=== PATIENT | female | born 1990 | race Caucasian/White ===

== ENCOUNTER 2018-06-18 13:06 | Emergency (ER) | payer MEDICAID, SELFPAY ==
[2018-06-18 13:07] VITALS: BP 109/67; PULSE 90; RESP 16; TEMP 36.5; O2SAT 98; BMI 30.7
[2018-06-18] MEDS: Ondansetron ODT 4 MG Tablet PO (14:06)
[2018-06-18] MEDS: Naproxen 500 MG Tablet PO (14:06)
--- NOTE | 2018-06-18 14:35 | ED.VISSUMM ---
- ER Visit Summary Date of Service: 06/18/18 Chief Complaint: Right hip pain History of Present Illness: The patient is a [address] Hess. She reports that she has right hip pain that began during her last . Been present for approximately 1-1/2 years. States pain worsened yesterday. Says sharp pains 10 at 10 worsening a 10 currently. Is worsened by walking. She reports that today her right leg gave out and she fell. She denies any other injuries. Physical Examination: Vitals: Stable. Afebrile. Neck: No vertebral tenderness. Full ROM without difficulty. Cleared by NEXUS criteria. Back: No vertebral tenderness. General: A&O x 3. NAD. Cardiovascular exam: Regular rate and rhythm, no murmur, rub or gallop. Respiratory exam: Chest nontender. No crepitus. Clear to auscultation bilaterally. No wheezes or stridor. Abdominal exam: Soft, nontender, nondistended, normal bowel sounds. No pain in RUQ or LUQ specifically. No peritoneal signs. Extremity: Moderate tenderness palpation of the greater trochanter and over the pelvis posteriorly. No pain with internal/external rotation of her hip. She is neurovascular intact distal is normal sensation light touch less than 2 second capillary refill. 2+ dorsalis pedis pulse. No pain with range of motion. Test Results: Right hip/pelvis x-ray is negative. Emergency Department Course and Treatment: Patient was treated with naproxen. Treatment Plan: I do not think that it is in the patient's best interest to treat her chronic right hip pain with opiate-based medications. She will be discharged on naproxen and crutches. Instructed to follow-up her primary care physician for further evaluation potentially referral to physical therapy which she did not complete previously. Disposition: To home in improved and stable condition. Impression: 1. Right hip pain, chronic. This note was generated with [employer] dictation software. It may contain incorrect words, spelling, and punctuation that were not noted in review of the chart prior to signing ED Disposition - Plan for ED Patient: Disposition: Home or Assisted Living Chief Complaint: Lower Extremity Injury Instructions: ED Sprain Hip Prescriptions: Naproxen [Naprosyn] 500 mg PO BID #14 tablet Referrals: Carmen Hess [NON-STAFF] - As soon as possible
--- NOTE | 2018-06-18 14:54 | ED.RN ---
While discharging PT states she needs crutches. Asked Dr. Darling about order and he put order in. Apparently, I took too long getting her crutches and PT left angrily without crutches.
[2018-06-18 14:55] VITALS: PULSE 80; RESP 16
== END 2018-06-18 14:55 | disposition home or self-care (01) ==
PROVIDERS: Emergency Provider Emergency Medicine
DX: M25.551 Pain in right hip (principal); G89.29 Other chronic pain; R19.7 Diarrhea, unspecified; E28.2 Polycystic ovarian syndrome
CPT/HCPCS: 73502; 99283

== ENCOUNTER 2019-01-21 12:30 | Emergency (ER) | payer MEDICAID, SELFPAY ==
[2019-01-21 11:01] VITALS: BMI 31.7
[2019-01-21 12:31] VITALS: BP 144/70; PULSE 107; RESP 16; TEMP 36.6; O2SAT 99; BMI 31.3
--- NOTE | 2019-01-21 12:52 | ED.DCSUM_ITS ---
- ER Visit Summary Date of Service: 01/21/19 Chief Complaint: Low back pain History of Present Illness: The patient is a 28 F presents to the emergency department low back pain. Patient states she does do some lifting at work. She states that 3 days ago, she had a dull ache in her low back. Since then, gotten worse. States last night, she did difficulty moving around because of the pain. She describes it as a band across her lower back. It does not radiate. She denies any problems with bowel or bladder. She denies any change in gait. She did take Flexeril and tramadol with little improvement. The patient went to urgent care. Apparently, she had glucose in her urine was sent over here for evaluation. She is supposed to be on metformin, but states that her blood sugar gets low so she does not take it. Physical Examination: Afebrile, vitals unremarkable. Well-appearing female no acute distress. Head is normocephalic, atraumatic. Pupil's equal round reactive, extraocular muscles intact. Neck supple. Heart regular rate and rhythm. Lungs clear, chest nontender. Abdomen soft, nontender, nondistended. No pulsatile mass. Patient has paraspinal tenderness in the lumbar area, but no bony tenderness. Straight leg raise is negative bilaterally. 2+ symmetric lower extremity pulses. 2+ reflexes. No clonus. No weakness of dorsiflexion, plantar flexion, or extensor hallucis longus bilaterally. Test Results: [] Emergency Department Course and Treatment: The patient has no red flag symptoms. I did review her urine dip from urgent care which did have glucose. Because of this, blood work was obtained was unremarkable. Her x-ray was unremarkable. Her urine was repeated here. There is no glucose. There is some leukocytes. I am not sure if this is contaminant versus a mild urinary tract infection. She does not have CVA tenderness. Her back pain seems entirely muscular. I am going to treat her with a short course of analgesics, antispasmodics, and Bactrim. She is able to ambulate without issue. She is comfortable with evaluation. She will be discharged home. Treatment Plan: [] Disposition: Discharge Impression: 1. Lumbar strain This note was generated with [employer] dictation software. It may contain incorrect words, spelling, and punctuation that were not noted in review of the chart prior to signing ED Disposition - Plan for ED Patient: Disposition: Home or Assisted Living Instructions: ED Low Back Pain Injury Prescriptions: Hydrocodone Bitart/Apap 5-325 [[place] 5MG-325MG] 1 tab PO Q6H PRN PRN 3 Days #10 tab PRN Reason: Pain Smz/Tmp Ds [Bactrim Ds] 1 tab PO BID #14 tab Cyclobenzaprine [Flexeril] 10 mg PO TID PRN #20 tab PRN Reason: Muscle Spasm Referrals: Care Physician,No Primary [Primary Care Provider] -
[2019-01-21 13:08] LABS: Absolute Lymphocyte Count 2.68 X10^3/ul (0.83-4.51); Absolute Neutrophil Count 3.3 X10^3/uL (2.0-7.7); Basophil# 0.03 X10^3/uL; Basophil% 0.5 % (0-1); Eosinophil# 0.13 X10^3/uL; Hematocrit 45.4 % (37-47); Hemoglobin 15.5 g/dl (12.0-15.0); Lymphocyte # 2.68 X10^3/ul (4.0); Lymphocyte % 40.5 % (19-41); Mean Corp Hgb Conc 34.1 g/gl (32-36); Mean Corpuscular Hgb 30.3 pg (27.0-32.0); Mean Corpuscular Volume 88.7 fL (81-99); Mean Platelet Vol. 9.4 fl (6.2-12.0); Monocyte# 0.45 X10^3/uL; Monocyte% 6.8 % (0-10); Neutrophil # 3.32 X10^3/uL (2.7-7.7); Platelet Count 193 K/mm3 (150-450); RBC Distribution Width SD 42.2 fl (35.1-43.9); Red Blood Count 5.12 M/mm3 (4.2-5.4); White Blood Count 6.6 K/mm3 (4.4-11.0)
[2019-01-21 13:09] LABS: POSITIVE COUNT NO; POSITIVE DIFFERENTIAL NO; POSITIVE MORPHOLOGY NO
[2019-01-21] MEDS: 0.9% Normal Saline 1,000 ML 1000 ML IV (13:13)
[2019-01-21] MEDS: Ondansetron 4 MG/2 ML Vial IV (13:13)
[2019-01-21] MEDS: Morphine 4 MG/ML Syringe IV (13:16)
[2019-01-21 13:19] LABS: Anion Gap 3 (5-15); BUN 10 mg/dL (7-18); BUN/Creat Ratio 12.3 RATIO (10-20); Calcium,Total 9.4 mg/dL (8.5-10.1); Chloride 108 mmol/L (98-107); Creatinine, Serum 0.81 mg/dL (0.55-1.02); EST Glomerular Filtration Rate 87 mL/min (>60); Est Glom Filt Rate - Afr Amer 106 mL/min (>60); Estimated Creatinine Clearance 98.76 ml/min; Glucose 80 mg/dL (74-106); Sodium Level 139 mmol/L (136-145)
--- NOTE | 2019-01-21 13:50 | RAD_ITS ---
STUDY: X-RAY - LUMBAR SPINE REASON FOR EXAM: Female, 28 years old. 3 day history of low back pain. TECHNIQUE: 3 view(s) of the lumbar spine were obtained. COMPARISON: None FINDINGS: Normal lumbar lordosis. There is a minimal levoscoliosis of the lumbar spine. There is a normal alignment of the vertebrae. Normal vertebral bodies and endplates. Normal disc space heights. The soft tissue structures are unremarkable. RAD/Lumbar Spine 2 or 3 Views IMPRESSION: Normal x-ray examination of the lumbar spine. Electronically Signed: Jayson Bowman, at 14:36 EDT , Service support ,
[2019-01-21 14:59] LABS: Bacteria 0 SEEN /hpf (None Seen); Mucous, Urine 0 SEEN /hpf (<or=2+); Red Blood Cells-Urine 0 SEEN /hpf (0-5)
[2019-01-21 15:01] LABS: Color, Urine Yellow (Yellow); Glucose, Dipstick Normal (Normal); Ketone-Dipstick Negative (Negative); Leukocyte Esterase-Dipstick 25 /ul (Negative); Nitrite-Dipstick Negative (Negative); Occult Blood-Urine Negative /ul (Negative); Protein-Dipstick Negative (Negative); Urine Bilirubin Dipstick Negative (Negative); Urine Clarity Clear (Clear); Urine Urobilinogen Normal (Normal)
[2019-01-21 15:07] LABS: Squamous Epithelial Cells - UA 0-5 SEEN /hpf (5-10); White Blood Cells 0-5 SEEN /hpf (0-5)
[2019-01-21] MEDS: LORazepam 2 MG/ML Syringe 1 MG IV (15:13)
[2019-01-21] MEDS: Ketorolac 30 MG/ML Syringe IV (15:13)
[2019-01-21 15:19] VITALS: BP 119/69; PULSE 80; RESP 18; O2SAT 98
[2019-01-21 16:02] VITALS: RESP 18
--- NOTE | 2019-01-21 16:03 | ED.RN ---
PT HAD ATIVAN AT 1513, PT CALLED A FAMILY MEMBER FOR A RIDE HOME.
== END 2019-01-21 16:06 | disposition home or self-care (01) ==
LOC: ED 12:55
PROVIDERS: Emergency Provider Emergency Medicine
DX: S29.012A Strain of muscle and tendon of back wall of thorax, initial encounter (principal); X58.XXXA Exposure to other specified factors, initial encounter; Y93.9 Activity, unspecified; Y92.9 Unspecified place or not applicable; Y99.9 Unspecified external cause status; E11.9 Type 2 diabetes mellitus without complications; F41.9 Anxiety disorder, unspecified
CPT/HCPCS: 72100; 80048; 81001; 85025; 96361; 96374; 96375; 99284; J7030; A4216; J2405

== ENCOUNTER 2019-01-27 08:55 | Emergency (ER) | payer MEDICAID, SELFPAY ==
[2019-01-27 08:57] VITALS: BP 122/68; PULSE 96; RESP 20; TEMP 35.9; O2SAT 100; BMI 33.7
--- NOTE | 2019-01-27 09:13 | CT_ITS ---
STUDY: CT ABDOMEN AND PELVIS WITH CONTRAST REASON FOR EXAM: Female, 28 years old. Right flank pain and lower abdominal pain. RADIATION DOSAGE (If Supplied By Facility): CTDIvol = ( 12.94 ) mGy, DLP = ( 1190.83 ) mGycm TECHNIQUE: Transaxial images were obtained from the dome of the diaphragm to the symphysis pubis without oral contrast. 100mL IV Isovue 300 was administered. Sagittal and coronal images were reconstructed. Individualized dose optimization techniques were used for this CT. COMPARISON: None. FINDINGS: Mild degree of increased linear markings at the lung bases suggestive of bibasilar linear atelectasis. The visualized portions of the heart are within normal limits. There is decreased attenuation of the liver consistent with steatosis. Normal gallbladder and extrahepatic biliary system. Normal spleen. Normal pancreas. Normal bilateral adrenal glands. Normal right kidney. Normal left kidney. Normal visualized stomach. Normal small intestine. Normal colon. The appendix is visualized and appears normal. Normal abdominal aorta. Normal inferior vena cava. Normal retroperitoneum. Normal urinary bladder. Small bilateral benign-appearing inguinal lymph nodes. There is a small umbilical hernia containing fat. Normal osseous structures. Straightening of the normal lumbar lordosis. CT/Abdomen/Pelvis W IV Cont ONLY IMPRESSION: Fatty infiltration of the liver. Electronically Signed: Jayson Bowman, at 10:40 EDT , Service support ,
--- NOTE | 2019-01-27 09:14 | ED.VISSUMM ---
- ER Visit Summary Date of Service: 01/27/19 Chief Complaint: Back and abdominal pain History of Present Illness: The patient is a 28 F who notes 10 days of continued low back pain. She was seen in the emergency department last week for this. She states that after the muscle relaxants it seems to be more localized on the left lower SI region. She also notes some continued discomfort on the right. Now she notes lower abdominal pain. She states that she feels some radiation to the flanks. She notes she has a history of PCOS. She has no primary care physician and states that she tried to call one but they cannot see her until March. 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 She states that she is tired of low back pain and needs a gone because she has missed too much work. No fevers. No rashes. She states that she had some dysuria but she did not have any when she urinated here in the department. No constipation or diarrhea. Physical Examination: Afebrile vital signs are stable Gen: Well-nourished well-developed Head: Normocephalic atraumatic Eyes: Perrl EOMI ENT: TMs clear no rhinorrhea moist mucous membranes Neck: Supple no lymphadenopathy no JVD nontender CVS: Regular rate rhythm no murmurs normal S1-S2 Respiratory: No distress clear to auscultation bilaterally chest nontender Abdomen: Soft tenderness in the lower quadrants without guarding or rebound nondistended normal bowel sounds no masses Back: Painful range of motion in the low back and tenderness to palpation particularly on the left SI region Extremity: Nontender no edema Skin: Normal color no rash Neuro: alert orientated ?3 CN II-XII intact normal strength sensation reflexes gait cerebellar Psych: Normal affect normal mood Emergency Department Course and Treatment: CBC and BMP showed glucose. Urinalysis contaminated 5-10 epithelial cells 2+ bacteria negative nitrates. test is negative. CT down pelvis demonstrated no obvious pathology to explain the patient's pain. A pelvic ultrasound was obtained which was also negative. Patient received Toradol for pain. At this point I do not have an obvious cause for the patient's pain. It is reproducible with her movement so there is very likely a musculoskeletal component to it however is not gotten better in 10 days. 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 Impression: 1. Acute back pain 2. Acute pelvic pain This note was generated with [employer] dictation software. It may contain incorrect words, spelling, and punctuation that were not noted in review of the chart prior to signing ED Disposition - Plan for ED Patient: Disposition: Home or Assisted Living Instructions: ED Pelvic Pain [facility] Prescriptions: Ketorolac [Toradol] 10 mg PO TID PRN PRN #15 tab PRN Reason: Pain Referrals: Praveen Russell MD [STAFF PHYSICIAN] - (Call to arrange early follow-up with primary care) Additional Instructions: I would also recommend you call your INVESTMENT SALES ASSISTANT for follow-up.
[2019-01-27 09:36] LABS: Mucous, Urine 0 SEEN /hpf (<or=2+)
[2019-01-27 09:39] LABS: Absolute Lymphocyte Count 1.32 X10^3/ul (0.83-4.51); Absolute Neutrophil Count 4.5 X10^3/uL (2.0-7.7); Basophil# 0.03 X10^3/uL; Basophil% 0.5 % (0-1); Eosinophil# 0.17 X10^3/uL; Eosinophils% 2.6 % (0-5); Hematocrit 43.3 % (37-47); Hemoglobin 15.1 g/dl (12.0-15.0); Lymphocyte # 1.32 X10^3/ul (4.0); Lymphocyte % 19.9 % (19-41); Mean Corp Hgb Conc 34.9 g/gl (32-36); Mean Corpuscular Hgb 30.5 pg (27.0-32.0); Mean Corpuscular Volume 87.5 fL (81-99); Mean Platelet Vol. 9.4 fl (6.2-12.0); Monocyte# 0.67 X10^3/uL; Monocyte% 10.1 % (0-10); Neutrophil # 4.45 X10^3/uL (2.7-7.7); Neutrophil % 66.9 % (47-70); Platelet Count 181 K/mm3 (150-450); RBC Distribution Width CV 12.9 % (11.6-14.6); RBC Distribution Width SD 41.2 fl (35.1-43.9); Red Blood Count 4.95 M/mm3 (4.2-5.4); White Blood Count 6.6 K/mm3 (4.4-11.0)
[2019-01-27 09:40] LABS: Color, Urine Yellow (Yellow); Glucose, Dipstick Normal (Normal); Ketone-Dipstick Negative (Negative); Leukocyte Esterase-Dipstick 25 /ul (Negative); Nitrite-Dipstick Negative (Negative); Occult Blood-Urine 25 /ul (Negative); Protein-Dipstick 15 mg/dl (Negative); Urine Bilirubin Dipstick Negative (Negative); Urine Clarity Sl. Cloudy (Clear); Urine Urobilinogen 1 mg/dl (Normal)
[2019-01-27 09:44] LABS: Internal QC Validated? YES +Cl - CLEAR BKGD; Pregnancy, Urine Negative Negative
[2019-01-27 09:47] LABS: POSITIVE COUNT NO; POSITIVE DIFFERENTIAL NO; POSITIVE MORPHOLOGY NO
[2019-01-27 09:55] LABS: Bacteria 2+ /hpf (None Seen); Red Blood Cells-Urine 0-5 SEEN /hpf (0-5); Squamous Epithelial Cells - UA 5-10 SEEN /hpf (5-10); White Blood Cells 0-5 SEEN /hpf (0-5)
[2019-01-27 09:56] LABS: ALB/GLOB Ratio 1.3 RATIO (0.9-2.4); AST(SGOT) 24 U/L (15-37); Alanine Aminotransfer ALT/SGPT 37 U/L (13-56); Albumin, Serum 4.2 g/dL (3.2-5.0); Alkaline Phosphatase 86 U/L (45-117); Anion Gap 5 (5-15); BUN 10 mg/dL (7-18); BUN/Creat Ratio 9.9 RATIO (10-20); Calcium,Total 8.9 mg/dL (8.5-10.1); Chloride 107 mmol/L (98-107); Creatinine, Serum 1.01 mg/dL (0.55-1.02); EST Glomerular Filtration Rate 68 mL/min (>60); Est Glom Filt Rate - Afr Amer 82 mL/min (>60); Globulin 3.3 g/dL (2.2-4.2); Glucose 113 mg/dL (74-106); Potassium 4.3 mmol/L (3.5-5.1); Protein, Total 7.5 g/dL (6.4-8.2); Sodium Level 139 mmol/L (136-145)
--- NOTE | 2019-01-27 10:58 | US_ITS ---
STUDY: ULTRASOUND OF THE FEMALE PELVIS - COMPLETE REASON FOR EXAM: Female, 28 years old. Bilateral pelvic pain for 10 days. Dyspareunia. History of polycystic ovary disease. LMP: 2 years ago. TECHNIQUE: Transabdominal and Transvaginal TECHNICAL QUALITY: Adequate. COMPARISON: None. FINDINGS: The uterus is anteverted and is in a midline position. The uterus measures 7.9 cm x 5.1 cm x 4.4 cm. There is a Nabothian cyst of the cervix. The endometrium measures 6 mm in thickness, and is hyperechoic. There is no demonstrated endometrial mass. There is no demonstrated myometrial mass. I.U.D. - The patient does not have an I.U.D. The right ovary is visualized. The right ovary measures 3.9 cm x 2.8 cm x 2.5 cm. There is no right ovarian cyst or ovarian mass. There is no visualized right adnexal mass or complex lesion. There is normal arterial and normal venous vascularity. The left ovary is visualized. The left ovary measures 3.9 cm x 3.8 cm x 2.4 cm. There is no left ovarian cyst or ovarian mass. There is no visualized left adnexal mass or complex lesion. There is normal arterial and normal venous vascularity. There is no fluid in the cul-de-sac. Polycystic ovary disease: Yes. US/Transvaginal Non- IMPRESSION: Normal female pelvis. Electronically Signed: Jayson Bowman, at 13:24 EDT , Service support ,
[2019-01-27] MEDS: Ketorolac 30 MG/ML Syringe IV (11:00)
[2019-01-27 13:48] VITALS: BP 110/89; PULSE 82; RESP 16; O2SAT 98
== END 2019-01-27 13:52 | disposition home or self-care (01) ==
PROVIDERS: Emergency Provider Emergency Medicine
DX: M54.5 Low back pain (principal); R10.2 Pelvic and perineal pain; R30.0 Dysuria; E28.2 Polycystic ovarian syndrome; Z72.0 Tobacco use; Z79.899 Other long term (current) drug therapy
CPT/HCPCS: 74177; 76830; 80053; 81001; 81025; 85025; 96374; 99283; Q9967; A4216

== ENCOUNTER → 2019-04-29 13:44 | Outpatient (CLI) | payer MEDICAID, SELFPAY ==
[2019-04-29 11:30] VITALS: BMI 33.7
[2019-04-29 14:36] LABS: Mucous, Urine 0 SEEN /hpf (<or=2+)
[2019-04-29 14:52] LABS: Color, Urine Yellow (Yellow); Glucose, Dipstick Normal (Normal); Ketone-Dipstick Negative (Negative); Leukocyte Esterase-Dipstick 100 /ul (Negative); Nitrite-Dipstick Positive (Negative); Occult Blood-Urine 10 /ul (Negative); Protein-Dipstick Negative (Negative); Specific Gravity, Urine 1.015 (1.002-1.030); Urine Bilirubin Dipstick Negative (Negative); Urine Clarity Sl. Cloudy (Clear); Urine Urobilinogen Normal (Normal)
[2019-04-29 15:11] LABS: Bacteria 4+ /hpf (None Seen)
[2019-04-29 15:12] LABS: Squamous Epithelial Cells - UA 10-25 SEEN /hpf (5-10)
[2019-04-29 15:14] LABS: Red Blood Cells-Urine 0-5 SEEN /hpf (0-5)
[2019-04-29 15:15] LABS: White Blood Cells 10-25 SEEN /hpf (0-5)
== END ==
PROVIDERS: Referring Provider Physician Assistant Surgical; Visit Provider Physician Assistant Surgical
DX: R39.15 Urgency of urination (principal)
CPT/HCPCS: 81001; 87086; 87088; 87186

== ENCOUNTER → 2019-05-09 14:27 | Outpatient (CLI) | payer MEDICAID, SELFPAY ==
[2019-05-09 12:24] VITALS: BMI 33.7
[2019-05-09 14:37] LABS: Mucous, Urine 0 SEEN /hpf (<or=2+); Red Blood Cells-Urine 0 SEEN /hpf (0-5); White Blood Cells 0 SEEN /hpf (0-5)
[2019-05-09 15:15] LABS: Glucose, Dipstick Normal (Normal); Ketone-Dipstick Negative (Negative); Leukocyte Esterase-Dipstick Negative /ul (Negative); Nitrite-Dipstick Positive (Negative); Occult Blood-Urine Negative /ul (Negative); Protein-Dipstick Negative (Negative); Specific Gravity, Urine 1.005 (1.002-1.030); Urine Clarity Sl. Cloudy (Clear); Urine Urobilinogen 1 mg/dl (Normal)
[2019-05-09 15:22] LABS: Color, Urine SEE COMMENT BELOW (Yellow); Urine Bilirubin Dipstick 1 mg/dL (Negative)
[2019-05-09 15:25] LABS: Bacteria 1+ /hpf (None Seen); Squamous Epithelial Cells - UA 0-5 SEEN /hpf (5-10)
== END ==
PROVIDERS: Referring Provider Physician Assistant Surgical; Visit Provider Physician Assistant Surgical
DX: R30.0 Dysuria (principal)
CPT/HCPCS: 81001; 87086

== ENCOUNTER → 2019-05-16 13:07 | Outpatient (CLI) | payer MEDICAID, SELFPAY ==
[2019-05-14 15:13] VITALS: BMI 32.7
[2019-05-16 14:18] LABS: Amphetamine Urine VISTA NEGATIVE (<1000 ng/mL); Barbiturate Urine VISTA NEGATIVE (< 200 ng/mL); Benzodiazepine Urine VISTA NEGATIVE (< 200 ng/mL); Cocaine Urine VISTA NEGATIVE (< 300 ng/mL); Ecstacy Urine VISTA NEGATIVE (< 500 ng/mL); Methadone Urine VISTA NEGATIVE (< 300 ng/mL); PCP Urine VISTA NEGATIVE (< 25 ng/mL); THC Urine VISTA NEGATIVE (< 50 ng/mL); Vista UDS pH Range 6
== END ==
PROVIDERS: Family Provider Internal Medicine; PCP Internal Medicine; Referring Provider Internal Medicine; Visit Provider Internal Medicine
DX: F41.9 Anxiety disorder, unspecified (principal)
CPT/HCPCS: 80307

== ENCOUNTER → 2019-05-22 13:55 | Outpatient (CLI) | payer MEDICAID, SELFPAY ==
[2019-05-14 15:13] VITALS: BMI 32.7
--- NOTE | 2019-05-22 14:06 | US_ITS ---
STUDY: RENAL ULTRASOUND - COMPLETE REASON FOR EXAM: Female, 29 years old. Urinary tract infection TECHNIQUE: Ultrasound evaluation of the kidneys was performed with real-time and static munoz-scale imaging. COMPARISON: None. FINDINGS: RIGHT KIDNEY: Normal location of the right kidney, which is normal in size. The right kidney measures 10.2 cm. There is a normal cortex of the right kidney. The renal cortex measures 1.3 cm. There is no right renal mass or cyst. There are no right renal calculi. There is no right hydronephrosis. DISTAL RIGHT URETER: There is non-visualization of the distal right ureter. There is no demonstrated right ureterovesical junction calculus. There is a visualized right ureteral jet. LEFT KIDNEY: Normal location of the left kidney, which is normal in size. The left kidney measures 11.2 cm. There is a normal cortex of the left kidney. The renal cortex measures 1.3 cm. There is no left renal mass or cyst. There are no left renal calculi. There is no left hydronephrosis. DISTAL LEFT URETER: There is non-visualization of the distal left ureter. There is no demonstrated left ureterovesical junction calculus. There is a visualized left ureteral jet. BLADDER: The distended urinary bladder has a volume of 254 ml. The empty urinary bladder has a volume of 36 ml. There is a normal wall thickness of the distended urinary bladder. There is no demonstrated mass within the urinary bladder. There are no demonstrated bladder calculi. US/Kidney and Bladder IMPRESSION: Normal ultrasound of the kidneys and urinary bladder. No hydronephrosis. Electronically Signed: Gadiel Lynn MD at 16:59 EDT , Service support ,
== END ==
PROVIDERS: Family Provider Internal Medicine; PCP Internal Medicine; Referring Provider Urology; Visit Provider Urology
DX: N39.0 Urinary tract infection, site not specified (principal)
CPT/HCPCS: 76770

== ENCOUNTER 2019-06-01 15:12 | Emergency (ER) | payer MEDICAID, SELFPAY ==
[2019-05-14 15:13] VITALS: BMI 32.7
[2019-06-01 15:13] VITALS: BP 124/93; PULSE 105; RESP 16; TEMP 36.9; O2SAT 97; BMI 29.0
[2019-06-01 16:37] LABS: Amphetamine Urine VISTA NEGATIVE (<1000 ng/mL); Barbiturate Urine VISTA NEGATIVE (< 200 ng/mL); Benzodiazepine Urine VISTA NEGATIVE (< 200 ng/mL); Cocaine Urine VISTA NEGATIVE (< 300 ng/mL); Ecstacy Urine VISTA NEGATIVE (< 500 ng/mL); Methadone Urine VISTA NEGATIVE (< 300 ng/mL); PCP Urine VISTA NEGATIVE (< 25 ng/mL); THC Urine VISTA NEGATIVE (< 50 ng/mL); Vista UDS pH Range 6
--- NOTE | 2019-06-01 16:42 | ED.DCSUM_ITS ---
- ER Visit Summary Date of Service: 06/01/19 Chief Complaint: Requesting drug screen History of Present Illness: The patient is a 29 F who is requesting a drug screen. She was accused of taking benzodiazepines. She has no symptoms. Physical Examination: Exam unremarkable. Test Results: Tox screen was negative. Emergency Department Course and Treatment: Patient was given a copy of her tox screen. Follow-up as needed. Treatment Plan: As above Disposition: Discharge Impression: 1. Requesting drug screen This note was generated with [employer] dictation software. It may contain incorrect words, spelling, and punctuation that were not noted in review of the chart prior to signing ED Disposition - Plan for ED Patient: Referrals: Nithya Guevara MD [Primary Care Provider] -
== END 2019-06-01 17:01 | disposition home or self-care (01) ==
LOC: ED 16:21
PROVIDERS: Emergency Provider Emergency Medicine; Family Provider Internal Medicine; PCP Internal Medicine
DX: Z04.89 Encounter for examination and observation for other specified reasons (principal)
CPT/HCPCS: 80307; 99282

== ENCOUNTER → 2019-06-11 16:29 | Outpatient (CLI) | payer MEDICAID, SELFPAY ==
[2019-06-01 15:13] VITALS: BMI 29.0
--- NOTE | 2019-06-11 16:30 | RAD_ITS ---
STUDY: X-RAY - LEFT HAND REASON FOR EXAM: Female, 29 years old. Trauma TECHNIQUE: 3 view(s) of the hand. COMPARISON: None. FINDINGS: Normal radiocarpal articulation. Normal distal radioulnar joint. Normal visualized carpal bones. Normal carpal articulations Normal carpometacarpal articulation of the thumb. Normal second through fifth carpometacarpal joints. Normal metacarpi. Normal metacarpophalangeal joint of the thumb. Normal interphalangeal joint of the thumb. Normal proximal and distal phalanges of the thumb. Normal metacarpophalangeal joints of the second through fifth fingers. Normal proximal and distal interphalangeal joints of the second through fifth fingers. Normal phalanges of the second through fifth fingers. The soft tissue structures are unremarkable. RAD/Hand Min 3 Views IMPRESSION: Normal x-ray examination of the hand. Electronically Signed: Harry Silva MD at 16:51 EDT , Service support ,
== END ==
PROVIDERS: Family Provider Internal Medicine; PCP Internal Medicine; Referring Provider Physician Assistant; Visit Provider Physician Assistant
DX: S67.02XA Crushing injury of left thumb, initial encounter (principal); X58.XXXA Exposure to other specified factors, initial encounter; Y93.9 Activity, unspecified; Y92.9 Unspecified place or not applicable; Y99.9 Unspecified external cause status
CPT/HCPCS: 73130

== ENCOUNTER → 2019-07-17 08:27 | Outpatient (CLI) | payer MEDICAID, SELFPAY ==
[2019-07-16 16:44] VITALS: BMI 34.8
[2019-07-17 08:36] LABS: Red Blood Cells-Urine 0 SEEN /hpf (0-5); White Blood Cells 0 SEEN /hpf (0-5)
[2019-07-17 10:18] LABS: Color, Urine Yellow (Yellow); Glucose, Dipstick 1000 mg/dl (Normal); Ketone-Dipstick Negative (Negative); Leukocyte Esterase-Dipstick Negative /ul (Negative); Nitrite-Dipstick Negative (Negative); Occult Blood-Urine Negative /ul (Negative); Protein-Dipstick Negative (Negative); Urine Bilirubin Dipstick Negative (Negative); Urine Clarity Sl. Cloudy (Clear); Urine Urobilinogen Normal (Normal); Urine pH 6.5 (5.0 - 8.0)
[2019-07-17 10:25] LABS: Bacteria 1+ /hpf (None Seen); Mucous, Urine 1+ /hpf (<or=2+); Squamous Epithelial Cells - UA 0-5 SEEN /hpf (5-10)
== END ==
PROVIDERS: Family Provider Internal Medicine; PCP Internal Medicine; Referring Provider Nurse Practitioner Family; Visit Provider Nurse Practitioner Family
DX: A02.9 Salmonella infection, unspecified (principal)
CPT/HCPCS: 81001; 87086; 87088; 87506

== ENCOUNTER → 2019-07-23 11:37 | Outpatient (CLI) | payer MEDICAID, SELFPAY ==
[2019-07-16 16:44] VITALS: BMI 34.8
== END ==
PROVIDERS: Family Provider Internal Medicine; PCP Internal Medicine; Referring Provider Nurse Practitioner Family; Visit Provider Nurse Practitioner Family
DX: A02.9 Salmonella infection, unspecified (principal)
CPT/HCPCS: 87506

== ENCOUNTER → 2020-01-12 13:02 | Outpatient (CLI) | payer MEDICAID, SELFPAY ==
[2019-07-16 16:44] VITALS: BMI 34.8
[2020-01-12 15:43] LABS: Hematocrit 38.5 % (37-47); Hemoglobin 12.7 g/dL (12.0-15.0); Mean Platelet Vol. 9.8 fl (6.2-12.0); Platelet Count 201 K/mm3 (150-450); RBC Distribution Width CV 14.1 % (11.6-14.6); RBC Distribution Width SD 46.5 fl (35.1-43.9); Red Blood Count 4.23 M/mm3 (4.2-5.4); White Blood Count 9.2 K/mm3 (4.4-11.0)
[2020-01-12 16:15] LABS: ALB/GLOB Ratio 0.7 RATIO (0.9-2.4); AST(SGOT) 12 U/L (15-37); Alanine Aminotransfer ALT/SGPT 13 U/L (13-56); Albumin, Serum 2.7 g/dL (3.2-5.0); Alkaline Phosphatase 76 U/L (45-117); Anion Gap 8 (5-15); BUN 9 mg/dL (7-18); BUN/Creat Ratio 15.4 RATIO (10-20); Calcium,Total 8.6 mg/dL (8.5-10.1); Chloride 110 mmol/L (98-107); Creatinine, Serum 0.58 mg/dL (0.55-1.02); EST Glomerular Filtration Rate 127 mL/min (>60); Est Glom Filt Rate - Afr Amer 154 mL/min (>60); Globulin 3.8 g/dL (2.2-4.2); Glucose 150 mg/dL (74-106); Potassium 3.8 mmol/L (3.5-5.1); Protein, Total 6.5 g/dL (6.4-8.2); Sodium Level 139 mmol/L (136-145)
== END ==
PROVIDERS: PCP Internal Medicine
DX: Z34.93 Encounter for supervision of normal pregnancy, unspecified, third trimester (principal); L29.9 Pruritus, unspecified
CPT/HCPCS: 80053; 85027

== ENCOUNTER 2020-07-09 17:14 | Emergency (ER) | payer MEDICAID, SELFPAY ==
[2020-03-19 10:59] VITALS: BMI 34.8
[2020-07-09 17:15] VITALS: BP 122/71; PULSE 83; RESP 16; TEMP 36.3; O2SAT 100; BMI 30.7
[2020-07-09 17:25] VITALS: BP 122/71; PULSE 83; RESP 16; TEMP 36.3; O2SAT 100
[2020-07-09] MEDS: Ondansetron 4 MG/2 ML Vial IV (17:47)
[2020-07-09] MEDS: Ketorolac 15 MG/ML Vial IV (17:48)
[2020-07-09] MEDS: Morphine 4 MG/ML Syringe IV (17:49)
--- NOTE | 2020-07-09 19:07 | ED.DCSUM_ITS ---
History of Present Illness Chief Complaint: Back Informant: Patient Onset: Hours Context: Sudden Onset Injury: - - Bending to get into a car Timing: Continuous Quality: Aching, Throbbing Location: Lumbar Current Severity: Severe Maximum Severity: Severe Worsened by: improves with: Movement, Bending Relieved by: Nothing Associated Symptoms: - - There are no associated symptoms. All of the associated symptoms should be blck/ Narrative: Patient is a 30-year-old woman who presents with acute right-sided low back pain. She was shopping. She was getting into her car when pain started. She denies radicular pain. She has bowel bladder function. No saddle paresthesia or anesthesia. She denies foot drop. She denies buckling of her knees to suggest quadricep weakness. She has no history of back problems. There is no history of trauma or fall. She denies dysuria, frequency, urgency or hematuria. She states movement or touching it causes her pain. Prior similar symptoms: No Recent Illness/Hospitalization: No - Past Medical History (1) Back pain Status: Acute (2) Cystitis Status: Acute (3) Migraine Status: Acute (4) Arrhythmia Status: Chronic Past Medical History - Allergies and Home Meds Allergies/Adverse Reactions: Allergies cyclobenzaprine [From Flexeril] Allergy (Verified 07/09/20 17:15) Swelling Penicillins Allergy (Verified 07/09/20 17:15) Swelling Primary Care Physician: Nithya Guevara MD [Primary Care Provider] - Prior records reviewed: Yes Surgical History: noncontributory Lives: With Family Smoking Status: Current every day smoker Alcohol: Rare Drugs: None Review of Systems General: Denies: Chills, Fever, Malaise, Subjective, Sweats, Weight loss, - Cardiovascular: Denies: Chest pain, Palpitations Respiratory: Denies: Dyspnea, Cough, Dyspnea on exertion Gastrointestinal: Denies: Abdominal pain, Nausea, Vomiting, Diarrhea, Melena, Hematochezia Genitourinary: Denies: Dysuria, Hematuria, Frequency Musculoskeletal: Reports: Back pain. Denies: Myalgias, Arthralgias, Neck pain, Swelling, Extremity Pain, -, - Skin: Denies: Rash, Wounds Neurological: Denies: Headache, Weakness, Parasthesia, Numbness, -, - Psych: Reports: Anxiety Endocrine: Denies: Polyuria, Polydipsia Hematologic: Denies: Easy bruising, Easy bleeding Physical Exam Vital Signs/Narrative: Vital Signs Temp Pulse Resp BP Pulse Ox 07/09/20 17:25 97.4 F L 83 16 122/71 H 100 07/09/20 17:15 97.4 F L 83 16 122/71 H 100 Inital Vital Signs reviewed: Yes General: Well nourished, Well developed Head: Normocephalic, Atraumatic Eyes: Perrl, EOMI Neck: Supple, Nontender, No lymphadenopathy, No JVD Cardiovascular: Regular rate, Regular rhythm, No murmurs, Normal S1, Normal S2 Respiratory: No distress, CTA bilaterally, Chest nontender Abdomen: Soft, Nontender, Nondistended, Normal bowel sounds, No masses. Negative for: Hepatomegaly, Splenomegaly, Mass, Pulsatile mass Rectal: Deferred Back: Normal Inspection, Paraspinal Tenderness - Right side only, Negative SLR - Right, Negative SLR - Left. Negative for: Nontender, Surgical Scar, Spinal tenderness, CVA tenderness, Positive SLR - Right, Positive SLR - Left Extremeties: Nontender, No edema Skin: Normal color, No rash Neuro: Alert, Oriented, Normal Strength, Normal Sensation, Normal DTR, Normal Gait Reflexes: Right Patellar, Right Achilles, Left Patellar, Left Achilles, - - DTR 2+. Negative for: Right Clonus, Right Babinski, Left Clonus, Left Babinski Psychological: - - Animated, tearful Diagnostic/Tx/Re-eval - Medical Decision Making IV was established and she was treated with 4 mg of morphine IV push and 15 mg of Toradol IV push. She reports no improvement. However, on exam she is no longer tender to palpation as she was when she presented. Plan is NSAIDs ice and follow-up with PCP ED Disposition - Plan for ED Patient: Disposition: Home or Assisted Living Diagnosis: Left low back strain acute, Acute low back pain without sciatica Instructions: ED LUMBAR SPRAIN/STRAIN Prescriptions: Naproxen [Naprosyn] 500 mg PO BID #14 tab Transmission Status: Pending to [id number] Referrals: Nithya Guevara MD [Primary Care Provider] - As Needed
[2020-07-09 19:33] VITALS: BP 118/68; PULSE 82; RESP 18; TEMP 36.8; O2SAT 98
[2020-07-09 19:35] VITALS: O2SAT 98
[2020-07-09 20:11] LABS: Color, Urine Straw (Yellow); Glucose, Dipstick Normal (Normal); Ketone-Dipstick Negative (Negative); Leukocyte Esterase-Dipstick 25 /ul (Negative); Nitrite-Dipstick Positive (Negative); Occult Blood-Urine 50 /ul (Negative); Protein-Dipstick Negative (Negative); Specific Gravity, Urine 1.015 (1.002-1.030); Urine Bilirubin Dipstick Negative (Negative); Urine Clarity Clear (Clear); Urine Urobilinogen Normal (Normal)
== END 2020-07-09 19:45 | disposition home or self-care (01) ==
PROVIDERS: Emergency Provider Emergency Medicine; PCP Internal Medicine
DX: S39.012A Strain of muscle, fascia and tendon of lower back, initial encounter (principal); X50.1XXA Overexertion from prolonged static or awkward postures, initial encounter; Y93.9 Activity, unspecified; Y92.810 Car as the place of occurrence of the external cause; Y99.9 Unspecified external cause status; F17.200 Nicotine dependence, unspecified, uncomplicated
CPT/HCPCS: 81002; 96374; 96375; 99283; A4216; J2405

== ENCOUNTER 2020-07-10 00:21 | Emergency (ER) | payer MEDICAID, SELFPAY ==
[2020-07-09 17:15] VITALS: BMI 30.7
[2020-07-10 00:22] VITALS: BP 126/81; PULSE 71; RESP 15; TEMP 36.4; O2SAT 97; BMI 34.4
--- NOTE | 2020-07-10 00:34 | CT_ITS ---
HISTORY: C/O BACK PAIN SUDDEN ONSET LOWER ADDITIONAL HISTORY: None provided. EXAMINATION/TECHNIQUE: CT Abdomen And Pelvis W/O Contrast Injection Enteric contrast was not given. Number of images including paperwork: [id number]. A radiation dose optimization technique was used for this scan. COMPARISON: 01/27/2019 FINDINGS: Evaluation of the abdominopelvic organs is limited in the absence of contrast. LOWER THORAX: No consolidation or pleural effusion. Hypoventilatory changes. LIVER: No concerning focal lesion. GALLBLADDER: No radiopaque calculi. BILE DUCTS: No significant biliary dilatation. SPLEEN: Unremarkable. PANCREAS: Unremarkable. ADRENAL GLANDS: Unremarkable. KIDNEYS/URETERS: Unremarkable. BOWEL: No bowel obstruction. No significant bowel wall thickening. No localized inflammation. APPENDIX: Normal. FREE FLUID: No significant free fluid. FREE AIR: None. LYMPH NODES: No pathologic appearing adenopathy. PERITONEUM, RETROPERITONEUM AND MESENTERY: Otherwise unremarkable. VASCULATURE: Unremarkable as imaged. ABDOMINAL WALL: Unremarkable. PELVIS: Unremarkable bladder. Tampon in vagina. No pelvic mass. OSSEOUS AND SOFT TISSUE STRUCTURES: No acute skeletal findings. CT/Abdomen/Pelvis without Cont IMPRESSION: No acute abdominopelvic abnormality. Individualized dose optimization techniques were used for this CT. at 0155 Reported and signed by: Joelle Myers MD Electronically Signed: Joelle Myers MD at 1:54 EDT Tel , Service support ,
--- NOTE | 2020-07-10 00:35 | ED.DCSUM_ITS ---
History of Present Illness Chief Complaint: Back Informant: Patient, Family Onset: Today Current Severity: Moderate Maximum Severity: Severe Narrative: Patient returns to the ER with right-sided back pain. She was seen in the ER earlier today for the same. She states that she threw a backpack over her shoulder earlier but did not feel pain. After try to get out of her car she had pain in the right lower side of her back. She was seen in the ER where she was given morphine and Toradol. She was discharged home with naproxen. Patient now states that she has had UTI symptoms for the past 2 weeks and is wondering if this might be her kidney that is causing her problems. She states the pain is so severe she had trouble rolling from side to side in bed and walking without assistance from her . There was no fall or direct injury to her back. She states that she has been shivering but has not been measuring a fever. - Past Medical History (1) Anxiety Status: Chronic Past Medical History - Allergies and Home Meds Allergies/Adverse Reactions: Allergies cyclobenzaprine [From Flexeril] Allergy (Verified 07/09/20 17:15) Swelling Penicillins Allergy (Verified 07/09/20 17:15) Swelling Primary Care Physician: Nithya Guevara MD [Primary Care Provider] - Prior records reviewed: Yes Surgical History: noncontributory Lives: Spouse/ Significant Other Smoking Status: Current some day smoker Review of Systems General: Reports: Chills. Denies: Fever Eyes: Denies: Visual changes - bilaterally ENT: Denies: Bilateral ear pain Cardiovascular: Denies: Chest pain Respiratory: Denies: Dyspnea, Cough Gastrointestinal: Reports: Abdominal pain - Flank pain. Denies: Nausea, Vomiting Genitourinary: Reports: Dysuria Musculoskeletal: Reports: Back pain - Right flank Skin: Denies: Rash Neurological: Denies: Headache Hematologic: Denies: Easy bruising, Easy bleeding Allergy: Denies: Uticaria Physical Exam Vital Signs/Narrative: Vital Signs Temp Pulse Resp BP Pulse Ox 07/10/20 00:22 97.6 F L 71 15 126/81 H 97 Inital Vital Signs reviewed: Yes General: Well nourished, Well developed Head: Normocephalic ENT: Moist mucous membranes Neck: Supple Cardiovascular: Regular rate, Regular rhythm Respiratory: No distress, CTA bilaterally Abdomen: Soft, Tender - Prepubic tenderness to palpation. Back: - - No reproducible tenderness over the midline spine or paraspinal muscles. Skin: Normal color Neurological: Alert, Oriented x3, - - Jaundice to pulses and good strength on testing. Psychological: Normal affect Diagnostic/Tx/Re-eval Impressions Abdomen/Pelvis CT 07/10/20 00:34 IMPRESSION: No acute abdominopelvic abnormality. Individualized dose optimization techniques were used for this CT. at 0155 Reported and signed by: Joelle Myers MD Electronically Signed: Joelle Myers MD at 1:54 EDT Tel , Service support , 07/10/20 00:34 Abdomen/Pelvis without Cont [CT] Stat Laboratory Results 07/09/20 07/10/20 07/10/20 18:40 01:00 01:00 WBC 7.3 RBC 4.51 Hgb 13.8 Hct 41.2 MCV 91.4 MCH 30.6 MCHC 33.5 RDW Std Deviation 43.3 RDW Coeff of [place] 13.0 Plt Count 181 MPV 9.9 Immature Gran % (Auto) 0.100 Neut % (Auto) 50.7 Lymph % (Auto) 38.2 [place] % (Auto) 7.7 Eos % (Auto) 2.9 Baso % (Auto) 0.4 Absolute Neuts (auto) 3.7 Absolute Lymphs (auto) 2.79 Nucleated RBC % 0 Sodium 141 Potassium 3.9 Chloride 109 H Carbon Dioxide 29.0 Anion Gap 3 L BUN 14 Creatinine 0.99 Estim Creat Clear Calc 76.37 Est GFR (MDRD) Af Amer 84 Est GFR (MDRD) Non-Af 69 BUN/Creatinine Ratio 14.2 Glucose 105 Calcium 8.8 Serum , Qual Urine Color Cancelled Urine Clarity Cancelled Urine pH Cancelled Ur Specific [place] Cancelled U Specif Grav (Refrac) Cancelled Urine Protein Cancelled Urine Glucose (UA) Cancelled Urine Ketones Cancelled Urine Occult Blood Cancelled Urine Nitrite Cancelled Urine Bilirubin Cancelled Urine Urobilinogen Cancelled Ur Leukocyte Esterase Cancelled Urine RBC 0 SEEN Urine WBC 10-25 SEEN Ur Squamous Epith Cells 5-10 SEEN Urine Bacteria 2+ Urine Mucus 0 SEEN 07/10/20 01:00 WBC RBC Hgb Hct MCV MCH MCHC RDW Std Deviation RDW Coeff of [place] Plt Count MPV Immature Gran % (Auto) Neut % (Auto) Lymph % (Auto) [place] % (Auto) Eos % (Auto) Baso % (Auto) Absolute Neuts (auto) Absolute Lymphs (auto) Nucleated RBC % Sodium Potassium Chloride Carbon Dioxide Anion Gap BUN Creatinine Estim Creat Clear Calc Est GFR (MDRD) Af Amer Est GFR (MDRD) Non-Af BUN/Creatinine Ratio Glucose Calcium Serum , Qual NEGATIVE Urine Color Urine Clarity Urine pH Ur Specific [place] U Specif Grav (Refrac) Urine Protein Urine Glucose (UA) Urine Ketones Urine Occult Blood Urine Nitrite Urine Bilirubin Urine Urobilinogen Ur Leukocyte Esterase Urine RBC Urine WBC Ur Squamous Epith Cells Urine Bacteria Urine Mucus - Medical Decision Making Patient was given Toradol, morphine, Zofran, IV fluids here. On repeat evaluation she is resting in bed. Test results are discussed with her. She does have evidence of UTI, but no evidence of significant perirenal stranding on CT scan to suggest pyelonephritis at this time. No evidence of a kidney stone. Patient be given a prescription for [place] along with Bactrim. Urine will be sent for culture. ED Disposition - Plan for ED Patient: Disposition: Home or Assisted Living Diagnosis: Cystitis, Right flank pain Instructions: ED CYSTITIS Female Adult Prescriptions: Smz/Tmp Ds [Bactrim Ds] 1 tab PO BID #14 tab Transmission Status: Pending to [id number] Hydrocodone Bitart/Apap 5-325 [[place] 5MG-325MG] 1 tablet PO Q6H PRN PRN 3 Days #10 tablet PRN Reason: Pain Transmission Status: Received by [id number] Referrals: Nithya Guevara MD [Primary Care Provider] - 3-5 Days if not improving
[2020-07-10] MEDS: Morphine 4 MG/ML Syringe IV (00:58)
[2020-07-10] MEDS: Ondansetron 4 MG/2 ML Vial IV (00:58)
[2020-07-10] MEDS: Ketorolac 30 MG/ML Syringe IV (00:58)
[2020-07-10 01:15] LABS: Absolute Lymphocyte Count 2.79 X10^3/uL (0.83-4.51); Absolute Neutrophil Count 3.7 X10^3/uL (2.0-7.7); Basophil# 0.03 X10^3/uL; Basophil% 0.4 % (0-1); Eosinophil# 0.21 X10^3/uL; Eosinophils% 2.9 % (0-5); Hematocrit 41.2 % (37-47); Hemoglobin 13.8 g/dL (12.0-15.0); Lymphocyte # 2.79 X10^3/ul (4.0); Lymphocyte % 38.2 % (19-41); Mean Corp Hgb Conc 33.5 g/dL (32-36); Mean Corpuscular Hgb 30.6 pg (27.0-32.0); Mean Corpuscular Volume 91.4 fL (81-99); Mean Platelet Vol. 9.9 fl (6.2-12.0); Monocyte# 0.56 X10^3/uL; Monocyte% 7.7 % (0-10); NRBC Flagged by Analyzer 0 % (0-5); Neutrophil % 50.7 % (47-70); Platelet Count 181 K/mm3 (150-450); RBC Distribution Width SD 43.3 fl (35.1-43.9); Red Blood Count 4.51 M/mm3 (4.2-5.4); White Blood Count 7.3 K/mm3 (4.4-11.0)
[2020-07-10 01:21] LABS: Internal QC Validated? YES +Cl - CLEAR BKGD; Pregnancy, Serum, hCG Quali. NEGATIVE Negative
[2020-07-10 01:24] LABS: Anion Gap 3 (5-15); BUN 14 mg/dL (7-18); BUN/Creat Ratio 14.2 RATIO (10-20); Calcium,Total 8.8 mg/dL (8.5-10.1); Chloride 109 mmol/L (98-107); Creatinine, Serum 0.99 mg/dL (0.55-1.02); EST Glomerular Filtration Rate 69 mL/min (>60); Est Glom Filt Rate - Afr Amer 84 mL/min (>60); Estimated Creatinine Clearance 76.37 ml/min; Glucose 105 mg/dL (74-106); Potassium 3.9 mmol/L (3.5-5.1); Sodium Level 141 mmol/L (136-145)
[2020-07-10 01:26] LABS: Mucous, Urine 0 SEEN /hpf (<or=2+); Red Blood Cells-Urine 0 SEEN /hpf (0-5)
[2020-07-10] MEDS: 0.9% Normal Saline 1,000 ML 150 ML IV (01:41)
[2020-07-10 01:42] LABS: Bacteria 2+ /hpf (None Seen); Squamous Epithelial Cells - UA 5-10 SEEN /hpf (5-10); White Blood Cells 10-25 SEEN /hpf (0-5)
[2020-07-10] MEDS: Smz/Tmp Ds Tablet 1 TABLET PO (02:50)
[2020-07-10] MEDS: HYDROcodone Bitartrate/Apap 5/325 Tablet PO (02:50)
== END 2020-07-10 02:59 | disposition home or self-care (01) ==
PROVIDERS: Emergency Provider Emergency Medicine; PCP Internal Medicine
DX: N30.90 Cystitis, unspecified without hematuria (principal); R10.9 Unspecified abdominal pain; F17.200 Nicotine dependence, unspecified, uncomplicated
CPT/HCPCS: 74176; 80048; 84703; 85025; 87086; J7030; A4216; J2405

== ENCOUNTER 2020-07-10 09:20 | Emergency (ER) | payer MEDICAID, SELFPAY ==
[2020-07-10 00:22] VITALS: BMI 34.4
[2020-07-10 09:21] VITALS: BP 125/71; PULSE 74; RESP 18; TEMP 36.5; O2SAT 97; BMI 34.7
--- NOTE | 2020-07-10 09:52 | ED.VIS.GEN ---
History of Present Illness Chief Complaint: Abd Pain Informant: Patient Narrative: 30-year-old female presenting for her third time in 24 hours for back pain and abdominal pain. She states that her lower back hurts when she moves and she has a radiation of pain around her entire abdomen like a band. In the center she has a little bit of tingling. This started at 330 yesterday. She was seen and evaluated and told she had a UTI. CT of the abdomen pelvis was negative. She states that she has not improved overnight. She had one episode of vomiting. She states she took 2 [place] prior to arrival which did not touch her pain. She denies loss of bladder or bowel control. She does still complain of dysuria and frequency. She denies fever or chills. She states I think there is something wrong with my organs. He denies surgical history. She states her only medical problem is tachycardia which she is not currently experiencing. - Past Medical History (1) Back pain Status: Acute (2) Migraine Status: Acute Past Medical History - Allergies and Home Meds Allergies/Adverse Reactions: Allergies cyclobenzaprine [From Flexeril] Allergy (Verified 07/10/20 09:24) Swelling Penicillins Allergy (Verified 07/10/20 09:24) Swelling Primary Care Physician: Nithya Guevara MD [Primary Care Provider] - Past Medical History: None Surgical History: noncontributory Lives: Alone Smoking Status: Current every day smoker Alcohol: None Drugs: None Review of Systems General: Denies: Chills, Fever Eyes: Denies: Visual changes - bilaterally, Diplopia ENT: Denies: Rhinorrhea, Sore throat Cardiovascular: Denies: Chest pain, Palpitations Respiratory: Reports: Dyspnea Gastrointestinal: Reports: Abdominal pain, Nausea, Vomiting. Denies: Constipation, Melena Genitourinary: Reports: Dysuria, Frequency Musculoskeletal: Reports: Back pain Skin: Denies: Rash, Abscess Neurological: Denies: Headache, Weakness Psych: Denies: Depression, Anxiety Physical Exam Vital Signs/Narrative: Vital Signs Temp Pulse Resp BP Pulse Ox 07/10/20 09:21 97.7 F L 74 18 125/71 H 97 Inital Vital Signs reviewed: Yes General: Obese, No Acute Distress Head: Normocephalic, Atraumatic Eyes: Perrl, EOMI. Negative for: Scleral icterus ENT: Moist mucous membranes, No rhinorrhea Cardiovascular: Regular rate, Regular rhythm Respiratory: No distress, CTA bilaterally Abdomen: Soft, Nontender Back: Nontender. Negative for: CVA tenderness, Spinal tenderness Extremities: Nontender, No edema, - - Brisk symmetric bilateral lower extremity reflexes Skin: Normal color, No rash Neurological: Alert, Oriented x3 Psychological: Tearful, Agitated Diagnostic/Tx/Re-eval Clinical Impression(s) from Imaging Studies Abdomen/Pelvis CT 07/10/20 10:02 IMPRESSION: Normal enhanced CT of the abdomen and pelvis. Electronically Signed: Ollie Quintero MD at 13:00 EDT Tel , Service support , Laboratory Data 07/10/20 07/10/20 09:38 09:38 WBC 7.3 RBC 4.82 Hgb 14.5 Hct 43.7 MCV 90.7 MCH 30.1 MCHC 33.2 RDW Std Deviation 43.2 RDW Coeff of [place] 13.1 Plt Count 192 MPV 9.9 Immature Gran % (Auto) 0.300 Neut % (Auto) 54.8 Lymph % (Auto) 34.5 [place] % (Auto) 7.4 Eos % (Auto) 2.6 Baso % (Auto) 0.4 Absolute Neuts (auto) 4.0 Absolute Lymphs (auto) 2.52 Nucleated RBC % 0 Sodium 141 Potassium 3.9 Chloride 110 H Carbon Dioxide 25.0 Anion Gap 6 BUN 14 Creatinine 0.92 Estim Creat Clear Calc 82.18 Est GFR (MDRD) Af Amer 91 Est GFR (MDRD) Non-Af 75 BUN/Creatinine Ratio 15.3 Glucose 101 Calcium 8.7 Total Bilirubin 0.30 AST 23 ALT 26 Alkaline Phosphatase 73 Total Protein 6.8 Albumin 3.6 Globulin 3.2 Albumin/Globulin Ratio 1.1 Lipase 57 L - Medical Decision Making Patient seen and evaluated on arrival for continued pain in the back and sides of her abdomen. Based on her examination I believe this is musculoskeletal although I am not able to reproduce pain in either area. The way to elicit pain is with twisting of the trunk or sitting up. I discussed with her that I thought this was likely musculoskeletal and unrelated to her UTI she was diagnosed yesterday considering she has no CVA tenderness on exam either. Her lab work is all normal. CT of the abdomen pelvis performed with p.o. and IV contrast shows no acute process. It was again discussed with the patient that she likely has musculoskeletal back pain and that she would need to follow-up with her primary care physician and ensure resolution to either physical therapy or referral to specialist. She does not have any red flag signs or symptoms to suggest cauda equina syndrome or infectious etiology. She was given a walker to assist her with walking due to her back pain. She is sent home with Zanaflex due to allergy to Flexeril. He was counseled to continue her antibiotics. She is given return precautions. Patient still for discharge at this time. Impression: 1. lumbar strain 2. Abdominal pain uncertain etiology 3. History of UTI ED Disposition - Plan for ED Patient: Disposition: Home or Assisted Living Instructions: ED Abdominal Pain Unkn Cause Fem, ED LUMBAR SPRAIN/STRAIN Prescriptions: predniSONE tablet 60 mg PO DAILY 4 Days #24 tab Transmission Status: Received by [facility] Tizanidine HCl [Zanaflex] 4 mg PO BID PRN PRN 5 Days #10 tab PRN Reason: pain Transmission Status: Received by [id number] Referrals: Nithya Guevara MD [Primary Care Provider] -
--- NOTE | 2020-07-10 10:02 | CT_ITS ---
STUDY: CT ABDOMEN AND PELVIS WITH CONTRAST REASON FOR EXAM: Female, 30 years old. LOW BACK PAIN. KNOWN CYSTITIS RADIATION DOSAGE (If Supplied By Facility): CTDIvol = ( 16.44 ) mGy, DLP = ( 1302.41 ) mGycm TECHNIQUE: Transaxial images were obtained from the dome of the diaphragm to the symphysis pubis without oral contrast. Oral and amp; IV Gastrografin and amp; 100mL Isovue-370 was administered. Sagittal and coronal images were reconstructed. Individualized dose optimization techniques were used for this CT. COMPARISON: 07/10/2001 30 FINDINGS: Some dependent bibasilar atelectasis. The visualized portions of the heart are within normal limits. Normal liver. Normal gallbladder and extrahepatic biliary system. Normal spleen. Normal pancreas. Normal bilateral adrenal glands. Normal right kidney. Normal left kidney. Normal visualized stomach. Normal small intestine. Normal colon. The appendix is visualized and appears normal. Normal abdominal aorta. Normal inferior vena cava. Normal retroperitoneum. Normal urinary bladder. There is a small umbilical hernia containing fat. Normal osseous structures. CT/Abdomen/Pelvis WITH Contrast IMPRESSION: Normal enhanced CT of the abdomen and pelvis. Electronically Signed: Ollie Quintero MD at 13:00 EDT Tel , Service support ,
[2020-07-10] MEDS: 0.9% Normal Saline 1,000 ML 999 ML IV (10:12)
[2020-07-10] MEDS: Ondansetron 4 MG/2 ML Vial IV (10:12)
[2020-07-10] MEDS: Morphine 4 MG/ML Syringe IV (10:13)
[2020-07-10 10:21] LABS: Absolute Lymphocyte Count 2.52 X10^3/uL (0.83-4.51); Basophil# 0.03 X10^3/uL; Basophil% 0.4 % (0-1); Eosinophil# 0.19 X10^3/uL; Eosinophils% 2.6 % (0-5); Hematocrit 43.7 % (37-47); Hemoglobin 14.5 g/dL (12.0-15.0); Lymphocyte # 2.52 X10^3/ul (4.0); Lymphocyte % 34.5 % (19-41); Mean Corp Hgb Conc 33.2 g/dL (32-36); Mean Corpuscular Hgb 30.1 pg (27.0-32.0); Mean Corpuscular Volume 90.7 fL (81-99); Mean Platelet Vol. 9.9 fl (6.2-12.0); Monocyte# 0.54 X10^3/uL; Monocyte% 7.4 % (0-10); NRBC Flagged by Analyzer 0 % (0-5); Neutrophil % 54.8 % (47-70); Platelet Count 192 K/mm3 (150-450); RBC Distribution Width CV 13.1 % (11.6-14.6); RBC Distribution Width SD 43.2 fl (35.1-43.9); Red Blood Count 4.82 M/mm3 (4.2-5.4); White Blood Count 7.3 K/mm3 (4.4-11.0)
[2020-07-10 10:53] LABS: ALB/GLOB Ratio 1.1 RATIO (0.9-2.4); AST(SGOT) 23 U/L (15-37); Alanine Aminotransfer ALT/SGPT 26 U/L (13-56); Albumin, Serum 3.6 g/dL (3.2-5.0); Alkaline Phosphatase 73 U/L (45-117); Anion Gap 6 (5-15); BUN 14 mg/dL (7-18); BUN/Creat Ratio 15.3 RATIO (10-20); Calcium,Total 8.7 mg/dL (8.5-10.1); Chloride 110 mmol/L (98-107); Creatinine, Serum 0.92 mg/dL (0.55-1.02); EST Glomerular Filtration Rate 75 mL/min (>60); Est Glom Filt Rate - Afr Amer 91 mL/min (>60); Estimated Creatinine Clearance 82.18 ml/min; Globulin 3.2 g/dL (2.2-4.2); Glucose 101 mg/dL (74-106); Lipase 57 U/L (73-393); Potassium 3.9 mmol/L (3.5-5.1); Protein, Total 6.8 g/dL (6.4-8.2); Sodium Level 141 mmol/L (136-145)
[2020-07-10 11:20] VITALS: PULSE 65; RESP 16; O2SAT 98
[2020-07-10] MEDS: Ketorolac 15 MG/ML Vial IV (12:55)
[2020-07-10] MEDS: predniSONE 20 MG Tablet 60 MG PO (13:48)
== END 2020-07-10 13:53 | disposition home or self-care (01) ==
PROVIDERS: Emergency Provider Student in an Organized Health Care Education/Training Program; PCP Internal Medicine
DX: S39.012A Strain of muscle, fascia and tendon of lower back, initial encounter (principal); X58.XXXA Exposure to other specified factors, initial encounter; N30.90 Cystitis, unspecified without hematuria; R10.9 Unspecified abdominal pain; R11.10 Vomiting, unspecified; E66.9 Obesity, unspecified; F17.200 Nicotine dependence, unspecified, uncomplicated; Z87.440 Personal history of urinary (tract) infections
CPT/HCPCS: 74176; 74177; 80048; 80053; 83690; 84703; 85025; 87077; 87086; 87088; 87186; 96361; 96374; 96375; 99283; 99285; J7030; Q9967; A4216; J2405

== ENCOUNTER 2020-07-26 16:06 | Outpatient (RCR) | payer MEDICAID, SELFPAY ==
[2020-07-16 14:45] VITALS: BMI 34.7
--- NOTE | 2020-07-26 18:38 | HP.PTEVAL_ITS ---
Patient's Visit Information CAYDEN WAITE is a 30 year old F referred to Physical Therapy by IFRAH Groves with a diagnosis of Lumbago with siciatica R side. Date of Evaluation: 07/26/20 Physical Therapist: JORGE Stokes - Visit Plan Frequency: 2x /Week Duration: 4 Weeks Plan: 2X/ week for 4 weeks for centralization of symptoms using extension principle and then progressing to postural exercises, core stability, LE strengthening especially hip extension with HEP and modalities as needed. - Subjective Pt her incident 3 weeks ago she had some pain here and there but she thought it was normal for her. When she had her son, something happened where her one leg just dragged and he was 9 pounds and could have been sitting on a nerve. She prescriped IBPROF. She was told to go to PT but she was too busy. 5 years later and a baby later.... then 3 weeks ago out of nowhere she was [facility] and she got some bad pain in her back. She went to Work and could not walk....she went to the Hospital and it kept getting worse. When she was laying on her back she could not roll to her side. She was given narcotics and antibiotic for UTI. She could not do anything for 5 days and that was rough with a 4 month old baby. She could walk but could not transfer. Sitting on the toilet did something crazy to her cause she had pain shot up the side of her and through her stomach... could not move and the squad was called and they took her to the ER. She could not sleep cause laying flat hurt. They took x-rays but she does not know the result. She was told she needs an MRI but needs PT first. She can sit to stand... Now her pain is more isolated on her R side more than the L. SHe has to squat cause she can not bend her trunk. She is having trouble sleeping when her meds wear off and she is in pain and stuck she slept in one position for a long time. She can not sit long, lay down long, or walk long. She has no N&T and no leg pain. The pain does wrap arund into her groin and into lower thoracic. 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 SItting to feed the baby, changing the baby, or lifting the baby increases her pain. - Pain back pain Pain Intensity (Out of 10): 4 Pain Intensity Range: 7 - Objective Gait: Walks with decrease stance time on the R and no trunk rotation. Trunk AROM: flexion 25%, ext 10%, SB L 50%, SB R 75%. Pt is able to walk on heels and toes. -SLR B. LE MMT: R hip abd 4-/5 and L 4+/5, B hip flex 4-/5, B knee ext 4/5 and B knee flex 4-/5. Prone to SANA X 10..... makes it hurt along the spine. 2 X 10 additional and pt felt pain higher around L1 along the spine and almost a pinching off to the L paraspinal. + SLUMP test B for pain on the R side. X10 Press ups pt had increase spine pain.... E0stim and MH in prone with pillow under the abdomin X 15 min to decrease pain and increase circulation. Posture: pt is able to sit with upright posture upon cueing and her pain is not as intense with upright posture - Goals Goal 1:: I HEP Goal Time Frame: 4-6 Weeks Goal 2:: Sit with upright posture during treatment sessions with no pain Goal Time Frame: 4-6 Weeks Goal 3:: Increase trunk AROM by 25% each plane (at time of eval: Trunk AROM: flexion 25%, ext 10%, SB L 50%, SB R 75%). Goal Time Frame: 4-6 Weeks Goal 4:: Be able to lift at work without having increase pain Goal Time Frame: 4-6 Weeks Goal 5:: Be able to transition in bed and from sitting to standing without having any pain Goal Time Frame: 4-6 Weeks - Rehabilitation Potential Rehabilitation Potential: Good - Anticipated Interventions Patient/Client Instruction: Educate patient on: Condition For the Purpose of:: To decrease pain, To increase ROM, To improve nutrient delivery to tissue, To improve muscle performance and motor function, To improve ability to perform ADL's, To increase tolerance to activity/condition/position, To improve performance and independence with ADL's, To improve ability of physical actions for home/community/work/leisure, To improve gait and locomotor functions, To improve health of tissue, To decrease soft tissue restriction, To increase flexibility/ROM Therapeutic Exercise to Include: Strength training, Body mechanics, Postural training, Flexibilty training, Active ROM, Dynamic Lumbar Stabilization, Jaxon Exercises For the Purpose of:: To decrease pain, To increase ROM, To improve nutrient delivery to tissue, To improve muscle performance and motor function, To improve ability to perform ADL's, To increase tolerance to activity/condition/position, To improve performance and independence with ADL's, To decrease level of supervision to perform tasks, To improve ability of physical actions for home/community/work/leisure, To improve health of tissue, To decrease soft tissue restriction, To increase flexibility/ROM IF ES: Yes Thermo therapy (hot pack): Yes Ultrasound (thermal/non thermal): Yes For the Purpose of:: To decrease pain, To improve nutrient delivery to tissue, To improve muscle performance and motor function Thank you for the opportunity to evaluate your patient. For Medicare and Medicare HMO plans, please review the plan of care and approve it. It will need to be FAXED BACK to us at [phone] for Medicare purposes. For Medicare only, by signing this I certify the plan of care. Please let me know if there are questions or concerns regarding this plan of care. Physician Signature: Date:
--- NOTE | 2020-10-11 09:51 | HP.PT.NRP ---
CAYDEN WAITE was seen in my office for initial evaluation on 07/26/20. The following Plan of Care was established for this patient: Initial Frequency: 2x /Week Initial Duration: 4 Weeks Patient/Client Instruction: Educate patient on: Condition For the Purpose of:: To decrease pain, To increase ROM, To improve nutrient delivery to tissue, To improve muscle performance and motor function, To improve ability to perform ADL's, To increase tolerance to activity/condition/position, To improve performance and independence with ADL's, To improve ability of physical actions for home/community/work/leisure, To improve gait and locomotor functions, To improve health of tissue, To decrease soft tissue restriction, To increase flexibility/ROM Therapeutic Exercise to Include: Strength training, Body mechanics, Postural training, Flexibilty training, Active ROM, Dynamic Lumbar Stabilization, Jaxon Exercises For the Purpose of:: To decrease pain, To increase ROM, To improve nutrient delivery to tissue, To improve muscle performance and motor function, To improve ability to perform ADL's, To increase tolerance to activity/condition/position, To improve performance and independence with ADL's, To decrease level of supervision to perform tasks, To improve ability of physical actions for home/community/work/leisure, To improve health of tissue, To decrease soft tissue restriction, To increase flexibility/ROM IF ES: Yes Thermo therapy (hot pack): Yes Ultrasound (thermal/non thermal): Yes For the Purpose of:: To decrease pain, To improve nutrient delivery to tissue, To improve muscle performance and motor function This patient was last seen in our office 07/26/20. Pertinent comments regarding their Physical therapy will appear below: [facility]. Pt has not been seen since her initial eval on 07-26-2020. At this point I will be discontinuing this patient from physical therapy. I would be happy to see this patient again in the future if found appropriate by the physician. Thank you! Kelsey Metz, MPT
== END 2020-07-26 19:00 | disposition home or self-care (01) ==
LOC: PT 16:06
PROVIDERS: PCP Internal Medicine; Referring Provider Nurse Practitioner Family; Visit Provider Nurse Practitioner Family
DX: M54.41 Lumbago with sciatica, right side (principal)
CPT/HCPCS: 97014; 97162; G0283

== ENCOUNTER 2020-11-18 21:22 | Emergency (ER) | payer MEDICAID, SELFPAY ==
[2020-07-16 14:45] VITALS: BMI 34.7
[2020-11-18 21:23] VITALS: BP 118/73; PULSE 137; RESP 16; TEMP 35.8; O2SAT 99; BMI 33.7
--- NOTE | 2020-11-18 21:46 | US_ITS ---
STUDY: SECOND AND THIRD TRIMESTER OBSTETRICAL ULTRASOUND - LIMITED REASON FOR EXAM: Female, 30 years old POSITIVE TEST 5 DAYS AGO . CRAMPING NO BLEEDING LMP: Unknown. PRIOR ULTRASOUND: None. TECHNIQUE: Transabdominal TECHNICAL QUALITY: Adequate. FINDINGS: There is a single intrauterine fetus. The fetus is in a breech presentation. There is demonstrated cardiac activity with a heart rate of 155 bpm. There is a normal amniotic fluid volume. The largest amniotic fluid pocket measures 3.9 cm. The placenta is anterior in location and is not low lying. There are Grade 0 placental changes. The cervix measures 4.3 cm in length. BIOMETRY: BPD: 4 cm: 18 weeks, 0 days HC: 14.8 cm: 17 weeks, 6 days AC: 12.7 cm: 18 weeks, 2 days FL: 2.4 cm: 17 weeks, 1 days Age by LMP: 18 weeks, 2 days. [place] by LMP: 04/19/2021. age by current US: 17 weeks, 5 days. [place] by current US: 04/23/2021. Estimated weight: 211 grams, +/- 32 grams, 20 percentile. US/OB Limited With Biometrics IMPRESSION: Single live early intrauterine as detailed above, breech presentation Electronically Signed: Davey Oviedo DO at 23:48 EST Tel , Service support ,
[2020-11-18] MEDS: Acetaminophen 500 MG Tablet 1000 MG PO (22:02)
[2020-11-18] MEDS: 0.9% Normal Saline 1,000 ML 1000 ML IV (22:04)
[2020-11-18 22:08] LABS: Mucous, Urine 0 SEEN /hpf (<or=2+); Red Blood Cells-Urine 0 SEEN /hpf (0-5); White Blood Cells 0 SEEN /hpf (0-5)
[2020-11-18 22:09] LABS: Color, Urine Yellow (Yellow); Glucose, Dipstick Normal (Normal); Ketone-Dipstick 5 mg/dl (Negative); Leukocyte Esterase-Dipstick Negative /ul (Negative); Nitrite-Dipstick Negative (Negative); Occult Blood-Urine Negative /ul (Negative); Protein-Dipstick 15 mg/dl (Negative); Specific Gravity, Urine 1.025 (1.002-1.030); Urine Bilirubin Dipstick Negative (Negative); Urine Clarity Sl. Cloudy (Clear); Urine Urobilinogen 1 mg/dl (Normal)
--- NOTE | 2020-11-18 22:15 | ED.VISSUMM ---
- ER Visit Summary Date of Service: 11/18/20 Chief Complaint: Abdominal pain History of Present Illness: The patient is a [address] 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 She is a G7, P4 who had a positive test 2 days ago. States that she is having lower abdominal pain that began 2 days ago as well. It is a constant cramping pain that worsened today. 7 out of 10 in severity currently and at worst. Is worsened by standing up and relieved by remaining still. She denies any associated nausea, vomiting, or diarrhea. Her last bowel was today. No mono medic easier. No dysuria or frequency. Patient reports that she has a history of PCOS and that her last period was a long time ago. She denies any vaginal bleeding or discharge. She does state this is similar to when she had a miscarriage in the past and she is required 2 D&Cs. Physical Examination: Vitals: Stable. Afebrile. General: Well-nourished and well-developed. Head: Normocephalic atraumatic. Neck: Supple, no lymphadenopathy. No JVD. Nontender. Cardiovascular: Tachycardic regular rhythm. No murmurs. Respiratory: No respiratory distress. Clear to auscultation bilaterally. Abdominal: Soft, nontender, nondistended, normal bowel sounds. No guarding, rebound, or peritoneal signs. Back: Nontender. Extremities: Nontender, no edema. Skin: Normal color, no rash. Neurologic: Alert and oriented ?3. Cranial nerves II through XII are intact. Normal strength and sensation. Psych: Normal affect. Test Results: UA shows 1+ bacteria and ketones. Quantitative hCG is 11,161. CBC is normal. Clinical Impression(s) from Imaging Studies Obstetrics Ultrasound 11/18/20 21:46 IMPRESSION: Single live early intrauterine as detailed above, breech presentation Electronically Signed: Davey Oviedo DO at 23:48 EST Tel , Service support , Emergency Department Course and Treatment: Patient had an IV placed. She is given a liter of normal saline. She was given Tylenol for pain. She is resting comfortably. Patient was given a dose of Keflex and her urine was sent for culture. 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 She will be placed on Keflex at home. Return to the emergency department for any worsening symptoms. Disposition: To home in improved and stable condition. Impression: 1. Second trimester . 2. Bacteriuria. This note was generated with [employer] software. It may contain incorrect words, spelling, and punctuation that were not noted in review of the chart prior to signing ED Disposition - Plan for ED Patient: Instructions: ED Pelvic Pain Preg UKO 2 or 3 Tri Prescriptions: Cephalexin [Keflex] 500 mg PO Q12 #14 cap Prescription Printed Referrals: Nithya Guevara MD [Primary Care Provider] - Additional Instructions: Follow up with your OB at [facility] in 1-2 days if not improving.
[2020-11-18 22:17] LABS: Absolute Lymphocyte Count 2.96 X10^3/uL (0.83-4.51); Absolute Neutrophil Count 6.1 X10^3/uL (2.0-7.7); Basophil# 0.04 X10^3/uL; Basophil% 0.4 % (0-1); Eosinophil# 0.28 X10^3/uL; Eosinophils% 2.8 % (0-5); Hematocrit 38.2 % (37-47); Hemoglobin 12.9 g/dL (12.0-15.0); Lymphocyte # 2.96 X10^3/ul (4.0); Lymphocyte % 29.8 % (19-41); Mean Corp Hgb Conc 33.8 g/dL (32-36); Mean Corpuscular Hgb 30.5 pg (27.0-32.0); Mean Corpuscular Volume 90.3 fL (81-99); Mean Platelet Vol. 9.6 fl (6.2-12.0); Monocyte# 0.54 X10^3/uL; Monocyte% 5.4 % (0-10); NRBC Flagged by Analyzer 0 % (0-5); Neutrophil # 6.05 X10^3/uL (2.7-7.7); Neutrophil % 61.1 % (47-70); Platelet Count 217 K/mm3 (150-450); RBC Distribution Width SD 42.8 fl (35.1-43.9); Red Blood Count 4.23 M/mm3 (4.2-5.4); White Blood Count 9.9 K/mm3 (4.4-11.0)
[2020-11-18 22:19] LABS: Bacteria 1+ /hpf (None Seen); Squamous Epithelial Cells - UA 0-5 SEEN /hpf (5-10)
[2020-11-18 23:13] LABS: hCG Titer Quant., Serum 11161 mIU/mL (1-3)
[2020-11-19] MEDS: Cephalexin 250 MG Capsule 500 MG PO (00:06)
[2020-11-19 00:10] VITALS: BP 134/74
== END 2020-11-19 00:11 | disposition home or self-care (01) ==
LOC: ED 22:34
PROVIDERS: Emergency Provider Emergency Medicine; PCP Internal Medicine
DX: O26.892 Other specified pregnancy related conditions, second trimester (principal); R82.71 Bacteriuria; R10.30 Lower abdominal pain, unspecified; E28.2 Polycystic ovarian syndrome; O99.332 Smoking (tobacco) complicating pregnancy, second trimester; Z3A.00 Weeks of gestation of pregnancy not specified
CPT/HCPCS: 76816; 81001; 84702; 85025; 87077; 87086; 87088; 87186; 96360; 96361; 99284; J7030; A4216

== ENCOUNTER → 2021-04-29 | Outpatient (CLI) | payer MEDICAID, SELFPAY ==
[2021-04-29 17:32] LABS: Bacteria 0 SEEN /hpf (None Seen); Mucous, Urine 0 SEEN /hpf (<or=2+)
[2021-04-29 17:39] LABS: Color, Urine Yellow (Yellow); Glucose, Dipstick Normal (Normal); Ketone-Dipstick Negative (Negative); Leukocyte Esterase-Dipstick 25 /ul (Negative); Nitrite-Dipstick Negative (Negative); Occult Blood-Urine 50 /ul (Negative); Protein-Dipstick Negative (Negative); Specific Gravity, Urine 1.015 (1.002-1.030); Urine Bilirubin Dipstick Negative (Negative); Urine Clarity Clear (Clear); Urine Urobilinogen Normal (Normal)
[2021-04-29 17:45] LABS: Red Blood Cells-Urine 0-5 SEEN /hpf (0-5); Squamous Epithelial Cells - UA 0-5 SEEN /hpf (5-10); White Blood Cells 0-5 SEEN /hpf (0-5)
== END | disposition home or self-care (01) ==
LOC: LABSPEC 17:31
PROVIDERS: PCP Internal Medicine; Visit Provider Physician Assistant
DX: N39.0 Urinary tract infection, site not specified (principal)
CPT/HCPCS: 81001; 87086; 87088

== ENCOUNTER → 2021-05-06 | Outpatient (CLI) | payer MEDICAID, SELFPAY ==
[2021-05-06 10:35] LABS: Mucous, Urine 0 SEEN /hpf (<or=2+)
[2021-05-06 10:46] LABS: Color, Urine Straw (Yellow); Glucose, Dipstick Normal (Normal); Ketone-Dipstick 5 mg/dl (Negative); Leukocyte Esterase-Dipstick 500 /ul (Negative); Nitrite-Dipstick Positive (Negative); Occult Blood-Urine 10 /ul (Negative); Protein-Dipstick Negative (Negative); Specific Gravity, Urine 1.015 (1.002-1.030); Urine Bilirubin Dipstick Negative (Negative); Urine Clarity Sl. Cloudy (Clear); Urine Urobilinogen Normal (Normal)
[2021-05-06 10:59] LABS: Red Blood Cells-Urine 0-5 SEEN /hpf (0-5); White Blood Cells >100 SEEN /hpf (0-5)
[2021-05-06 11:00] LABS: Bacteria 4+ /hpf (None Seen); Renal Epithelial Cells 0-5 SEEN /hpf (0-5); Squamous Epithelial Cells - UA 0-5 SEEN /hpf (5-10)
== END | disposition home or self-care (01) ==
LOC: LABSPEC 10:32
PROVIDERS: PCP Internal Medicine; Referring Provider Physician Assistant; Visit Provider Physician Assistant
DX: N39.0 Urinary tract infection, site not specified (principal)
CPT/HCPCS: 81001; 87086; 87088; 87186

== ENCOUNTER → 2021-06-13 | Outpatient (CLI) | payer MEDICAID, SELFPAY ==
[2021-06-13 10:02] LABS: Mucous, Urine 0 SEEN /hpf (<or=2+)
[2021-06-13 10:11] LABS: Color, Urine Yellow (Yellow); Glucose, Dipstick Normal (Normal); Ketone-Dipstick Negative (Negative); Leukocyte Esterase-Dipstick 500 /ul (Negative); Nitrite-Dipstick Positive (Negative); Occult Blood-Urine 25 /ul (Negative); Protein-Dipstick 30 mg/dl (Negative); Urine Bilirubin Dipstick Negative (Negative); Urine Clarity Cloudy (Clear); Urine Urobilinogen Normal (Normal)
[2021-06-13 10:19] LABS: Bacteria 3+ /hpf (None Seen); Red Blood Cells-Urine 0-5 SEEN /hpf (0-5); Squamous Epithelial Cells - UA 0-5 SEEN /hpf (5-10); White Blood Cells 25-50 SEEN /hpf (0-5)
== END | disposition home or self-care (01) ==
LOC: LABSPEC 09:56
PROVIDERS: PCP Internal Medicine; Referring Provider Physician Assistant Surgical; Visit Provider Physician Assistant Surgical
DX: R30.0 Dysuria (principal)
CPT/HCPCS: 81001; 87077; 87086; 87088; 87186

== ENCOUNTER → 2021-06-24 08:34 | Outpatient (CLI) | payer MEDICAID, SELFPAY ==
[2021-06-24 08:36] LABS: Bacteria 0 SEEN /hpf (None Seen); Mucous, Urine 0 SEEN /hpf (<or=2+); Red Blood Cells-Urine 0 SEEN /hpf (0-5); White Blood Cells 0 SEEN /hpf (0-5)
[2021-06-24 12:29] LABS: Color, Urine Yellow (Yellow); Glucose, Dipstick Normal (Normal); Ketone-Dipstick 5 mg/dl (Negative); Leukocyte Esterase-Dipstick Negative /ul (Negative); Nitrite-Dipstick Negative (Negative); Occult Blood-Urine Negative /ul (Negative); Protein-Dipstick Negative (Negative); Urine Bilirubin Dipstick Negative (Negative); Urine Clarity Sl. Cloudy (Clear); Urine Urobilinogen Normal (Normal)
[2021-06-24 13:14] LABS: Squamous Epithelial Cells - UA 0-5 SEEN /hpf (5-10)
== END ==
PROVIDERS: PCP Internal Medicine; Referring Provider Internal Medicine; Visit Provider Internal Medicine
DX: N39.0 Urinary tract infection, site not specified (principal)
CPT/HCPCS: 81001; 87086

== ENCOUNTER 2021-10-05 15:30 | Outpatient (RCR) | payer MEDICAID, SELFPAY ==
--- NOTE | 2021-09-16 09:30 | HP.PTEVAL ---
Patient's Visit Information CAYDEN WAITE is a 31 year old F referred to Physical Therapy by Heriberto Walker NP-C with a diagnosis of RADICULOPATHY,LUMBAR. Date of Evaluation: 09/15/21 Physical Therapist: Jason Baig, PT, Cert MDT, OCS - Visit Plan Frequency: 2x /Week Duration: 4 Weeks Plan: PT INTERVETIONS JULIO EX'S, POSTURE/BODAY MECHANICS WITH MODIFICATION, PROGRESS TO DLS WHEN MOTION IS IMPROVED AND MODALTIES ,MANUAL THERAPY - Subjective This 31 y/o female presents to physical therapy with lumbar pain with sciatica with weakness. Patient initially back pain last year . Tried PT pain got some better ,patient was unable to get OOB 3 days. Then this year lumbar Nov 2 insidious onset with mechanism of injury. Patient 2as bed ridden for 8 days unable to get OOB . Aggravating sitting ,very panful driving ,bending ,lifting. Alleviating factors rest prone. Seen DR muscle relaxers from last year but get adverse reaction heart issues. Coughing/sneezing+. Bowel/bladder -. Symmetrical lumbar pain. Pain really affects ADL's and function with housework tasks. Patient symptoms affects QOL. SOCIAL: Fiancee 4 childern. VOCATION: unemployed - Pain Bilateral Back Pain Intensity (Out of 10): 8 Pain Intensity Range: 10 - Objective POSTURE: mild forward posture. NEURO: reflexes L3-4,L4-5,L5-S1 1/3 ,+ ANR. PALAPTION: unremarkable. SYMMTRIES: align. MMT: 3+/4 QUAD/HAMS/HIP with + ANR ,ankle 4-5/. LUMBAR ROM: flexion severe loss, extension severe loss deviates to left ,side glides mod oss - Special Tests L/S Slump test left side: Negative L/S Slump test right side: Negative L/S Left Straight Leg Raise: Negative L/S Right Straight Leg Raise: Negative Lumbar Standing: Flexion - Mechanical Response: No effect Lumbar Standing: Flexion - Symptoms During Testing: Increases Lumbar Standing: Flexion - Symptoms After Testing: Worse Lumbar Standing: Extension - Mechanical Response: No effect Lumbar Standing: Extension - Symptoms During Testing: Increases Lumbar Standing: Extension - Symptoms After Testing: Worse Lumbar Standing: Right Side Glides - Mechanical Response: No effect Lumbar Standing: Right Side [place] - Symptoms During Testing: Increases Lumbar Standing: Right Side [place] - Symptoms After Testing: Worse Lumbar Standing: Left Side [place] - Mechanical Response: No effect Lumbar Standing: Left Side [place] - Symptoms During Testing: Increases Lumbar Standing: Left Side [place] - Symptoms After Testing: Worse Lumbar Lying: Flexion - Mechanical Response: No effect Lumbar Lying: Flexion - Symptoms During Testing: Increases Lumbar Lying: Flexion - Symptoms After Testing: Worse Lumbar Lying: Extension - Mechanical Response: Increases motion Lumbar Lying: Extension - Symptoms During Testing: Decreases Lumbar Lying: Extension - Symptoms After Testing: Better - Balance/Special Test Scores Oswestry Low Back Score: 38 - Goals Goal 1:: I with HEP for back pain Goal Time Frame: 4-6 Weeks Goal 2:: Patient improve posture /body mechanics 80% of the time Goal Time Frame: 4-6 Weeks Goal 3:: Patient demonstrate 50% improvement with decrease lumbar pain with radicular symptoms for function . Goal Time Frame: 4-6 Weeks Goal 4:: Patient to improve lumbar ROM for function of recovery Goal Time Frame: 4-6 Weeks Goal 5:: Patient improve ANR and increase strength BLE to 4/5 improve gait. Goal Time Frame: 4-6 Weeks Goal 6:: Patient to improve back owestry score by 5 points or > to improve QOL and function Goal Time Frame: 4-6 Weeks - Rehabilitation Potential Physical Therapy Diagnosis: This patient has derangement above knee with severe pain ,poor lumbar ROM ,weakness in legs,+ ANR ,worse with flexion ,better with extension and correction of posture thus benefit from skilled PT Rehabilitation Potential: Good - Anticipated Interventions Patient/Client Instruction: Educate patient on: Condition, Plan of Care For the Purpose of:: To decrease pain, To increase ROM, To improve muscle performance and motor function, To improve ability to perform ADL's, To increase tolerance to activity/condition/position, To improve performance and independence with ADL's, To improve ability of physical actions for home/community/work/leisure, To improve health of tissue, To decrease soft tissue restriction, To increase flexibility/ROM, To reduce risk of recurrence, To prevent re-injury Therapeutic Exercise to Include: Strength training, Body mechanics, Postural training, Flexibilty training, Active ROM, Dynamic Lumbar Stabilization, Julio Exercises For the Purpose of:: To decrease pain, To increase ROM, To improve muscle performance and motor function, To improve ability to perform ADL's, To increase tolerance to activity/condition/position, To improve performance and independence with ADL's, To improve ability of physical actions for home/community/work/leisure, To improve health of tissue, To decrease soft tissue restriction, To increase flexibility/ROM, To reduce risk of recurrence, To improve self management, To prevent re-injury, To improve tolerance to ADL's Manual Therapy Techniques to Include: Mobilization Comment: LUMBAR For the Purpose of:: To decrease pain, To increase ROM TENS: Yes IF ES: Yes Cryotherapy (ice pack, ice massage): Yes Ultrasound (thermal/non thermal): Yes For the Purpose of:: To decrease pain, To increase ROM, To improve nutrient delivery to tissue, To increase oxygenation perfusion, To improve health of tissue, To decrease soft tissue restriction Thank you for the opportunity to evaluate your patient. For Medicare and Medicare HMO plans, please review the plan of care and approve it. It will need to be FAXED BACK to us at [phone] for Medicare purposes. For Medicare only, by signing this I certify the plan of care. Please let me know if there are questions or concerns regarding this plan of care. Physician Signature: Date:
--- NOTE | 2021-12-21 09:40 | HP.PT.NRP ---
CAYDEN WAITE was seen in my office for initial evaluation on 09/15/21. The following Plan of Care was established for this patient: Initial Frequency: 2x /Week Initial Duration: 4 Weeks Patient/Client Instruction: Educate patient on: Condition, Plan of Care For the Purpose of:: To decrease pain, To increase ROM, To improve muscle performance and motor function, To improve ability to perform ADL's, To increase tolerance to activity/condition/position, To improve performance and independence with ADL's, To improve ability of physical actions for home/community/work/leisure, To improve health of tissue, To decrease soft tissue restriction, To increase flexibility/ROM, To reduce risk of recurrence, To prevent re-injury Therapeutic Exercise to Include: Strength training, Body mechanics, Postural training, Flexibilty training, Active ROM, Dynamic Lumbar Stabilization, Jaxon Exercises For the Purpose of:: To decrease pain, To increase ROM, To improve muscle performance and motor function, To improve ability to perform ADL's, To increase tolerance to activity/condition/position, To improve performance and independence with ADL's, To improve ability of physical actions for home/community/work/leisure, To improve health of tissue, To decrease soft tissue restriction, To increase flexibility/ROM, To reduce risk of recurrence, To improve self management, To prevent re-injury, To improve tolerance to ADL's Manual Therapy Techniques to Include: Mobilization Comment: LUMBAR For the Purpose of:: To decrease pain, To increase ROM TENS: Yes IF ES: Yes Cryotherapy (ice pack, ice massage): Yes Ultrasound (thermal/non thermal): Yes For the Purpose of:: To decrease pain, To increase ROM, To improve nutrient delivery to tissue, To increase oxygenation perfusion, To improve health of tissue, To decrease soft tissue restriction This patient was last seen in our office . Pertinent comments regarding their Physical therapy will appear below: Patient was seen for lumbar pain for PT HEP ,thus d/c At this point I will be discontinuing this patient from physical therapy. I would be happy to see this patient again in the future if found appropriate by the physician. Thank you! Jason Baig, PT, Cert MDT, OCS Balance/Gait/Functional tests - Balance/Special Test Scores Oswestry Low Back Score: 1
== END 2021-10-05 19:00 | disposition home or self-care (01) ==
LOC: PT 15:30
PROVIDERS: PCP Internal Medicine; Referring Provider Nurse Practitioner Family; Visit Provider Nurse Practitioner Family
DX: M54.16 Radiculopathy, lumbar region (principal)
CPT/HCPCS: 97014; 97110; 97162; G0283

== ENCOUNTER 2021-11-14 10:19 | Outpatient (CLI) | payer MEDICAID, SELFPAY ==
[2021-11-14 10:27] LABS: Mucous, Urine 0 SEEN /hpf (<or=2+)
[2021-11-14 10:34] LABS: Glucose, Dipstick Normal (Normal); Ketone-Dipstick Negative (Negative); Leukocyte Esterase-Dipstick 500 /ul (Negative); Nitrite-Dipstick Positive (Negative); Occult Blood-Urine 250 /ul (Negative); Protein-Dipstick 100 mg/dl (Negative); Specific Gravity, Urine 1.025 (1.002-1.030); Urine Clarity Turbid (Clear); Urine Urobilinogen 4 mg/dl (Normal)
[2021-11-14 10:41] LABS: Urine Bilirubin Dipstick 3 mg/dL (Negative)
[2021-11-14 10:42] LABS: Color, Urine Orange (Yellow)
[2021-11-14 10:51] LABS: Red Blood Cells-Urine 10-25 SEEN /hpf (0-5); Squamous Epithelial Cells - UA 5-10 SEEN /hpf (5-10); White Blood Cells >100 SEEN /hpf (0-5)
[2021-11-14 10:52] LABS: Transitional Epithelial - Ur 0-5 SEEN /hpf (0-5)
[2021-11-14 10:53] LABS: Bacteria 1+ /hpf (None Seen)
== END 2021-11-14 23:59 | disposition short-term general hospital (02) ==
LOC: LABSPEC 10:20
PROVIDERS: PCP Internal Medicine; Visit Provider Physician Assistant Surgical
DX: R30.0 Dysuria (principal)
CPT/HCPCS: 81001; 87077; 87086; 87088; 87186

== ENCOUNTER → 2022-06-15 | Outpatient (CLI) | payer MEDICAID, SELFPAY | END | disposition home or self-care (01) | LOC: LABSPEC 08:50 | PROVIDERS: PCP Internal Medicine; Referring Provider Physician Assistant; Visit Provider Physician Assistant | DX: R05.9 Cough, unspecified (principal); R52 Pain, unspecified; Z20.822 Contact with and (suspected) exposure to COVID-19 | CPT/HCPCS: 87635; U0003; U0005 ==

== ENCOUNTER 2023-01-20 20:36 | Emergency (ER) | payer MEDICAID, SELFPAY ==
[2023-01-20 20:37] VITALS: BP 136/79; PULSE 112; RESP 18; TEMP 36.7; O2SAT 100; BMI 16.2
[2023-01-20 21:20] VITALS: O2SAT 1
--- NOTE | 2023-01-20 22:30 | ED.VIS.DENTA ---
HPI History of Present Illness Chief Complaint: Dental Narrative Narrative: 32-year-old female with right-sided jaw pain. She states that she had a bad tooth. She was initially supposed to see her dentist but it was felt that she needed an lip cutter and scorer. Her insurance tried to work with her to find a local lip cutter and scorer but they could not find one. The patient continued to have pain in the tooth and was placed on clindamycin. She is currently 27 weeks . She has not any complications. Patient reports that her insurance eventually was able to talk her dentist into working on her tooth. She states he initially removed the tooth and she was taking pictures of the tooth due to pain and thought she saw a partial tooth left in the area that was removed. She sent the picture to the dentist and the dentist said it looks like exposed jawbone. This could be infected. She went back to the office today and states that part of his office was closed. He did not have all of his stools. He could not use the drill she said. She is essentially describing him rongeuring the bone down where the tooth was. He then put a suture in place and covered this area on the gumline. She does not have any facial swelling. She does not have any tongue swelling no sublingual edema. No trouble swallowing or breathing. She does report that her jaw hurts. She wants to have this reevaluated and she is concerned for infection. He states her dentist did not put her on anything. She also reports that the dentist did this without any lidocaine. She is complaining of the jaw pain is fairly severe. She states that during the procedure she noted it started radiating into her neck. She is the posterior neck. [facility] Medical History Difficulty balancing Dysuria Gave to child recently Heart disease Hemorrhoids Limb weakness Lumbar radiculopathy neck/back pain PCOS (polycystic ovarian syndrome) Severe headache UTI (urinary tract infection) Vaginal discharge Home Medications NK 08/03/22 [History Last Taken Unknown] Allergy/AdvReac Type Severity Reaction Status Date / Time ciprofloxacin Allergy Unknown unknown Verified 01/20/23 20:40 cyclobenzaprine Allergy Swelling Verified 01/20/23 20:40 [From Flexeril] Penicillins Allergy Swelling Verified 01/20/23 20:40 Family History Father Cancer Mother Afib Fibromyalgia Surgical History History of D&C History of radiofrequency ablation (RFA) procedure for cardiac arrhythmia Social History Smoking Status: Current some day smoker tobacco type: cigarettes Tobacco: How many years used: 2 second hand exposure: No alcohol intake: never substance use type: does not use what type of physical activity do you participate in: none ROS ROS ED Constitutional Constitutional ED: Denies chills, fever(s) or sweats Eyes Eyes: Denies blurry vision or change in vision ENT ENT ED: Reports other Details: Right-sided dental pain ; Denies ear pain or sore throat Cardiovascular Cardiovascular: Denies chest pain, palpitations or racing heartbeat Respiratory/Chest Respiratory/Chest: Denies cough, dyspnea or sputum Gastrointestinal Gastrointestinal: Denies abdominal pain, constipation, diarrhea, nausea or vomiting Genitourinary Genitourinary ED: Denies dysuria, hematuria or urinary frequency Musculoskeletal Musculoskeletal: Denies arthralgias, myalgias or neck pain Integumentary Denies abscess, Abrasions or rash Neurologic Neurologic: Denies headache(s), paresthesias or weakness Psychiatric Psychiatric: Denies anxiety, depression, suicidal ideation or suicidal thoughts Endocrine Endocrinology: Denies polydipsia or polyuria EXAM Physical Exam Const Vital Signs: 01/20/23 20:37 01/20/23 21:20 Temperature 98.0 F Temperature Source Temporal Pulse Rate 112 H Respiratory Rate 18 Blood Pressure 136/79 H Blood Pressure Mean 98 Pulse Ox 100 1 Oxygen Delivery Method Room Air Room Air Positive well nourished General Appearance ED: NAD HEENT HEENT Narrative: The area of tooth #29 that contains a suture over the gumline. There is no drainage. There is no redness or edema. It is tender. No noted facial swelling on exam. No trouble swallowing or breathing. No submental edema Mouth ED: Yes oral and palatal mucosa normal, Yes lips normal, Yes tongue normal and Yes salivary gland normal Mouth: oral and palatal mucosa normal, lips normal, tongue normal and salivary gland normal Eyes PERRL and EOMs intact bilaterally Resp normal respiratory effort Cardio regular rate and regular rhythm Neuro oriented x3 and CN's II-XII intact bilaterally Psych Mood & Affect: anxious Skin no rashes or lesions noted MDM MDM MDM Narrative Medical decision making narrative: Patient presenting with jaw pain after dental extraction and subsequent procedure which sounds like he rongeured some of the bone and covered cover the area with a piece of the gumline with a suture. It does not look grossly infected. I understand that it is probably painful. Sometime during the procedure her neck started to hurt but this is not associated with the jaw. This was explained to her. She states that most dentist will not take her insurance. I recommended that she does follow-up with her dentist but I also gave her referral to Dr. Chen. She is penicillin allergic and she is already been on clindamycin prior to the procedure. This area is not grossly infected. I did recommend her that we hold antibiotics for now because it does not look grossly infected. She has not understanding of this. I do not believe any imaging is can help. I do not believe blood work would help. I explained this to the patient. Patient does appear to be a little anxious today about her concern with the possible infection. I tried to reassure her that her wound looks good. I did assessment counselor her on return precautions. She is discharged home in stable condition. Impression: 1. Postop wound check Discharge Plan Triage Chief Complaint: Dental ED Provider: Raghav Cedeño Dx/Rx/DC Orders Instructions: ED Dental Pain Prescriptions: No Action NK Primary Care Provider: Nithya Guevara Referrals: Nithya Guevara MD [Primary Care Provider] - Romero Chen DDS [Med Staff - Active Staff] - As soon as possible Disposition Disposition: Home, Self Care Discharge Date/Time: 01/20/23 21:22
== END 2023-01-20 21:22 | disposition home or self-care (01) ==
LOC: ED 21:11
PROVIDERS: Emergency Provider Student in an Organized Health Care Education/Training Program; PCP Internal Medicine; Visit Provider Student in an Organized Health Care Education/Training Program
DX: O99.612 Diseases of the digestive system complicating pregnancy, second trimester (principal); R68.84 Jaw pain; Z98.818 Other dental procedure status; O99.332 Smoking (tobacco) complicating pregnancy, second trimester; F17.210 Nicotine dependence, cigarettes, uncomplicated; Z88.0 Allergy status to penicillin; Z3A.27 27 weeks gestation of pregnancy
CPT/HCPCS: 99282

== ENCOUNTER 2023-04-10 05:52 | Inpatient (IN) | payer MEDICAID, SELFPAY ==
[2023-04-10] VITALS (36 sets, daily range): BP systolic 109–159; BP diastolic 56–91; PULSE 68–102; RESP 16; TEMP 36.2–37; O2SAT 94–100; BMI 37.3
[2023-04-10] MEDS: LACTATED RINGERS 500 ML 999 ML IV (06:00)
[2023-04-10 06:31] LABS: Absolute Lymphocyte Count 2.14 X10^3/uL (0.83-4.51); Absolute Neutrophil Count 5.1 X10^3/uL (2.0-7.7); Basophil# 0.05 X10^3/uL; Basophil% 0.6 % (0-1); Eosinophil# 0.14 X10^3/uL; Eosinophils% 1.7 % (0-5); Hematocrit 38.8 % (37-47); Hemoglobin 12.5 g/dL (12.0-15.0); Lymphocyte # 2.14 X10^3/ul (0.83-4.51); Lymphocyte % 26.6 % (19-41); Mean Corp Hgb Conc 32.2 g/dL (32-36); Mean Corpuscular Hgb 29.6 pg (27.0-32.0); Mean Corpuscular Volume 91.9 fL (81-99); Mean Platelet Vol. 10.9 fl (6.2-12.0); Monocyte# 0.54 X10^3/uL; Monocyte% 6.7 % (0-10); NRBC Flagged by Analyzer 0 % (0-5); Neutrophil # 5.11 X10^3/uL (2.7-7.7); Neutrophil % 63.7 % (47-70); Platelet Count 160 K/mm3 (150-450); RBC Distribution Width CV 14.6 % (11.6-14.6); RBC Distribution Width SD 48.6 fl (35.1-43.9); Red Blood Count 4.22 M/mm3 (4.2-5.4)
[2023-04-10 06:37] LABS: Bedside Glucose 170 mg/dL (74-106)
--- NOTE | 2023-04-10 06:46 | HP.PCM.OB_ITS ---
HPI - General General Date of Admission: 04/10/23 Date of Service: 04/10/23 Chief Complaint: labor HPI Narrative CAYDEN WAITE, is a 33 F who presents with ctx's at 39w0d. She reports a gush of clear fluid overnight at home followed by painful ctx's q 6 min. No vb. +FM. PFSH PFSH Medical History Difficulty balancing Dysuria Gave to child recently Heart disease Hemorrhoids Limb weakness Lumbar radiculopathy neck/back pain PCOS (polycystic ovarian syndrome) Severe headache UTI (urinary tract infection) Vaginal discharge Home Medications NK 08/03/22 [History Last Taken Unknown] Allergy/AdvReac Type Severity Reaction Status Date / Time ciprofloxacin Allergy Unknown unknown Verified 01/20/23 20:40 cyclobenzaprine Allergy Swelling Verified 01/20/23 20:40 [From Flexeril] Penicillins Allergy Swelling Verified 01/20/23 20:40 Family History Father Cancer Mother Afib Fibromyalgia Surgical History History of D&C History of radiofrequency ablation (RFA) procedure for cardiac arrhythmia Social History Smoking Status: Current some day smoker tobacco type: cigarettes Tobacco: How many years used: 2 second hand exposure: No alcohol intake: never substance use type: does not use what type of physical activity do you participate in: none NST FHR Rate Baby A Baseline: 140 Variability:: Moderate Accelerations:: 15 x 15 Decelerations:: Early, Late and Variable Uterine Activity:: ctx's q 6 min Currently FHT 140/mod timur/+accels/no decels No recurrent decelerations Vital Signs Vital Signs Vital Signs: 04/10/23 05:26 04/10/23 05:26 04/10/23 05:26 Pulse Rate 87 Blood Pressure 133/78 H BP Systolic 133 BP Diastolic 78 Pulse Ox 98 Weight Weight: 238 lb 5.115 oz Body Mass Index (BMI) 37.3 Physical Exam Const alert and no apparent distress Narrative: Cvx 4/70/-3, head down, membranes palpated Labs Labs Labs: Blood Type Pending Antibody Screen Pending Hct 38.8 % (37-47) Hgb 12.5 g/dL (12.0-15.0) Obstetrics US Syphilis Total Ab Pending Miscellaneous Test Assessment & Plan (1) 39 weeks gestation of : PLAN: Admit for routine intrapartum care. Epidural for pain control. IVF bolus given on admission now with reassuring FHT at this time. Cvx 4 cm and membranes palpated on exam, ROM plus in process. Discussed AROM after comfortable with epidural. Start Vanc for GBS positive status. Pelvis adequate and EFW AGA. (2) Uterine contractions: PLAN: 4 cm on admission (3) History of cardiomyopathy: PLAN: Cleared from MFM and anesthesia for delivery at [facility]. Most recent Echo normal. Will need close monitoring and follow up (4) Gestational diabetes: PLAN: BG on admission 170. Start insulin drip and diabetic protocol (5) Opiate use: PLAN: Drug screen on admission (6) complicated by subutex maintenance, antepartum: (7) Grand multipara in labor: (8) History of depression: (9) Obesity affecting :
[2023-04-10 06:51] LABS: ROM Internal Control Test YES-OK TO RESULT pt. (Internal QC); ROM Patient Test Negative (Negative); Record Kit Lot#, ROM+ K1374
[2023-04-10] MEDS: Lactated Ringers 1,000 ML 200 ML IV ×2 (06:52→13:41)
[2023-04-10 06:57] LABS: Protein, Urine (Random) 53.4 mg/dL (<11.9); Protein:Creat Ratio 207 mg/g CRE (0-200)
[2023-04-10 07:06] LABS: ALB/GLOB Ratio 0.6 RATIO (0.9-2.4); AST(SGOT) 19 U/L (15-37); Alanine Aminotransfer ALT/SGPT 18 U/L (13-56); Albumin, Serum 2.4 g/dL (3.2-5.0); Alkaline Phosphatase 143 U/L (45-117); Anion Gap 5 (5-15); BUN 9 mg/dL (7-18); BUN/Creat Ratio 13.3 RATIO (10-20); Calcium,Total 8.6 mg/dL (8.5-10.1); Chloride 109 mmol/L (98-107); Creatinine, Serum 0.68 mg/dL (0.55-1.02); EST Glomerular Filtration Rate 105 mL/min (>60); Est Glom Filt Rate - Afr Amer 127 mL/min (>60); Estimated Creatinine Clearance 112.29 ml/min; Globulin 3.7 g/dL (2.2-4.2); Glucose 188 mg/dL (74-106); Potassium 3.8 mmol/L (3.5-5.1); Protein, Total 6.1 g/dL (6.4-8.2); Sodium Level 137 mmol/L (136-145)
[2023-04-10 07:10] LABS: Amphetamine Urine VISTA NEGATIVE (<1000 ng/mL); Barbiturate Urine VISTA NEGATIVE (< 200 ng/mL); Benzodiazepine Urine VISTA NEGATIVE (< 200 ng/mL); Cocaine Urine VISTA NEGATIVE (< 300 ng/mL); Ecstacy Urine VISTA NEGATIVE (< 500 ng/mL); Methadone Urine VISTA NEGATIVE (< 300 ng/mL); PCP Urine VISTA NEGATIVE (< 25 ng/mL); THC Urine VISTA NEGATIVE (< 50 ng/mL); Vista UDS pH Range 6
[2023-04-10] MEDS: Ropivacaine 0.5% 30 ML Vial 120 ML EPIDURAL (08:26)
[2023-04-10 09:49] LABS: Bedside Glucose 87 mg/dL (74-106)
[2023-04-10 10:15] LABS: Syphilis Antibodies Non-reactive
[2023-04-10] MEDS: Oxytocin 15 Units/NS 250ml 15 UNITS/250 ML IV.SOLN 2 UNITS IV (11:15)
[2023-04-10 12:09] LABS: Bedside Glucose 68 mg/dL (74-106)
[2023-04-10 12:09] LABS: Bedside Glucose 85 mg/dL (74-106)
[2023-04-10 12:09] LABS: Bedside Glucose 79 mg/dL (74-106)
[2023-04-10 13:00] LABS: Bedside Glucose 82 mg/dL (74-106)
[2023-04-10] MEDS: buprenorphine HCL 8 MG TAB.SUBL 16 MG SL (13:47)
[2023-04-10 15:07] LABS: Bedside Glucose 73 mg/dL (74-106)
[2023-04-10 15:07] LABS: Bedside Glucose 105 mg/dL (74-106)
--- NOTE | 2023-04-10 15:54 | PCM.PN.OB ---
Subjective Subjective Patient seen at bedside. Having some difficulty with pain control since epidural placement. Rate needed turned down and now she is feeling contractions. Objective Data Objective Data Vital Signs: Vital Signs Temp Pulse BP Pulse Ox 97.1 F L 82 125/85 H 99 04/10/23 12:41 04/10/23 15:30 04/10/23 15:30 04/10/23 08:54 Weight: 238 lb 5.115 oz Body Mass Index (BMI) 37.3 Intake & Output: Intake and Output for Last 24 Hours 04/08/23 04/09/23 04/10/23 23:59 23:59 23:59 Intake Total 2049.84 / 2049.84 Balance 2049. / 2049. Lab / Micro Data Result Diagrams: 04/10/23 06:00 04/10/23 06:00 Labs: Laboratory Results - last 24 hr 04/10/23 05:39: Vag Amniotic Fld Detect Negative 04/10/23 05:50: U Random Total Protein 53.4 H, Urine Creatinine 258.00, Protein/Creatinin Ratio 207 H 04/10/23 05:50: Urine Opiates Screen NEGATIVE, Urine Methadone Screen NEGATIVE, Ur Barbiturates Screen NEGATIVE, Ur Phencyclidine Scrn NEGATIVE, Ur Amphetamines Screen NEGATIVE, MDMA (Ecstasy) Screen NEGATIVE, U Benzodiazepines Scrn NEGATIVE, Urine Cocaine Screen NEGATIVE, U Cannabinoids Screen NEGATIVE, Ur Drug Screen Comment 04/10/23 06:00: WBC 8.0, RBC 4.22, Hgb 12.5, Hct 38.8, MCV 91.9, MCH 29.6, MCHC 32.2, RDW Std Deviation 48.6 H, RDW Coeff of [place] 14.6, Plt Count 160, MPV 10.9, Immature Gran % (Auto) 0.700, Neut % (Auto) 63.7, Lymph % (Auto) 26.6, [place] % (Auto) 6.7, Eos % (Auto) 1.7, Baso % (Auto) 0.6, Absolute Neuts (auto) 5.1, Absolute Lymphs (auto) 2.14, Nucleated RBC % 0 04/10/23 06:00: Blood Type A POSITIVE, Antibody Screen NEGATIVE 04/10/23 06:00: Syphilis Total Ab Non-reactive 04/10/23 06:00: Sodium 137, Potassium 3.8, Chloride 109 H, Carbon Dioxide 23.0, Anion Gap 5, BUN 9, Creatinine 0.68, Estim Creat Clear Calc 112.29, Est GFR (MDRD) Af Amer 127, Est GFR (MDRD) Non-Af 105, BUN/Creatinine Ratio 13.3, Glucose 188 H, Calcium 8.6, Total Bilirubin 0.20, AST 19, ALT 18, Alkaline Phosphatase 143 H, Total Protein 6.1 L, Albumin 2.4 L, Globulin 3.7, Albumin/Globulin Ratio 0.6 L 04/10/23 06:18: POC Glucose 170 H 04/10/23 08:33: POC Glucose 87 04/10/23 09:34: POC Glucose 79 04/10/23 10:41: POC Glucose 85 04/10/23 11:39: POC Glucose 68 L 04/10/23 12:38: POC Glucose 82 04/10/23 13:45: POC Glucose 73 L 04/10/23 14:32: POC Glucose 105 ROS Eyes Eyes: Denies blurry vision, change in vision or spots in vision ENT HEENT: Denies dizziness or headache(s) Cardiovascular Cardiovascular: Denies abdominal pain, chest pain or dyspnea Respiratory/Chest Respiratory/Chest: Denies cough, dyspnea, shortness of breath at rest or shortness of breath with exertion Gastrointestinal Gastrointestinal: Denies abdominal pain, diarrhea or vomiting Genitourinary Genitourinary: Denies change in urinary stream, difficulty urinating or dysuria Musculoskeletal Musculoskeletal: Reports none Integumentary Integumentary: Denies rash Neurologic Neurologic: Denies dizziness, headache(s), memory loss or weakness Physical Exam Const alert and no apparent distress General Appearance: cooperative and comfortable Exam Limitations: no limitations HEENT normocephalic Eyes General Eye: normal appearance of both eyes Neck full ROM General: normal visual inspection Chest Chest: symmetrical chest wall rise Resp normal respiratory effort and normal air movement Effort and Inspection: symmetric chest movement Cardio regular rate GI normal to inspection, nondistended, normoactive bowel sounds Extremity no calf tenderness Extremity Narrative: Epidural anesthesia General Extremity: normal exam except as noted Skin no rashes or lesions noted Neuro CN's II-XII intact bilaterally and moves all extremities Assessment & Plan (1) 39 weeks gestation of : (2) History of cardiomyopathy: (3) Gestational diabetes: (4) Opiate use: (5) complicated by subutex maintenance, antepartum: (6) Grand multipara in labor: (7) History of depression: (8) Obesity affecting : (9) Anxiety: PLAN: Plan AROM for moderate amount of bloody/clear fluid CE- 7//-2 IUPC placed without difficulty Some variable and early decelerations- resolve with position changes- overall reassuring FHT Dr. Marin updated Anticipate
[2023-04-10] MEDS: Oxytocin 10 UNITS/ML Vial IM (16:32)
[2023-04-10 16:38] LABS: Bedside Glucose 98 mg/dL (74-106)
--- NOTE | 2023-04-10 16:40 | EX.PCM.OBRPT ---
Assessment & Plan (1) (spontaneous vaginal delivery): (2) Anxiety: (3) Arrhythmia: (4) Gestational diabetes: (5) Opiate use: (6) complicated by subutex maintenance, antepartum: (7) Grand multipara in labor: (8) History of depression: (9) Obesity affecting : Maternal Data Information [place] Calculator Estimated Delivery Date Method Current WG Current Estimate 04/17/23 Manual 39w 0d Vaginal Delivery Maternal Presentation Maternal Presentation: at 39 weeks that presented in spontaneous labor. Type of Induction: Pitocin (Augmentation) and Amniotomy (augmentation) Operative Information Date of Procedure: 04/10/23 Pre-Operative Diagnosis: Term gestation, spontaneous onset of labor Post-Operative Diagnosis: , Live female Surgery / Procedure Performed: Spontaneous Vaginal Delivery Type of Anesthesia: Epidural Estimated Blood Loss: 250 Time of Delivery: 16:29 Findings Description of Procedure: Patient quickly progressed to complete dilation after A.R.O.M. Called Dr. Rg for delivery and in route to hospital. I was at patient's bedside for decelerations. Complete dilation and +2 station. With minimal maternal effort, head delivered over intact perineum followed by posterior shoulder and remainder of body without traction. Vigorous female placed on maternal abdomen and was attended to by nursing staff. Pitocin IM given for active management of the third stage of labor. 3 vessel cord clamped and cut by FOB. Infant placed skin to skin with patient. Placenta delivered spontaneously and intact. Fundus firm 2 below U. Vaginal sweep completed by me. Vagina and perineum intact. EBL 250 cc. APGARS 8/9. Patient and infant bonding well at this time. Dr. Rg arrived to unit and is currently in patient's room. Presentation: Vertex Amniotic Membrane Rupture Type: Artificial Time of Membrane Rupture: 1543 Amniotic Fluid Description: Bloody Placental Delivery Description: Spontaneous Placenta Disposition: [facility] Cord Vessel Description: 3 Vessels Cord Entanglement: None A Gender: Female (1 minute): 8 (5 minute): 9 Delayed Cord Clamping: Yes Post Vaginal Delivery Medications Given After Delivery: IM Pitocin Episiotomy Description: None Laceration: None
[2023-04-10 18:35] LABS: Bedside Glucose 112 mg/dL (74-106)
[2023-04-10] MEDS: Acetaminophen 500 MG Tablet 1000 MG PO (21:00)
[2023-04-11] MEDS: Naproxen 500 MG Tablet PO ×3 (01:44→19:48)
--- NOTE | 2023-04-11 02:16 | NURSING ---
pt was advised at the beginning of the shift to not eat or drink anything but water after midnight because we will need to get a fasting blood sugar, patient verbalized understanding. mother drank Gatorade, this RN reinforced to pt that she needs to be fasting. advised to only drink water, fasting blood sugar will be collected around 0800.
[2023-04-11 04:52] VITALS: BP 114/50; PULSE 76; RESP 16; TEMP 36.4; O2SAT 97
--- NOTE | 2023-04-11 06:38 | NURSING ---
this RN rounding on mother and . pt was reminded x2 to feed at 3 hour sherri. was in bassinet, showing feeding cues, this RN encouraged pt to feed on demand. pt asked for to get a pump, this RN offered to get her a single pump but educated mom that putting baby to breast is best. mom requested to see her and asked when they would be in. pt got very frustrated when offered help to latch and refused help from this RN. this RN offered to unwrap infant and arouse her to eat, mom ignored assistance. this RN assured mom I am not there to frustrate her only to do my job and help if needed. this RN told pt to call if assistance was needed and pt yawned and did not respond. will continue to monitor.
[2023-04-11 07:25] VITALS: BP 106/81; PULSE 82; RESP 15; O2SAT 95
--- NOTE | 2023-04-11 07:49 | NURSING ---
[id number] pt called out stating that she feels like she might pass out- blood sugar 65- pt given juice and crackers- instructed on ordering breakfast
[2023-04-11 08:12] LABS: Bedside Glucose 65 mg/dL (74-106)
[2023-04-11 08:23] VITALS: TEMP 36.8
--- NOTE | 2023-04-11 09:00 | PN.OBGYN_ITS ---
Subjective Subjective Pain well controlled. Average lochia Objective Data Objective Data Vital Signs: Vital Signs Temp Pulse Resp BP Pulse Ox O2 Del Method 98.2 F 82 15 106/81 H 95 Room Air 04/11/23 08:23 04/11/23 07:25 04/11/23 07:25 04/11/23 07:25 04/11/23 07:25 04/11/23 07:25 Oxygen Delivery Method Room Air Weight: 108.1 kg Body Mass Index (BMI) 37.3 Intake & Output: Intake and Output for Last 24 Hours 04/09/23 04/10/23 04/11/23 23:59 23:59 23:59 Intake Total 3176.24 / 3176.24 Output Total 1325 / 1325 Balance 1851.24 / 1851.24 Lab / Micro Data Result Diagrams: 04/10/23 06:00 04/10/23 06:00 Labs: Laboratory Results - last 24 hr 04/10/23 06:00: Syphilis Total Ab Non-reactive 04/10/23 08:33: POC Glucose 87 04/10/23 09:34: POC Glucose 79 04/10/23 10:41: POC Glucose 85 04/10/23 11:39: POC Glucose 68 L 04/10/23 12:38: POC Glucose 82 04/10/23 13:45: POC Glucose 73 L 04/10/23 14:32: POC Glucose 105 04/10/23 15:29: POC Glucose 98 04/10/23 18:16: POC Glucose 112 H 04/11/23 07:21: POC Glucose 65 L Physical Exam Const alert and no apparent distress Narrative: Fundus firm, below umbilicus. Assessment & Plan (1) (spontaneous vaginal delivery): PLAN: day #1 status post vaginal delivery. Patient is doing well. Working on breast-feeding. Routine care for patient. being observed for abstinence syndrome. Patient will likely be discharged to [facility] tomorrow
[2023-04-11] MEDS: buprenorphine HCL 8 MG TAB.SUBL 16 MG SL (09:28)
--- NOTE | 2023-04-11 10:55 | NURSING ---
0800 pt states that she is feeling much better after eating
[2023-04-11 12:50] VITALS: BP 119/76; PULSE 87; RESP 15; TEMP 37.1
[2023-04-11] MEDS: Prenatal Vits Tablet 1 TABLET PO (13:01)
[2023-04-11 15:27] VITALS: BP 110/67; PULSE 72; RESP 16; TEMP 36.3
--- NOTE | 2023-04-11 18:34 | CASEMGMT ---
Social Work Labor and Delivery Unit Consult received for maternal history of substance use; history of using pain medication and currently on Subutex. Medical records have been reviewed. Collaboration with nursing and pediatrics staff. Infant to remain in the hospital for a minimum of 5 days for OSCAR monitoring began to eat sleep console method. Plan: Will plan to meet with MOB on 04/12/2023 for assessment, support provision of resources and referrals as indicated. -LUIS M Vargas, TUBING DRIER *This note was generated with [employer] dictation software. It may contain incorrect words, spelling, and punctuation that were not noted in review of the chart prior to signing*
[2023-04-11 19:42] VITALS: BP 114/78; PULSE 72; RESP 16; TEMP 36.4; O2SAT 97
[2023-04-12 00:15] VITALS: BP 112/67; PULSE 69; RESP 16; TEMP 36.6; O2SAT 98
[2023-04-12] MEDS: Naproxen 500 MG Tablet PO (04:50)
[2023-04-12 04:53] VITALS: BP 107/68; PULSE 72; RESP 16; TEMP 36.6; O2SAT 94
[2023-04-12 08:34] VITALS: BP 127/81; PULSE 16; RESP 16; TEMP 36.1
--- NOTE | 2023-04-12 08:45 | PCM.PROGNOTE ---
Subjective Subjective patient seen at bedside, doing well. Patient reports good pain control. lochia mild. Objective Data Objective Data Vital Signs: Vital Signs Temp Pulse Resp BP Pulse Ox O2 Del Method 97.0 F L 16 L 16 127/81 H 94 Room Air 04/12/23 08:34 04/12/23 08:34 04/12/23 08:34 04/12/23 08:34 04/12/23 04:53 04/12/23 08:34 Oxygen Delivery Method Room Air Weight: 108.1 kg Body Mass Index (BMI) 37.3 Intake & Output: Intake and Output for Last 24 Hours 04/10/23 04/11/23 04/12/23 23:59 23:59 23:59 Intake Total 3176.24 / 3176.24 Output Total 1325 / 1325 Balance 1851.24 / 1851.24 Lab / Micro Data Result Diagrams: 04/10/23 06:00 04/10/23 06:00 Physical Exam Const alert and oriented x3 General Appearance: cooperative HEENT normocephalic Neck General: normal visual inspection GI soft to palpation and non-distended GI Narrative: Fundus firm Extremity normal to inspection and no calf tenderness Skin no rashes or lesions noted Neuro oriented x3 and CN's II-XII intact bilaterally Psych mental status grossly normal Assessment & Plan Assessment/Plan (1) (spontaneous vaginal delivery): (2) Gestational diabetes: (3) History of cardiomyopathy: (4) Opiate use: (5) complicated by subutex maintenance, antepartum: (6) History of depression: PLAN: Plan PPD# 2 , Doing well Routine care pain mgmt ambulation dc to hotel until infant cleared for dc home
--- NOTE | 2023-04-12 08:46 | DCINST_ITS ---
Discharge Instructions Procedure Vaginal Delivery Diet Discharge Diet: No restrictions Activity May resume sexual activity in: 6-8 weeks Dressing / Incision Call your doctor if you observe: Fever of 101 or Higher, Inability to urinate, Using more than 1 pad per hour and Uncontrolled pain Follow Up Care Please Follow Up With: Kaya Crawford MD When: 1-2 weeks post and again at 6 weeks post . [phone] Test Results: Test results from this visit will be discussed in further detail at your follow- up appointment, if applicable. Discharge Plan Admission Admit Date/Time: 04/10/23 05:52 Attending Provider: Izzy Klein Primary Care Provider: Nithya Guevara Discharge Orders/Prescriptions Prescriptions: New acetaminophen 500 mg Tablet 1,000 mg PO Q6H PRN PRN (Reason: Pain 1-10 Or Fever) Qty: 0 0RF naproxen 500 mg Tablet 500 mg PO Q8H PRN PRN (Reason: Pain Score 1-3) Qty: 0 0RF Continued [id number] 1 mg Tablet 1 tab PO DAILY buprenorphine HCl 8 mg Tablet, Sublingual 16 mg SUBLINGUAL DAILY Referrals / Follow Up: Nithya Guevara MD [Primary Care Provider] - Disposition Disposition (needs filled in before D/C Order can be placed): Home, Self Care
[2023-04-12] MEDS: buprenorphine HCL 8 MG TAB.SUBL 16 MG SL (10:57)
--- NOTE | 2023-04-13 12:30 | CASEMGMT ---
Social Work Assessment Labor and Delivery Unit Date of Referral: 04.10.23 Time of Referral: 737 Referred By: Dr Jaqueline Orellana Date of Intervention: 04.13.2023 Time of Intervention: Approximately [id number] Reason for Referral: Maternal history of pain medication use; now on Subutex History obtained from: Medical records, mother of baby (MOB) Sandi Egan Household composition: MOB, father of baby (FOB) Zack Forman, and MOB's older children. Home situation is reported as safe and adequate. Patient's parent/guardian status: MOB is a 33 year old female, with the FOB since 2017. MOB denies any form of abuse or domestic violence in this relationship. MOB and FOB now share 3 children together. Minor children include: Amy (17) - father not involved Renuka (13), [place] (6) - MOB has shared parenting with father Maribel (3), Lissa (2), and Grace Forman. - father is current FOB. Medical History: MOB is G8, P6 to 7 after delivering Grace. care through [facility]. No reported issues with PNC. MOB with history of PCOS and GDM. delivered at 39 weeks gestation. Apgars 8 and 9 at 1 and 5 minutes of life respectively. weight 7 pounds 8 ounces. Educational Status: College degree in Social Work. No reported issues with reading, writing, or learning. Financial Status: MOB currently stays at home, but used to work for the [employer]. 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 Supplies: Reports to have needed supplies including car seat, bassinet, crib, clothing, diapers, wipes. Providing breast milk. Childcare/Caregiver(s): MOB is primary caregiver. Transportation: MOB denies any concerns. Programs/Agencies Involved: [place], [place], and has [facility] for Lissa. Denies any other agency involvement. Children Services/Legal Issues: No reported legal issues. Denies any current CSB. Reports grew up having children services involved and then was a teen mom, which at that time CSB was also involved. MOB reports as an adult CSB has gotten involved one time for Amy running away. Behavioral Health Issues: Mental Health History: MOB with history of depression and anxiety. Possible depression history but nothing diagnosed. MOB denies any counseling and no medication. No reported history of SI. 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 Denies abuse of the medication, but needed assist with getting off of pain pills. Reports has been on Subutex, is currently prescribed 16 mg a day. Prescribed by Funmi Guadalupe, out of [facility]. Tonio use of alcohol, or other drugs. Drug Screens: maternal drug screen negative on 04.10.23; Infant's urine is negative except for buprenorphine. Meconium is pending. Family/Social Stressors: None reported. Support Systems: FOB is main support. Depression/Shaken Baby/Safe Sleeping : Received safe sleeping, shaken baby syndrome, and risk for PPD PPA. ASSESSMENT: Met with MOB in room,, introducing to self. FOB was in room, about to go to sleep. When MOB heard SW would ask FOB to step out of the room, the MOB indicated preference to speak outside of room with SW to allow for FOB to sleep. MOB indicated okay to talk in waiting area of the WP, even after SW indicated would find a private room for discussion. MOB cooperative with SW visit, answered questions. MOB discussed frustration with not being aware of need for to be monitored for OSCAR symptoms due to the Subutex, and reported that had MOB known this information would have weaned self off of medication during the . Supportive listening provided. Educated MOB to the [place] Act and indication to report to CSB 's who have substance exposure in utero, though not certain anything will be done with referral due to this being prescribed. Asked MOB to sign release to Subutex provider so as to confirm MOB's adherence to treatment, as this would be a protective factor with the CSB referral. MOB agreed and signed a release to Dr. Guadalupe. Educated MOB to PPD, symptoms, and risk. MOB indicated that as a social media assistant had some knowledge base. This principal technical writer acknowledged MOB's training, but that MOB is also a human and health care workers cannot make assumptions or not provide support due to someone's training. MOB acknowledged it is good to be consistent with education offered. MOB accepted information\ non PPD, but declined any additional resource needs. MOB denies any needs for home going and reports to have all basic needs met for self and family. Safe Plan of Care for infant related to substance use: Remain on prescribed regimen and adhere to treatment plan. PLAN: to home with MOB when OSCAR monitoring is through. PPD information has been given. Will contact Dr. Guadalupe's office to confirm MOB's adherence to treatment. CSB notification due to in utero exposure, but no reason to hold baby at hospital, unless concerns arise during stay to warrant immediacy safety concerns. -SVEN Vargas, COLLAR TURNER
--- NOTE | 2023-04-13 16:52 | CASEMGMT ---
Social Work Labor and Delivery Unit Called Dr. Funmi Guadalupe's office through [facility] ([phone]) and spoke with Dotty the nurse. Confirmed fax number as [phone], and faxed release of information to confirm mother of baby's adherence to Subutex treatment. Received phone call back from Dotty after receipt of release of information the reports that confirmed with patient's pharmacy, that patient recently picked up a 20-day supply of Subutex. Noted in patient's medical record that patient has been attending appointments and no noted concerns reported to this advertising copywriter regarding adherence to treatment. Plan: Mother of baby has already been discharged as a patient. Infant will be discharged when OSCAR monitoring is completed. MOB has been provided with information on depression and anxiety. We will plan to notify children services about infant substance exposure in utero to Subutex, though do not anticipate any type of investigation as MOB appears to be working with the treatment provider and infant drug screen consistent with MOB's prescribed treatment. -LUIS M Vargas, CHEF ASSISTANT *This note was generated with [employer] software. It may contain incorrect words, spelling, and punctuation that were not noted in review of the chart prior to signing*
--- NOTE | 2023-04-19 14:25 | CASEMGMT ---
Social Work Labor and Delivery Unit Called [facility] children services Angelique Motley in the intake department, , extension [phone]. Reported to substance exposed in utero of Subutex. Reported also that mother of baby (MOB) appeared to be prescribed and adhere to treatment as evidenced by phone call this business writer made to prescribing office. Brief maternal and history is provided, including mother of baby having prior history with children services. Reported that was monitored for 5 days and required no medication assistance with withdrawal. Reported also that MOB is currently working with help me grow for an older child in the home. Angelique made aware that both mother of baby and infant have been discharged. No reported concerns with care of the infant by the MOB. Per Angelique, referral likely to be screened out. -LUIS M Vargas, SENIOR ANALYST DEVELOPER *This note was generated with [employer] software. It may contain incorrect words, spelling, and punctuation that were not noted in review of the chart prior to signing*
== END 2023-04-12 11:12 | disposition home or self-care (01) | DRG 560 ==
LOC: WPOUT 05:55 → WP 05:55
PROVIDERS: Advanced Practice Midwife; Obstetrics & Gynecology; Admitting Provider Advanced Practice Midwife; PCP Internal Medicine; Referring Provider Advanced Practice Midwife; Visit Provider Advanced Practice Midwife
DX: O99.824 Streptococcus B carrier state complicating childbirth (principal); Z37.0 Single live birth; E66.9 Obesity, unspecified; F17.210 Nicotine dependence, cigarettes, uncomplicated; F41.9 Anxiety disorder, unspecified; O76 Abnormality in fetal heart rate and rhythm complicating labor and delivery; O24.429 Gestational diabetes mellitus in childbirth, unspecified control; O99.344 Other mental disorders complicating childbirth; Z3A.39 39 weeks gestation of pregnancy; O99.334 Smoking (tobacco) complicating childbirth; O99.214 Obesity complicating childbirth; Z86.79 Personal history of other diseases of the circulatory system
CPT/HCPCS: 59025; 59050; 76815; 80053; 80307; 82570; 82962; 84112; 84156; 85025; 86780; 86850; 86900; 86901; 99221; J7040; J7120; G0378

== ENCOUNTER 2023-07-17 12:43 | Emergency (ER) | payer MEDICAID, SELFPAY ==
[2023-07-17 12:44] VITALS: BP 136/81; PULSE 85; RESP 18; TEMP 36; O2SAT 100
--- NOTE | 2023-07-17 13:55 | EKG12_ITS ---
Test Reason : CP Blood Pressure : / mmHG Vent. Rate : 080 BPM Atrial Rate : 080 BPM P-R Int : 154 ms QRS Dur : 082 ms QT Int : 384 ms P-R-T Axes : 045 021 024 degrees QTc Int : 442 ms Normal sinus rhythm Normal ECG Confirmed by DOLLY MCHUGH, INDERJIT ([id number]), assistant production editor MARCELLA LUCIANO ([id number]) on 07/24/2023 10:10:39 AM Referred By: Confirmed By:ZULMA ALBERTO MD
[2023-07-17 14:09] LABS: Absolute Neutrophil Count 2.4 X10^3/uL (2.0-7.7); Basophil# 0.03 X10^3/uL; Basophil% 0.6 % (0-1); Eosinophil# 0.13 X10^3/uL; Eosinophils% 2.6 % (0-5); Hematocrit 43.9 % (37-47); Hemoglobin 14.9 g/dL (12.0-15.0); Lymphocyte % 40.1 % (19-41); Mean Corp Hgb Conc 33.9 g/dL (32-36); Mean Corpuscular Hgb 29.7 pg (27.0-32.0); Mean Corpuscular Volume 87.6 fL (81-99); Mean Platelet Vol. 9.2 fl (6.2-12.0); Monocyte# 0.39 X10^3/uL; Monocyte% 7.8 % (0-10); NRBC Flagged by Analyzer 0 % (0-5); Neutrophil # 2.43 X10^3/uL (2.7-7.7); Neutrophil % 48.7 % (47-70); Platelet Count 177 K/mm3 (150-450); RBC Distribution Width CV 13.1 % (11.6-14.6); RBC Distribution Width SD 41.9 fl (35.1-43.9); Red Blood Count 5.01 M/mm3 (4.2-5.4)
--- NOTE | 2023-07-17 14:10 | NURSING ---
NO OLD EKG
--- NOTE | 2023-07-17 14:25 | RAD_ITS ---
STUDY: X-RAY CHEST REASON FOR EXAM: Female, 33 years old. Chest pain TECHNIQUE: Single AP portable view of the chest. COMPARISON: None. FINDINGS: The lungs are clear and expanded. Scattered calcified granulomas. There is no demonstrated pleural abnormality. Normal size heart. Normal mediastinum and ning. Normal visualized pulmonary arteries. Normal visualized aortic arch and descending thoracic aorta. Normal visualized thoracic spine. Normal visualized ribs, clavicles, and shoulders. There is no demonstrated abnormality of the visualized soft tissue structures of the upper abdomen. RAD/Chest 1 View (Portable) IMPRESSION: Normal x-ray examination of the chest. Electronically Signed: Jayson Bowman MD at 15:06 EDT ,
[2023-07-17 14:31] LABS: Anion Gap 3 (5-15); BUN 11 mg/dL (7-18); BUN/Creat Ratio 14.5 RATIO (10-20); Calcium,Total 8.6 mg/dL (8.5-10.1); Chloride 107 mmol/L (98-107); Creatinine, Serum 0.76 mg/dL (0.55-1.02); EST Glomerular Filtration Rate 92 mL/min (>60); Est Glom Filt Rate - Afr Amer 111 mL/min (>60); Glucose 95 mg/dL (74-106); Potassium 4.3 mmol/L (3.5-5.1); Sodium Level 138 mmol/L (136-145); Troponin-I HS (w/2H Reflex) < 3 pg/mL (3.0-54.0)
--- NOTE | 2023-07-17 15:16 | EX.ED.DYSGE1 ---
HPI <IFRAH Pena - Last Filed: 07/17/23 17:18> History of Present Illness Chief Complaint: Chest Pain Narrative Narrative: 33-year-old female with history of anxiety, arrhythmia SVT with history of ablation presents to the emergency department for multiple weeks of intermittent dizziness, feeling of passing out. Patient states this morning she woke up and she had chest pain that radiated to bilateral arms and neck. Patient 3 months ago did give to her 6 child. Patient denies any nausea or vomiting. Denies any fever or chills. Patient states that she was looking her symptoms up online and it said that she could possibly having a heart attack. She is here for evaluation [facility] <IFRAH Pena - Last Filed: 07/17/23 17:18> [facility] Medical History (Updated 07/17/23 @ 16:56 by Celio Ferguson MD) Crushing injury of left thumb Difficulty balancing Dysuria Gave to child recently Heart disease Hemorrhoids History of cardiomyopathy History of pre-term labor Limb weakness Lumbar radiculopathy neck/back pain PCOS (polycystic ovarian syndrome) Scabies Severe headache (spontaneous vaginal delivery) UTI (urinary tract infection) Vaginal discharge Home Medications buprenorphine HCl 8 mg sublingual tablet 16 mg sublingual DAILY Check with primary doctor 04/10/23 [History Last Taken 04/09/23] dziynemn-vzw-Qq-FA 1 mg tablet 1 tab PO DAILY 04/10/23 [History Last Taken 04/09/23 20:00] acetaminophen 500 mg tablet 1,000 mg (2 x 500 mg) PO Q6H PRN PRN Pain 1-10 Or Fever #0 tabs 04/12/23 [Rx Last Taken Unknown] naproxen 500 mg tablet 500 mg PO Q8H PRN PRN Pain Score 1-3 #0 tabs 04/12/23 [Rx Last Taken Unknown] Allergy/AdvReac Type Severity Reaction Status Date / Time ciprofloxacin Allergy Unknown unknown Verified 07/17/23 12:43 cyclobenzaprine Allergy Swelling Verified 07/17/23 12:43 [From Flexeril] Penicillins Allergy Swelling Verified 07/17/23 12:43 Family History Father Cancer Mother Afib Fibromyalgia Surgical History History of D&C History of radiofrequency ablation (RFA) procedure for cardiac arrhythmia Social History Smoking Status: Former smoker Tobacco: How many years used: 2 second hand exposure: No alcohol intake: never substance use type: does not use what type of physical activity do you participate in: none ROS <IFRAH Pena - Last Filed: 07/17/23 17:18> ROS ED ROS Narrative Constitutional: Negative for fever, chills, weight loss, weakness Eyes: Negative for vision loss, vision change, double vision ENT: Negative for any sore throat, ear pain, congestion Cardiovascular: Negative for any tightness, palpitations. Positive chest pain Respiratory: Negative for any cough, sputum production, hemoptysis, dyspnea, dyspnea on exertion, orthopnea Gastrointestinal: Negative for any abdominal pain, nausea, vomiting, diarrhea, constipation, blood in stool, blood in vomit : Negative for any urinary frequency, dysuria, retention, blood in urine Muscle skeletal: Negative for any muscle joint pain, stiffness, myalgias, arthralgias, neck pain, back pain Neurological: Negative for any headache, syncope. Positive for numbness, tingling to bilateral arms, intermittent feeling of dizziness, near syncope. Skin: Negative for any rashes, lumps, itching, abrasions, lacerations Psychiatric: Negative for any depression, anxiety, stress, suicidal ideation, homicidal ideation Hematologic: Negative for any easy bruising, excessive bruising, easy bleeding Allergies: Negative for any eczema, hives, rash EXAM <IFRAH Pena - Last Filed: 07/17/23 17:18> Physical Exam Const Vital Signs: 07/17/23 12:44 07/17/23 14:19 07/17/23 14:19 Temperature 96.8 F L Temperature Source Temporal Pulse Rate 85 Respiratory Rate 18 Respiratory Effort Normal Non-Labored Blood Pressure 136/81 H Blood Pressure Mean 99 Pulse Ox 100 Oxygen Delivery Method Room Air Room Air 07/17/23 16:48 Temperature Temperature Source Pulse Rate Respiratory Rate 16 Respiratory Effort Blood Pressure Blood Pressure Mean Pulse Ox Oxygen Delivery Method <Celio Ferguson MD - Last Filed: 07/17/23 20:02> Physical Exam Const Vital Signs: 07/17/23 12:44 07/17/23 14:19 07/17/23 14:19 Temperature 96.8 F L Temperature Source Temporal Pulse Rate 85 Respiratory Rate 18 Respiratory Effort Normal Non-Labored Blood Pressure 136/81 H Blood Pressure Mean 99 Pulse Ox 100 Oxygen Delivery Method Room Air Room Air 07/17/23 16:48 Temperature Temperature Source Pulse Rate Respiratory Rate 16 Respiratory Effort Blood Pressure Blood Pressure Mean Pulse Ox Oxygen Delivery Method SHARI <IFRAH Pena - Last Filed: 07/17/23 17:18> [facility] Lab Data Labs: Laboratory Results - last 24 hr 07/17/23 07/17/23 07/17/23 14:00 14:05 15:44 WBC 5.0 RBC 5.01 Hgb 14.9 Hct 43.9 MCV 87.6 MCH 29.7 MCHC 33.9 RDW Std Deviation 41.9 RDW Coeff of Keyanna 13.1 Plt Count 177 MPV 9.2 Immature Gran % (Auto) 0.200 Neut % (Auto) 48.7 Lymph % (Auto) 40.1 Frio % (Auto) 7.8 Eos % (Auto) 2.6 Baso % (Auto) 0.6 Absolute Neuts (auto) 2.4 Absolute Lymphs (auto) 2.00 Nucleated RBC % 0 D-Dimer Quant (PE/DVT) 0.93 H* Sodium 138 Potassium 4.3 Chloride 107 Carbon Dioxide 28.0 Anion Gap 3 L BUN 11 Creatinine 0.76 Est GFR (MDRD) Af Amer 111 Est GFR (MDRD) Non-Af 92 BUN/Creatinine Ratio 14.5 Glucose 95 Calcium 8.6 Troponin I High Sens < 3 L POC Glucose 84 07/17/23 16:37 WBC RBC Hgb Hct MCV MCH MCHC RDW Std Deviation RDW Coeff of Keyanna Plt Count MPV Immature Gran % (Auto) Neut % (Auto) Lymph % (Auto) Frio % (Auto) Eos % (Auto) Baso % (Auto) Absolute Neuts (auto) Absolute Lymphs (auto) Nucleated RBC % D-Dimer Quant (PE/DVT) Sodium Potassium Chloride Carbon Dioxide Anion Gap BUN Creatinine Est GFR (MDRD) Af Amer Est GFR (MDRD) Non-Af BUN/Creatinine Ratio Glucose Calcium Troponin I High Sens < 3 L POC Glucose Radiography Diagnostic Testing: Clinical Impression(s) from Imaging Studies Chest X-Ray 07/17/23 14:25 IMPRESSION: Normal x-ray examination of the chest. Electronically Signed: Jayson Bowman MD at 15:06 EDT , Chest CTA 07/17/23 15:36 IMPRESSION: Negative CTA chest. Electronically Signed: Sarah Oscar MD at 16:49 EDT , Treatment and Re-Evaluation :: Patient appears generally well, patient appears nontoxic, vital signs are stable. Presenting to the emergency department for complaints of intermittent chest pain, arm pain, near syncopal episodes. Patient did receive a full cardiac work-up, EKG was unremarkable. Patient is laboratory values show a normal CBC chemistries were unremarkable, patient had 2 negative troponins. Patient's chest x-ray two-view showed no acute process. All radiologic examinations were read, reviewed by the emergency department attending. From these reads, a plan of care will be put in place. Patient secondary to the passing out, there was concern for pulmonary embolus. Patient did give greater than 3 months ago. CTA of the chest showed a negative examination, no pulm embolus, pleural effusion or pneumonia. At this time, patient feels stable for discharge. Patient will need to follow-up outpatient. Many of the symptoms have been going on for multiple weeks. Patient instructed to return for any worsening symptoms. Patient stable for discharge. <Celio Ferguson MD - Last Filed: 07/17/23 20:02> [facility] MDM Narrative Medical decision making narrative: Dr. Ferguson: I have personally performed a face to face assessment of the patient and have reviewed the SAMIR Note. I performed a substantive portion of the visit including all aspects of the following. My licona findings include: History is lightheadedness, near syncope. Exam is afebrile. Vital signs noted. Regular rate and rhythm. Lungs clear to auscultation bilaterally. Abdomen soft nontender. Ambulatory in ED. Medical Decision Making: Chest pain work-up was pursued. I reviewed her laboratory work. Check high-sensitivity troponins/serial enzymes. Slightly elevated D-dimer which I think is nonspecific. Check CTA. Check chest x-ray. Chest x-ray interpreted by myself independently in 1 view shows no evidence of acute process, no pneumonia or pneumothorax. I reviewed the radiology report of the CTA which shows no evidence of acute pulmonary embolism or dissection. At this point in time, I feel she can be discharged safely home with follow-up to her primary care provider. Return instructions reviewed. Disposition is discharged home in stable condition. Other additions or changes: [None] History & Record Review Discussion w/independent historian: Patient Additional record(s) reviewed:: Prior ED visit and Prior labs Lab Data Attestation: I reviewed the patient's lab results. Labs: Laboratory Results - last 24 hr 07/17/23 07/17/23 07/17/23 14:00 14:05 15:44 WBC 5.0 RBC 5.01 Hgb 14.9 Hct 43.9 MCV 87.6 MCH 29.7 MCHC 33.9 RDW Std Deviation 41.9 RDW Coeff of Keyanna 13.1 Plt Count 177 MPV 9.2 Immature Gran % (Auto) 0.200 Neut % (Auto) 48.7 Lymph % (Auto) 40.1 Frio % (Auto) 7.8 Eos % (Auto) 2.6 Baso % (Auto) 0.6 Absolute Neuts (auto) 2.4 Absolute Lymphs (auto) 2.00 Nucleated RBC % 0 D-Dimer Quant (PE/DVT) 0.93 H* Sodium 138 Potassium 4.3 Chloride 107 Carbon Dioxide 28.0 Anion Gap 3 L BUN 11 Creatinine 0.76 Est GFR (MDRD) Af Amer 111 Est GFR (MDRD) Non-Af 92 BUN/Creatinine Ratio 14.5 Glucose 95 Calcium 8.6 Troponin I High Sens < 3 L POC Glucose 84 07/17/23 16:37 WBC RBC Hgb Hct MCV MCH MCHC RDW Std Deviation RDW Coeff of Keyanna Plt Count MPV Immature Gran % (Auto) Neut % (Auto) Lymph % (Auto) Frio % (Auto) Eos % (Auto) Baso % (Auto) Absolute Neuts (auto) Absolute Lymphs (auto) Nucleated RBC % D-Dimer Quant (PE/DVT) Sodium Potassium Chloride Carbon Dioxide Anion Gap BUN Creatinine Est GFR (MDRD) Af Amer Est GFR (MDRD) Non-Af BUN/Creatinine Ratio Glucose Calcium Troponin I High Sens < 3 L POC Glucose Radiography Chest X-Ray - ED: 1 View and Read by ED Physician Diagnostic Testing: Clinical Impression(s) from Imaging Studies Chest X-Ray 07/17/23 14:25 IMPRESSION: Normal x-ray examination of the chest. Electronically Signed: Jayson Bowman MD at 15:06 EDT , Chest CTA 07/17/23 15:36 IMPRESSION: Negative CTA chest. Electronically Signed: Sarah Oscar MD at 16:49 EDT , Discharge Plan Triage Chief Complaint: Chest Pain ED Midlevel Provider: Jalen Wolf ED Provider: Celio Ferguson Dx/Rx/DC Orders Clinical Impression: Dizziness, Near syncope, Elevated d-dimer Instructions: ED Dizziness, Uncertain Cause, ED Near-Fainting, Uncertain Cause Prescriptions: No Action qfuoevzy-urj-Zu-FA 1 mg Tablet 1 tab PO DAILY buprenorphine HCl 8 mg Tablet, Sublingual 16 mg SUBLINGUAL DAILY acetaminophen 500 mg Tablet 1,000 mg PO Q6H PRN PRN (Reason: Pain 1-10 Or Fever) Qty: 0 0RF naproxen 500 mg Tablet 500 mg PO Q8H PRN PRN (Reason: Pain Score 1-3) Qty: 0 0RF Primary Care Provider: Nithya Guevara Referrals: Nithya Guevara MD [Primary Care Provider] - 3-5 Days if not improving Disposition Disposition: Home, Self Care Discharge Date/Time: 07/17/23 17:21
[2023-07-17 15:34] LABS: D-Dimer Quantitative (DVT/PE) 0.93 FEU/ug/m (0.27-0.49)
--- NOTE | 2023-07-17 15:36 | CT_ITS ---
EXAM: CT ANGIOGRAPHY CHEST WITHOUT AND WITH INTRAVENOUS CONTRAST CLINICAL INDICATION: concern for PE TECHNIQUE: Helically acquired angiography images were obtained of the chest without and with intravenous contrast. This CT exam was performed using one or more of the following dose reduction techniques: automated exposure control, adjustment of the mA and/or kV according to patient size, and/or use of iterative reconstruction technique. MIP reconstructed images were created and reviewed. CONTRAST: IV 100mL [id number] COMPARISON: No relevant prior studies available. FINDINGS: PULMONARY ARTERIES: Unremarkable. Normal in caliber. No evidence of pulmonary embolism. AORTA: Unremarkable. Normal in caliber. No evidence of dissection. GREAT VESSELS OF AORTIC ARCH: Unremarkable. Normal in caliber. No evidence of dissection. LUNGS AND PLEURAL SPACES: Unremarkable. No mass. No consolidation or edema. No pleural effusion or thickening. No pneumothorax. HEART: Unremarkable. Heart size is normal. No pericardial effusion. No significant coronary artery calcifications. MEDIASTINUM: Unremarkable. No mediastinal or hilar adenopathy. Esophagus is unremarkable. No hiatal hernia. THYROID: Unremarkable. No thyroid lesions. BONES/JOINTS: Unremarkable. No suspicious lytic or blastic abnormality. CT/CTA Chest W/WO Contrast IMPRESSION: Negative CTA chest. Electronically Signed: Sarah Oscar MD at 16:49 EDT Reading Location ID and State: [id number] / Tel , Service support ,
--- NOTE | 2023-07-17 15:49 | ED.RN ---
PT STATES SHE HAS TO GO HOME TO HER KIDS. THIS RN TOLD PT THAT CT SCAN OF CHEST WAS ORDERED. PT ATTEMPTING TO FIND HELP WITH KIDS-DELAY IN CT SCAN
[2023-07-17 16:05] LABS: Bedside Glucose 84 mg/dL (74-106)
[2023-07-17 16:07] LABS: Reflex Troponin-HS? (from REC) Y
--- NOTE | 2023-07-17 16:24 | ED.RN ---
PT UPSET STATING HER CHILD IS AT BUS STOP AND OTHER 4 KIDS ARE WITH NEIGHBOR WITH NO CAR. PT WANTS CT SCAN AND CALLED WITH RESULTS, TOLD PT WE DO NOT DO THAT. PT AGREEABLE TO CT SCAN AT THIS TIME
[2023-07-17 16:48] VITALS: RESP 16
[2023-07-17 17:01] LABS: Troponin-I HS < 3 pg/mL (3.0-54.0)
== END 2023-07-17 17:21 | disposition home or self-care (01) ==
PROVIDERS: Nurse Practitioner; Emergency Provider Emergency Medicine; PCP Internal Medicine; Visit Provider Emergency Medicine
DX: R55 Syncope and collapse (principal); R07.9 Chest pain, unspecified; F41.9 Anxiety disorder, unspecified; R79.89 Other specified abnormal findings of blood chemistry; M79.601 Pain in right arm; M79.602 Pain in left arm; Z79.899 Other long term (current) drug therapy; Z87.891 Personal history of nicotine dependence
CPT/HCPCS: 71045; 71275; 80048; 82962; 84484; 85025; 85379; 93005; 99283; A4216

== ENCOUNTER → 2023-12-07 | Outpatient (CLI) | payer MEDICAID, SELFPAY ==
[2023-12-07 12:11] LABS: Erythrocyte Sedimentation Rate 8 mm/hr (0-30)
[2023-12-07 12:13] LABS: Absolute Lymphocyte Count 3.17 X10^3/uL (0.83-4.51); Basophil# 0.04 X10^3/uL; Basophil% 0.6 % (0-1); Eosinophil# 0.17 X10^3/uL; Eosinophils% 2.5 % (0-5); Hematocrit 44.9 % (37-47); Lymphocyte # 3.17 X10^3/ul (0.83-4.51); Lymphocyte % 45.9 % (19-41); Mean Corp Hgb Conc 33.4 g/dL (32-36); Mean Corpuscular Hgb 29.2 pg (27.0-32.0); Mean Corpuscular Volume 87.5 fL (81-99); Mean Platelet Vol. 9.8 fl (6.2-12.0); Monocyte# 0.52 X10^3/uL; Monocyte% 7.5 % (0-10); NRBC Flagged by Analyzer 0 % (0-5); Neutrophil % 43.4 % (47-70); Platelet Count 216 K/mm3 (150-450); RBC Distribution Width CV 12.8 % (11.6-14.6); RBC Distribution Width SD 40.7 fl (35.1-43.9); Red Blood Count 5.13 M/mm3 (4.2-5.4); White Blood Count 6.9 K/mm3 (4.4-11.0)
[2023-12-07 12:33] LABS: AST(SGOT) 17 U/L (15-37); Alanine Aminotransfer ALT/SGPT 28 U/L (13-56); Albumin, Serum 3.6 g/dL (3.2-5.0); Alkaline Phosphatase 84 U/L (45-117); Anion Gap 4 (5-15); BUN 12 mg/dL (7-18); Calcium,Total 8.9 mg/dL (8.5-10.1); Chloride 108 mmol/L (98-107); Cholesterol 177 mg/dL (200); Creatinine, Serum 0.86 mg/dL (0.55-1.02); EST Glomerular Filtration Rate 80 mL/min (>60); Est Glom Filt Rate - Afr Amer 96 mL/min (>60); Globulin 3.5 g/dL (2.2-4.2); Glucose 106 mg/dL (74-106); High Density Lipoprotein 33 mg/dL; Potassium 4.2 mmol/L (3.5-5.1); Protein, Total 7.1 g/dL (6.4-8.2); Sodium Level 141 mmol/L (136-145); Triglycerides 192 mg/dL; Very Low Density Lipoprotein 38 mg/dL (5-40)
== END | disposition home or self-care (01) ==
LOC: BIMLAB 10:53
PROVIDERS: PCP Internal Medicine; Referring Provider Physician Assistant; Visit Provider Physician Assistant
DX: R42 Dizziness and giddiness (principal); E66.9 Obesity, unspecified; E28.2 Polycystic ovarian syndrome
CPT/HCPCS: 36415; 80053; 80061; 84443; 85025; 85652

== ENCOUNTER → 2024-01-15 | Outpatient (CLI) | payer MEDICAID, SELFPAY ==
[2024-01-15 16:18] LABS: Vitamin B12 411 pg/mL (211-911)
[2024-01-15 16:21] LABS: Internal QC Validated? YES +Cl - CLEAR BKGD; Pregnancy, Serum, hCG Quali. POSITIVE Negative
[2024-01-15 16:46] LABS: Anion Gap 6 (5-15); BUN 8 mg/dL (7-18); Calcium,Total 8.9 mg/dL (8.5-10.1); Chloride 108 mmol/L (98-107); EST Glomerular Filtration Rate 87 mL/min (>60); Est Glom Filt Rate - Afr Amer 105 mL/min (>60); Glucose 157 mg/dL (74-106); Potassium 3.9 mmol/L (3.5-5.1); Sodium Level 138 mmol/L (136-145)
== END | disposition home or self-care (01) ==
LOC: BIMLAB 12:05
PROVIDERS: PCP Physician Assistant; Visit Provider Nurse Practitioner
DX: R20.2 Paresthesia of skin (principal)
CPT/HCPCS: 36415; 80048; 82607; 83735; 84703

== ENCOUNTER 2024-02-07 12:27 | Emergency (ER) | payer MEDICAID, SELFPAY ==
[2024-02-07 12:28] VITALS: BP 121/82; PULSE 85; RESP 14; TEMP 36.8; O2SAT 99; BMI 37.1
--- NOTE | 2024-02-07 12:56 | EKG12_ITS ---
Test Reason : Blood Pressure : / mmHG Vent. Rate : 067 BPM Atrial Rate : 067 BPM P-R Int : 174 ms QRS Dur : 086 ms QT Int : 396 ms P-R-T Axes : 037 016 022 degrees QTc Int : 418 ms Normal sinus rhythm Normal ECG Confirmed by Braxton Girard ([id number]), associate editor MARCELLA LUCIANO ([id number]) on 02/08/2024 11:00:58 AM Referred By: Confirmed By:Braxton Girard
[2024-02-07 13:04] LABS: Absolute Neutrophil Count 4.2 X10^3/uL (2.0-7.7); Basophil# 0.05 X10^3/uL; Basophil% 0.7 % (0-1); Eosinophil# 0.13 X10^3/uL; Eosinophils% 1.9 % (0-5); Hemoglobin 14.2 g/dL (12.0-15.0); Lymphocyte % 31.7 % (19-41); Mean Corp Hgb Conc 33.8 g/dL (32-36); Mean Corpuscular Hgb 29.2 pg (27.0-32.0); Mean Corpuscular Volume 86.4 fL (81-99); Mean Platelet Vol. 9.8 fl (6.2-12.0); Monocyte# 0.39 X10^3/uL; Monocyte% 5.6 % (0-10); NRBC Flagged by Analyzer 0 % (0-5); Neutrophil # 4.16 X10^3/uL (2.7-7.7); Neutrophil % 59.8 % (47-70); Platelet Count 200 K/mm3 (150-450); Red Blood Count 4.86 M/mm3 (4.2-5.4)
--- NOTE | 2024-02-07 13:04 | ED.VIS.CHEST ---
HPI History of Present Illness Chief Complaint: Chest Pain Informant: patient Narrative Narrative: Patient presents around noon-1 PM for discomfort that started last night at 1130, felt like chest heaviness nonspecific without any other symptoms she went to sleep and woke up at 7:30 AM felt like something was squeezing her entire thorax, with discomfort throughout the chest and upper back, made her feel little short of breath because it felt restricted to breathe, no pleuritic discomfort. She Cologuard was recent at 1 point. This is before she even got out of bed, so she went back to sleep and woke up at 1030 feeling better, symptoms have gradually resolved, she states she felt a little bit of discomfort when she walked earlier but for the most part she feels better now while resting here. She states she was diagnosed with SVT in the past and had RFA for this, and was also diagnosed with a cardiomyopathy with an ejection fraction that was around 12% but this was years ago. She denies any fluid retention or orthopnea recently. Also states that she has been told she is 5 weeks right now. [facility] Medical History (Updated 02/07/24 @ 15:[address] Gadiel Bartlett MD) Arrhythmia Crushing injury of left thumb Difficulty balancing Dysuria Gave to child recently Heart disease Hemorrhoids History of cardiomyopathy History of pre-term labor Limb weakness Lumbar radiculopathy neck/back pain PCOS (polycystic ovarian syndrome) Scabies Severe headache (spontaneous vaginal delivery) UTI (urinary tract infection) Vaginal discharge Home Medications buprenorphine HCl 8 mg sublingual tablet 16 mg sublingual DAILY Check with primary doctor 04/10/23 [History Last Taken 04/09/23] gaizdsmm-[id number]-FA 1 mg tablet 1 tab PO DAILY 04/10/23 [History Last Taken 04/09/23 20:00] acetaminophen 500 mg tablet 1,000 mg (2 x 500 mg) PO Q6H PRN PRN Pain 1-10 Or Fever #0 tabs 04/12/23 [Rx Last Taken Unknown] Allergy/AdvReac Type Severity Reaction Status Date / Time ciprofloxacin Allergy Unknown unknown Verified 02/07/24 12:27 cyclobenzaprine Allergy Swelling Verified 02/07/24 12:27 [From Flexeril] Penicillins Allergy Swelling Verified 02/07/24 12:27 Family History Father Cancer Mother Afib Fibromyalgia Surgical History History of D&C History of radiofrequency ablation (RFA) procedure for cardiac arrhythmia Social History Smoking Status: Unknown if ever smoked Tobacco: How many years used: 2 second hand exposure: No alcohol intake: never substance use type: does not use what type of physical activity do you participate in: none ROS ROS ED Constitutional Constitutional ED: Denies chills or fever(s) Eyes Eyes: Denies change in vision or diplopia ENT ENT ED: Denies rhinorrhea or sore throat Cardiovascular Cardiovascular: Reports chest pain and racing heartbeat; Denies palpitations Respiratory/Chest Respiratory/Chest: Reports dyspnea; Denies cough Gastrointestinal Gastrointestinal: Denies abdominal pain, diarrhea, nausea or vomiting Genitourinary Genitourinary ED: Denies dysuria or hematuria Musculoskeletal Musculoskeletal: Denies back pain or neck pain Integumentary Denies abscess or rash Neurologic Neurologic: Denies headache(s), paresthesias or weakness Psychiatric Psychiatric: Reports anxiety; Denies suicidal ideation or suicidal thoughts EXAM Physical Exam Const Vital Signs: 02/07/24 12:28 02/07/24 12:47 02/07/24 14:27 Temperature 98.3 F Temperature Source Temporal Pulse Rate 85 78 Respiratory Rate 14 16 Respiratory Effort Normal Non-Labored Blood Pressure 121/82 H 111/73 Blood Pressure Mean 95 85 Pulse Ox 99 98 Oxygen Delivery Method Room Air 02/07/24 12:56 Temperature Temperature Source Pulse Rate Respiratory Rate Respiratory Effort Blood Pressure Blood Pressure Mean Pulse Ox Oxygen Delivery Method Room Air Positive well nourished and well developed General Appearance ED: well developed and NAD HEENT Reports moist mucous membranes normocephalic and atraumatic Eyes PERRL and EOMs intact bilaterally Neck full ROM and supple Resp normal respiratory effort and clear to auscultation bilaterally Cardio regular rate, regular rhythm and no murmurs GI non-tender and non-distended Auscultation: normoactive bowel sounds Palpation: soft Back/Spine no CVA tenderness General Back: other FROM Extremity normal to inspection General Extremety ED: Negative for edema, pulses abnormal or tenderness General Extremity: Negative for edema or pulses abnormal Neuro oriented x3, CN's II-XII intact bilaterally and no sensory deficits noted Sensorium / Orientation: awake and alert Motor Exam: strength 5/5 throughout Skin no rashes or lesions noted and no wounds MDM MDM MDM Narrative Medical decision making narrative: Initial cardiac workup is negative, her EKG is normal and her initial troponin measurement is normal as well. 2 view chest x-ray my interpretation is normal. Her initial measurement is less than 3, making acute coronary syndrome very unlikely. 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 Her risk is very low I do not think she needs to be discharged AMA. Differential here includes musculoskeletal etiologies including esophageal spasm or other intrathoracic nonemergent issues. Anxiety in the differential, but I am not diagnosing her with that as we discussed. Patient advised to follow-up with her doctor she is comfortable with that plan. Lab Data Attestation: I reviewed the patient's lab results. Labs: Laboratory Results - last 24 hr 02/07/24 12:45 WBC 7.0 RBC 4.86 Hgb 14.2 Hct 42.0 MCV 86.4 MCH 29.2 MCHC 33.8 RDW Std Deviation 41.0 RDW Coeff of Keyanna 13.0 Plt Count 200 MPV 9.8 Immature Gran % (Auto) 0.300 Neut % (Auto) 59.8 Lymph % (Auto) 31.7 [place] % (Auto) 5.6 Eos % (Auto) 1.9 Baso % (Auto) 0.7 Absolute Neuts (auto) 4.2 Absolute Lymphs (auto) 2.20 Nucleated RBC % 0 Sodium 134 L Potassium 3.7 Chloride 108 H Carbon Dioxide 23.0 Anion Gap 3 L BUN 9 Creatinine 0.78 Estim Creat Clear Calc 122.91 Est GFR (MDRD) Af Amer 108 Est GFR (MDRD) Non-Af 89 BUN/Creatinine Ratio 11.6 Glucose 198 H Calcium 8.6 Troponin I High Sens < 3 L Radiography Diagnostic Testing: Clinical Impression(s) from Imaging Studies Chest X-Ray 02/07/24 13:12 IMPRESSION: Normal x-ray examination of the chest. Electronically Signed: Jayson Bowman MD at 13:34 EDT , Rhythm Strip Rhythm Strip: Sinus Rhythm Rate: 65 Ectopy: None EKG Initial EKG: Attestation: I personally reviewed and interpreted this EKG as follows: Interpretation: Sinus Rhythm and No Acute Injury Pattern Comments: normal EKG Discharge Plan Triage Chief Complaint: Chest Pain ED Provider: Gadiel Bartlett Dx/Rx/DC Orders Clinical Impression: Chest pain Instructions: ED Chest Pain, Uncertain Cause Prescriptions: No Action uxaxzrwn-ham-[id number]-FA 1 mg Tablet 1 tab PO DAILY buprenorphine HCl 8 mg Tablet, Sublingual 16 mg SUBLINGUAL DAILY acetaminophen 500 mg Tablet 1,000 mg PO Q6H PRN PRN (Reason: Pain 1-10 Or Fever) Qty: 0 0RF Primary Care Provider: Schuyler Becker Referrals: Schuyler Becker PA [Primary Care Provider] - Doctor,Your [Non-Staff] - 3-5 Days if not improving Disposition Disposition: Home, Self Care
--- NOTE | 2024-02-07 13:12 | RAD_ITS ---
STUDY: X-RAY CHEST REASON FOR EXAM: Female, 33 years old. Chest pain TECHNIQUE: PA and lateral views of the chest. COMPARISON: Comparison is made with prior study of July 17, 2023. FINDINGS: EKG electrodes are seen. The lungs are clear and expanded. There is no demonstrated pleural abnormality. Normal size heart. Normal mediastinum and ning. Normal visualized pulmonary arteries. Normal visualized aortic arch and descending thoracic aorta. Normal visualized thoracic spine. Normal visualized ribs, clavicles, and shoulders. There is no demonstrated abnormality of the visualized soft tissue structures of the upper abdomen. RAD/Chest PA and Lateral IMPRESSION: Normal x-ray examination of the chest. Electronically Signed: Jayson Bowman MD at 13:34 EDT ,
[2024-02-07 13:23] LABS: Anion Gap 3 (5-15); BUN 9 mg/dL (7-18); BUN/Creat Ratio 11.6 RATIO (10-20); Calcium,Total 8.6 mg/dL (8.5-10.1); Chloride 108 mmol/L (98-107); Creatinine, Serum 0.78 mg/dL (0.55-1.02); EST Glomerular Filtration Rate 89 mL/min (>60); Est Glom Filt Rate - Afr Amer 108 mL/min (>60); Estimated Creatinine Clearance 122.91 ml/min; Glucose 198 mg/dL (74-106); Potassium 3.7 mmol/L (3.5-5.1); Sodium Level 134 mmol/L (136-145); Troponin-I HS (w/2H Reflex) < 3 pg/mL (3.0-54.0)
[2024-02-07 14:27] VITALS: BP 111/73; PULSE 78; RESP 16; O2SAT 98
[2024-02-07 15:01] LABS: Reflex Troponin-HS? (from REC) Y
[2024-02-07 15:38] VITALS: BP 117/86; PULSE 79; RESP 18; TEMP 36.6; O2SAT 98
[2024-02-07 16:11] LABS: Troponin-I HS < 3 pg/mL (3.0-54.0)
== END 2024-02-07 15:39 | disposition home or self-care (01) ==
PROVIDERS: Emergency Provider Emergency Medicine; PCP Physician Assistant; Visit Provider Emergency Medicine
DX: O26.891 Other specified pregnancy related conditions, first trimester (principal); R07.9 Chest pain, unspecified; Z3A.01 Less than 8 weeks gestation of pregnancy
CPT/HCPCS: 71046; 80048; 84484; 85025; 93005; 99284; A4216

== ENCOUNTER 2024-09-02 08:00 | Inpatient (IN) | payer MEDICAID, SELFPAY ==
[2024-09-02] VITALS (43 sets, daily range): BP systolic 107–140; BP diastolic 63–92; PULSE 59–90; RESP 16; TEMP 36.4–36.8; O2SAT 92–100; BMI 36.6
--- NOTE | 2024-09-02 08:18 | PCM.HP.OB ---
HPI - General General Date of Admission: 09/02/24 HPI Narrative CAYDEN WAITE, is a 34 F who presents with [place] 09/23/24 with induction of labor for GDMA1. Maternal Data Information [place] Calculator Estimated Delivery Date Method Current WG Current Estimate 09/23/24 Manual 37w 0d PFSH PFSH Medical History (Updated 09/02/24 @ 08:42 by Brie Boss CNM) Tooth infection MRSA infection Substance abuse Insulin dependent diabetes mellitus Restless legs Dietary restriction Former smoker History of edema History of echocardiogram Cardiomyopathy Atrial tachycardia Opioid dependence (spontaneous vaginal delivery) History of pre-term labor History of cardiomyopathy Lumbar radiculopathy PCOS (polycystic ovarian syndrome) UTI (urinary tract infection) Dysuria Vaginal discharge Scabies Gave to child recently Crushing injury of left thumb Arrhythmia neck/back pain Limb weakness Difficulty balancing Severe headache Heart disease Hemorrhoids Home Medications ?Medication ?Instructions ?Recorded ?Last Taken ?Type buprenorphine HCl 8 mg sublingual 16 mg sublingual DAILY Check with 04/10/23 04/09/23 History tablet primary doctor baghztxf-uic-To-FA 1 mg 1 tab PO DAILY 04/10/23 04/09/23 20:00 History tablet acetaminophen 500 mg tablet 1,000 mg (2 x 500 mg) PO Q6H PRN 04/12/23 Unknown Rx PRN Pain 1-10 Or Fever #0 tabs fluticasone propionate 50 1 spray intranasal BID #16 grams 02/11/24 Unknown Rx mcg/actuation nasal spray,suspension (Flonase Allergy Relief) Allergy/AdvReac Type Severity Reaction Status Date / Time ciprofloxacin Allergy Unknown unknown Verified 09/02/24 07:59 cyclobenzaprine (From Allergy Swelling Verified 09/02/24 07:59 Flexeril) Penicillins Allergy Swelling Verified 09/02/24 07:59 Family History Father Cancer Mother Afib Fibromyalgia Surgical History History of D&C History of radiofrequency ablation (RFA) procedure for cardiac arrhythmia Social History Smoking Status: Former smoker Tobacco: How many years used: 2 second hand exposure: No alcohol intake: never substance use type: does not use what type of physical activity do you participate in: none History Elective abortions Hx Para 5 Spontaneous abortions Hx # Term Pregnancies Ectopic pregnancies Hx # Pregnancies Multiple births # of living children ROS Constitutional Constitutional: Reports systems reviewed and no addt'l complaints, except as documented; Denies headache(s) Eyes Eyes: Denies acute decrease in peripheral vision, blurry vision or change in vision ENT HEENT: Reports systems reviewed and no addt'l complaints, except as documented Cardiovascular Cardiovascular: Denies chest pain or dizziness Respiratory/Chest Respiratory/Chest: Denies cough, dyspnea, dyspnea on exertion, shortness of breath at rest or shortness of breath with exertion Gastrointestinal Gastrointestinal: Denies abdominal pain, diarrhea, nausea or vomiting Genitourinary Genitourinary: Denies abdominal discomfort Musculoskeletal Musculoskeletal: Denies limited range of motion Integumentary Integumentary: Reports systems reviewed and no addt'l complaints, except as documented Neurologic Neurologic: Reports systems reviewed and no addt'l complaints, except as documented Psychiatric Psychiatric: Reports systems reviewed and no addt'l complaints, except as documented Endocrine Endocrinology: Reports systems reviewed and no addt'l complaints, except as documented Hematologic/Lymphatic Hematologic/Lymphatic: Reports systems reviewed and no addt'l complaints, except as documented Allergic/Immunologic Allergic/Immunologic: Reports systems reviewed and no addt'l complaints, except as documented Vital Signs Vital Signs Vital Signs: Weight Weight: 227 lb Body Mass Index (BMI) 36.6 Physical Exam Const alert and oriented x3 General Appearance: cooperative Orientation / Consciousness: awake, oriented to person, oriented to place and oriented to time Exam Limitations: no limitations HEENT normocephalic Head and Scalp: normal to inspection, normocephalic and atraumatic Face and Sinus: normal facial exam Eyes General Eye: normal appearance of both eyes Neck full ROM Chest Chest: symmetrical chest wall rise Resp normal respiratory effort and normal air movement Auscultation: clear to auscultation bilaterally Cardio regular rate, regular rhythm, S1 normal heart sound, S2 normal heart sound, no murmurs, no rub, no gallops and no clicks GI normal to inspection, nondistended, normoactive bowel sounds and non-tender appearance of the vagina normal Bladder / Kidney Exam: no CVA tenderness Manual OB Exam: presentation cephalic, dilated 3cm, effaced 60 and station -3 Back/Spine normal ROM Extremity normal to inspection and full ROM Skin no rashes or lesions noted Neuro oriented x3, CN's II-XII intact bilaterally and moves all extremities Sensorium / Orientation: awake, alert and oriented to person Motor Exam: clonus absent Deep Tendon Reflexes: Rt Patellar (L4): 2+ and Lt Patellar (L4): 2+ Labs Labs Labs: Blood Type A POSITIVE Antibody Screen NEGATIVE Hct 40.3 % (37-47) Hgb 13.5 g/dL (12.0-15.0) Obstetrics Ultrasound Syphilis Total Ab Non-reactive Miscellaneous Test RPR nonreactive Rubella positive HBsAG negative HepC negative HIV negative A Positive GC/CT negative GBS negative Assessment & Plan (1) Encounter for induction of labor: (2) GDM, class A1: (3) Advanced maternal age (AMA) in : (4) Anxiety: (5) History of depression: (6) History of cardiomegaly: (7) History of precipitous delivery: (8) Penicillin allergy: (9) History of thyroid disorder: (10) History of pre-eclampsia: (11) History of trauma: PLAN: Plan 1) Admit to labor and delivery 2) Routine labs 3) Continuous EFM 4) Pain management upon request 5) Diabetic protocol 6) Pitocin for induction of labor 7) collaborative physician and notified of patient status, above assessment, and plan. Management and delivery with .
[2024-09-02 08:34] LABS: Absolute Neutrophil Count 5.4 X10^3/uL (2.0-7.7); Basophil# 0.04 X10^3/uL; Basophil% 0.5 % (0-1); Eosinophil# 0.11 X10^3/uL; Eosinophils% 1.3 % (0-5); Hematocrit 40.3 % (37-47); Hemoglobin 13.5 g/dL (12.0-15.0); Lymphocyte % 28.8 % (19-41); Mean Corp Hgb Conc 33.5 g/dL (32-36); Mean Corpuscular Hgb 30.5 pg (27.0-32.0); Mean Corpuscular Volume 91.2 fL (81-99); Mean Platelet Vol. 11.3 fl (6.2-12.0); Monocyte# 0.53 X10^3/uL; Monocyte% 6.1 % (0-10); NRBC Flagged by Analyzer 0 % (0-5); Neutrophil # 5.43 X10^3/uL (2.7-7.7); Neutrophil % 62.5 % (47-70); Platelet Count 158 K/mm3 (150-450); RBC Distribution Width CV 14.7 % (11.6-14.6); RBC Distribution Width SD 48.6 fl (35.1-43.9); Red Blood Count 4.42 M/mm3 (4.2-5.4); White Blood Count 8.7 K/mm3 (4.4-11.0)
[2024-09-02 08:46] LABS: Amphetamine Urine VISTA NEGATIVE (<1000 ng/mL); Barbiturate Urine VISTA NEGATIVE (< 200 ng/mL); Benzodiazepine Urine VISTA NEGATIVE (< 200 ng/mL); Cocaine Urine VISTA NEGATIVE (< 300 ng/mL); Ecstacy Urine VISTA NEGATIVE (< 500 ng/mL); Methadone Urine VISTA NEGATIVE (< 300 ng/mL); PCP Urine VISTA NEGATIVE (< 25 ng/mL); THC Urine VISTA NEGATIVE (< 50 ng/mL); Vista UDS pH Range 6
[2024-09-02 09:10] LABS: Bedside Glucose 71 mg/dL (74-106)
[2024-09-02 09:28] LABS: Syphilis Antibodies Non-reactive
[2024-09-02] MEDS: Lactated Ringers 1,000 ML 50 ML IV (09:36)
[2024-09-02] MEDS: Oxytocin 15 Units/NS 250ml 15 UNITS/250 ML IV.SOLN 2 UNITS IV (09:36)
[2024-09-02] MEDS: VIAFLEX EPIDURAL (12:00)
[2024-09-02] MEDS: NORMAL SALINE EPIDURAL (12:00)
[2024-09-02] MEDS: BUPIVACAINE MPF EPIDURAL (12:00)
[2024-09-02 12:51] LABS: Bedside Glucose 79 mg/dL (74-106)
--- NOTE | 2024-09-02 13:06 | PN.OBGYN_ITS ---
Subjective Subjective Resting in bed with epidural, partner at bedside. Objective Data Objective Data Vital Signs: Vital Signs Temp Pulse Resp BP Pulse Ox 98.1 F 74 16 128/73 H 100 09/02/24 08:19 09/02/24 12:35 09/02/24 12:35 09/02/24 12:35 09/02/24 12:32 Weight: 227 lb Body Mass Index (BMI) 36.6 Lab / Micro Data 09/02/24 08:10 Labs: Laboratory Results - last 24 hr 09/02/24 08:10: WBC 8.7, RBC 4.42, Hgb 13.5, Hct 40.3, MCV 91.2, MCH 30.5, MCHC 33.5, RDW Std Deviation 48.6 H, RDW Coeff of [place] 14.7 H, Plt Count 158, MPV 11.3, Immature Gran % (Auto) 0.800, Neut % (Auto) 62.5, Lymph % (Auto) 28.8, [place] % (Auto) 6.1, Eos % (Auto) 1.3, Baso % (Auto) 0.5, Absolute Neuts (auto) 5.4, Absolute Lymphs (auto) 2.50, Nucleated RBC % 0, Urine Opiates Screen NEGATIVE, Urine Methadone Screen NEGATIVE, Ur Barbiturates Screen NEGATIVE, Ur Phencyclidine Scrn NEGATIVE, Ur Amphetamines Screen NEGATIVE, MDMA (Ecstasy) Screen NEGATIVE, U Benzodiazepines Scrn NEGATIVE, Urine Cocaine Screen NEGATIVE, U Cannabinoids Screen NEGATIVE, Ur Drug Screen Comment , Syphilis Total Ab Non-reactive, Blood Type A POSITIVE, Antibody Screen NEGATIVE 09/02/24 08:36: POC Glucose 71 L 09/02/24 12:20: POC Glucose 79 Physical Exam Manual OB Exam: presentation cephalic, dilated 6, effaced 60, station -1 and other arom clear fluid NST FHR Rate Baby A Baseline: 125 Variability:: Moderate Accelerations:: 15 x 15 Decelerations:: None FHR Category:: Category I Uterine Activity:: every 2-4 minutes Assessment & Plan (1) History of trauma: (2) History of pre-eclampsia: (3) History of thyroid disorder: (4) Penicillin allergy: (5) History of precipitous delivery: (6) History of cardiomegaly: (7) Advanced maternal age (AMA) in : (8) GDM, class A1: (9) Encounter for induction of labor: (10) 37 weeks gestation of : PLAN: Plan 1) Category 1 EFM 2) Epidural effective for pain relief 3) AROM clear fluid 4) Dr. Goff updated on above patient status, assessment and plan
[2024-09-02] MEDS: buprenorphine HCL 8 MG TAB.SUBL SL ×2 (13:59→17:16)
[2024-09-02 15:11] LABS: Bedside Glucose 108 mg/dL (74-106)
[2024-09-02] MEDS: Oxytocin 15 Units/NS 250ml 15 UNITS/250 ML IV.SOLN 83 UNITS IV (15:25)
--- NOTE | 2024-09-02 15:46 | EX.PCM.OBVAG ---
Assessment & Plan (1) Grand multipara in labor in third trimester: (2) (spontaneous vaginal delivery): (3) High risk multigravida in third trimester: (4) Gestational diabetes requiring insulin: (5) 37 weeks gestation of : (6) Advanced maternal age (AMA) in : (7) Encounter for induction of labor: (8) Obesity affecting : (9) Opiate use: Maternal Data Information [place] Calculator Estimated Delivery Date Method Current WG Current Estimate 09/23/24 Manual 37w 0d Final [place]: 09/23/24 Gestational age: 37 0/7 Vaginal Delivery Maternal Presentation Maternal Presentation: Medically Indicated Induction Medical Reason for Induction: Other (poorly controlled GDM on insulin) Vaginal Delivery Information Procedure Performed: Spontaneous Vaginal Delivery Surgeon/Practitioner: Beatriz Goff Date of Procedure: 09/02/24 Pre-Procedure Diagnosis: labor Post-Procedure Diagnosis: same Type of anesthesia: Epidural Special Medications: none Estimated Blood Loss: 200 Time of Delivery: 15:24 Findings Description of procedure: A vigorous female infant was delivered SHAHANA over an intact perineum. The delivered quickly and easily through the loose nuchal cord x 1. The remainder the was delivered with maternal pushing and gentle traction only in less than 15 seconds. The Pitocin infusion was initiated for active management of the third stage. The cord was clamped and cut after cord pulsations ceased. The infant was attended to by the waiting nursing staff. The placenta was delivered spontaneously and intact. The cervix and vagina were intact. Sponge and needle counts were correct. A vaginal sweep was completed by me. Presentation: SHAHANA Amniotic Membrane Rupture Type: Artificial Amniotic Fluid Description: Clear Placental Delivery Description: Spontaneous Placenta Disposition: Sent to Pathology Specimen collected: No Cord Vessel Description: 3 Vessels Cord Entanglement: Around neck x 1, loose Nuchal Cord Compression: Without compression Infant A Gender: Female (1 minute): 8 (5 minute): 9 Delayed Cord Clamping: Yes Mining Engineering Technologist electromechanical assembler: No Post Vaginal Deli Medications given after delivery: IV Pitocin Episiotomy Description: None Laceration: None Complication Complications: No
[2024-09-02 16:41] LABS: Bedside Glucose 97 mg/dL (74-106)
--- NOTE | 2024-09-02 16:47 | PLAC_PTH ---
PATIENT: CAYDEN WAITE LOC: [facility] U#:[id number] AGE/SX: 34/F ROOM: [facility] RE09/02/[address]: Dr. Beatriz Goff MD : 1990 BED: 1 DIS: 09/04/2024 SPEC #: [id number] RECD: 09/02/24 23:06 STATUS: KAREN WONG #: [id number] JIMY: 09/02/24 16:[address]: Beatriz Goff DEPT: SURGICAL PATHOLOGY RECD BY: Braxton Haddad ENTERED: 09/03/24 09:54 SP TYPE: PLACENTA OTHR DR: REYNA Townsend Tissues: Placenta, NOS Procedures: Surgery Specimen Level V HEADER OPERATION: Vaginal delivery PRE-OP DIAGNOSIS: Diabetes TISSUE SUBMITTED: Placenta MICROSCOPIC DIAGNOSIS Placenta: Placental disc - third trimester placenta (492 gm). Membranes - no pathologic diagnosis. Umbilical cord - three blood vessels and no pathologic diagnosis. SJ: 09/05/2024 MICROSCOPIC DESCRIPTION Slides are reviewed. GROSS DESCRIPTION SPECIMEN: PLACENTA / CLINICAL INFORMATION: A. Weight: 3.05 kg B. Gestational Age: 37 weeks C. Sex: Female PLACENTAL WEIGHT (POST FIXATION): 492 gm PLACENTAL DIMENSIONS: 16.0 x 16.0 x 3.0 cm PLACENTAL SHAPE: Usual ovoid PLACENTAL WEIGHT FOR GESTATIONAL AGE: Within 10-99th percentile MEMBRANES - Present A. Insertion: Marginal B. Site of rupture from edge: at the margin of placental disc C. Color of membrane: [place] D. Abnormalities: None UMBILICAL CORD - Present A. Color: Hernandez[place] B. Insertion: Central C. Length: 35.0cm D. Diameter: 1.1 cm E. Number of vessels: Three F. Abnormalities: None PLACENTAL DISC - Present A. Color of surface: [place] B. surface abnormalities: None C. Maternal cotyledons: Intact with minimal tears D. Attached retro placental clot: No clot E. Cut surface: Dark red and spongy F. Lesions: None G. Separate clot: At the site of detached blood clot are multiple blood clots noted measuring in aggregate 8.0 x 8.0 x 2.0cm and weighing 31gm. SECTIONS SUBMITTED: (6 cassettes) 1. Membrane roll 2. Cord, maternal end 3. Cord, end 4. Placental disc, and maternal surfaces 5. Placental disc, and maternal surfaces 6. Placental disc, and maternal surfaces SJ.mr 09/04/2024 TC:4 CPT: 32711
[2024-09-02] MEDS: Acetaminophen 500 MG Tablet 1000 MG PO (17:13)
[2024-09-02 23:11] LABS: Pathology Specimen OB SEE PATHOLOGY REPORT
[2024-09-03] MEDS: Acetaminophen 500 MG Tablet 1000 MG PO ×4 (02:18→20:43)
[2024-09-03] MEDS: Benzocaine/Lanolin/Aloe Vera 85 GM Spray 1 SPRAY TOPICAL (02:19)
[2024-09-03] MEDS: Ibuprofen 600 MG Tablet PO ×4 (02:19→20:43)
--- NOTE | 2024-09-03 02:46 | NURSING ---
patient verbally refusing fasting blood sugar. states she has been eating all night and is not doing one
[2024-09-03 05:18] VITALS: BP 106/75; PULSE 69; RESP 16; TEMP 36.9; O2SAT 96
[2024-09-03 08:21] VITALS: BP 123/80; PULSE 64; RESP 16; TEMP 36.5; O2SAT 95
--- NOTE | 2024-09-03 08:23 | PCM.PN.OB ---
Subjective Subjective Doing well. Ambulating and voiding without difficulty. Mild lochia. Breast feeding. Objective Data Objective Data Vital Signs: Vital Signs Temp Pulse Resp BP Pulse Ox O2 Del Method 97.7 F L 64 16 123/80 H 95 Room Air 09/03/24 08:21 09/03/24 08:21 09/03/24 08:21 09/03/24 08:21 09/03/24 08:21 09/03/24 08:21 Oxygen Delivery Method Room Air Weight: 102.965 kg Body Mass Index (BMI) 36.6 Intake & Output: Intake and Output for Last 24 Hours 09/01/24 09/02/24 09/03/24 23:59 23:59 23:59 Intake Total 571.17 / 571.17 Output Total 900 / 900 Balance -328.83 / -328.83 Lab / Micro Data 09/02/24 08:10 Labs: Laboratory Results - last 24 hr 09/02/24 08:10: WBC 8.7, RBC 4.42, Hgb 13.5, Hct 40.3, MCV 91.2, MCH 30.5, MCHC 33.5, RDW Std Deviation 48.6 H, RDW Coeff of [place] 14.7 H, Plt Count 158, MPV 11.3, Immature Gran % (Auto) 0.800, Neut % (Auto) 62.5, Lymph % (Auto) 28.8, [place] % (Auto) 6.1, Eos % (Auto) 1.3, Baso % (Auto) 0.5, Absolute Neuts (auto) 5.4, Absolute Lymphs (auto) 2.50, Nucleated RBC % 0, Urine Opiates Screen NEGATIVE, Urine Methadone Screen NEGATIVE, Ur Barbiturates Screen NEGATIVE, Ur Phencyclidine Scrn NEGATIVE, Ur Amphetamines Screen NEGATIVE, MDMA (Ecstasy) Screen NEGATIVE, U Benzodiazepines Scrn NEGATIVE, Urine Cocaine Screen NEGATIVE, U Cannabinoids Screen NEGATIVE, Ur Drug Screen Comment , Syphilis Total Ab Non-reactive, Blood Type A POSITIVE, Antibody Screen NEGATIVE 09/02/24 08:36: POC Glucose 71 L 09/02/24 12:20: POC Glucose 79 09/02/24 14:47: POC Glucose 108 H 09/02/24 16:19: POC Glucose 97 ROS Constitutional Constitutional: Denies fatigue, fever(s) or malaise Eyes Eyes: Denies change in vision ENT HEENT: Denies dizziness or headache(s) Cardiovascular Cardiovascular: Denies chest pain, dyspnea or lightheadedness Respiratory/Chest Respiratory/Chest: Denies cough or dyspnea Gastrointestinal Gastrointestinal: Denies change in bowel habits Genitourinary Genitourinary: Denies burning urination or genital lesions Integumentary Integumentary: Denies rash Neurologic Neurologic: Denies confusion, dizziness, headache(s), numbness or weakness Physical Exam Const alert and no apparent distress Narrative: Fundus firm, below umbilicus. Assessment & Plan (1) (spontaneous vaginal delivery): (2) Gestational diabetes requiring insulin:
[2024-09-03] MEDS: buprenorphine HCL 8 MG TAB.SUBL SL ×2 (09:38→17:33)
[2024-09-03 12:34] VITALS: BP 112/95; PULSE 88; RESP 16; TEMP 36.5; O2SAT 96
[2024-09-03 15:33] VITALS: BP 112/78; PULSE 82; RESP 14; TEMP 36.8; O2SAT 95
[2024-09-03 20:00] VITALS: BP 126/89; PULSE 88; RESP 16; TEMP 36.4; O2SAT 97
[2024-09-03 20:05] LABS: Bedside Glucose 78 mg/dL (74-106)
[2024-09-04 02:00] VITALS: BP 124/72; PULSE 63; RESP 18; TEMP 36.7; O2SAT 99
[2024-09-04] MEDS: Acetaminophen 500 MG Tablet 1000 MG PO ×3 (04:02→16:01)
[2024-09-04] MEDS: Ibuprofen 600 MG Tablet PO ×3 (04:03→16:00)
--- NOTE | 2024-09-04 07:47 | PCM.PN.OB ---
Subjective Subjective Doing well. Ambulating and voiding without difficulty. Mild lochia. Breast feeding. Objective Data Objective Data Vital Signs: Vital Signs Temp Pulse Resp BP Pulse Ox O2 Del Method 98.1 F 63 18 124/72 H 99 Room Air 09/04/24 02:00 09/04/24 02:00 09/04/24 02:00 09/04/24 02:00 09/04/24 02:00 09/04/24 02:00 Oxygen Delivery Method Room Air Weight: 102.965 kg Body Mass Index (BMI) 36.6 Intake & Output: Intake and Output for Last 24 Hours 09/02/24 09/03/24 09/04/24 23:59 23:59 23:59 Intake Total 571.17 / 571.17 Output Total 900 / 900 Balance -328.83 / -328.83 Lab / Micro Data 09/02/24 08:10 Labs: Laboratory Results - last 24 hr 09/03/24 11:56: POC Glucose 78 ROS Constitutional Constitutional: Denies fatigue, fever(s) or malaise Eyes Eyes: Denies change in vision ENT HEENT: Denies dizziness or headache(s) Cardiovascular Cardiovascular: Denies chest pain, dyspnea or lightheadedness Respiratory/Chest Respiratory/Chest: Denies cough or dyspnea Gastrointestinal Gastrointestinal: Denies change in bowel habits Genitourinary Genitourinary: Denies burning urination or genital lesions Integumentary Integumentary: Denies rash Neurologic Neurologic: Denies confusion, dizziness, headache(s), numbness or weakness Physical Exam Const alert and no apparent distress Narrative: Fundus firm, below umbilicus. Assessment & Plan (1) (spontaneous vaginal delivery): (2) Gestational diabetes requiring insulin: (3) Opiate use: PLAN: Plan Discharge to [facility] status
--- NOTE | 2024-09-04 07:48 | DS.PCM_ITS ---
Providers Date of Admission: 09/02/24 Date of Discharge: 09/04/24 Primary Care Physician: REYNA Townsend Reason For Visit: VAGINAL Diagnosis Discharge Diagnosis (1) (spontaneous vaginal delivery): Status: Acute Code(s): O80 - Encounter for full-term uncomplicated delivery (2) Gestational diabetes requiring insulin: Status: Acute Code(s): O24.414 - Gestational diabetes mellitus in , insulin controlled (3) Opiate use: Status: Acute Code(s): F11.90 - Opioid use, unspecified, uncomplicated Plan Discharge to [facility] status Medications at Discharge Home Medications buprenorphine HCl 8 mg sublingual tablet 16 mg sublingual DAILY Check with primary doctor 04/10/23 [id number] 1 mg tablet 1 tab PO DAILY 04/10/23 Hospital Course Operations None Procedures None Summary of Care Provided Minutes Spent on Discharge: 21 Hospital Course: IOL for uncontrolled GDM at term. . Breast feeding Physical Exam Const alert and no apparent distress Narrative: Fundus firm, below umbilicus. Weight / BMI Weight Weight: 102.965 kg Body Mass Index (BMI) 36.6 ABG / Lab / Microbiology Data 09/02/24 08:10 Laboratory: Laboratory Results - last 24 hr 09/03/24 11:56: POC Glucose 78 D/C Instructions May resume sexual activity in: 6 weeks Please Follow Up With: Beatriz Goff MD When: Follow up with our office in 1-2 and 6 weeks or as needed. [phone] Meaningful Use Info Meaningful Use Meaningful Use Diagnoses (Choose all that apply): None applicable Ischemic Stroke Statin Dosing Therapy Reference: STATIN DOSE THERAPY REFERENCE: * Patients > 75 years receive moderate or high dose statin therapy. * Patients 75 years or YOUNGER should receive HIGH intensity statin dose unless contraindicated. You will be required to document reason for non-treatment if statin daily dose does not meet guidelines. HIGH DOSE STATIN THERAPY DAILY Atorvastatin > than or = to 40 mg Rosuvastatin > than or = to 20 mg Amlodipine + Atorvastatin > than or = to 2.5/40 mg Ezetimibe + Simvastatin 10/80 mg Simvastatin 80mg Discharge Plan Admission Admit Date/Time: 09/02/24 08:00 Primary Reason for Your Visit: labor Attending Provider: Beatriz Goff Primary Care Provider: Schuyler Becker Discharge Orders/Prescriptions Prescriptions: Continued aqxwzgeo-svk-Ju-FA 1 mg Tablet 1 tab PO DAILY buprenorphine HCl 8 mg Tablet, Sublingual 16 mg SUBLINGUAL DAILY Referrals / Follow Up: Schuyler Becker PA [Primary Care Provider] - Disposition Disposition (needs filled in before D/C Order can be placed): Home, Self Care
[2024-09-04] MEDS: buprenorphine HCL 8 MG TAB.SUBL SL ×2 (09:22→17:00)
[2024-09-04 09:45] VITALS: BP 127/81; PULSE 69; RESP 16; TEMP 36.6; O2SAT 98
--- NOTE | 2024-09-04 10:05 | NURSING ---
0900 pt states that is cluster feeding over the last 2 hours- pt also states that the baby latches easily sucks for a few minutes then falls asleep at breast and that she keeps having to wake her up- offered support at the next feed- pt instructed to call either this nurse or for the next feed- pt not eager to ask for help and likes to nurse on her own- made aware that if she is struggling and feels comfortable that it is ok to ask for help.
[2024-09-04 16:00] VITALS: BP 116/78; PULSE 70; RESP 16; TEMP 36.7; O2SAT 96
[2024-09-04 17:06] LABS: Bedside Glucose 65 mg/dL (74-106)
--- NOTE | 2024-09-04 17:16 | NURSING ---
1600 educated pt on trying just one mild pain reliever instead of both tylenol and motrin always together at the same time- pt adamant about taking both and unwilling to try just one.
--- NOTE | 2024-09-04 17:18 | NURSING ---
1615 while reviewing discharge information pts own blood glucose monitor alarmed at 48- a bgt at bedside was 65- spoke with cynthia and made aware- ok for dc to home.
--- NOTE | 2024-09-05 12:06 | CASEMGMT ---
Social Work Assessment Labor and Delivery Unit Patient Address:[address] [place] [address]. [place] [address] Phone number: [phone] Date of Referral: 09/02/24 Time of Referral:? 08 Referred By: Brie Boss Date of Intervention: 09/05/24?? Time of Intervention:? 944 Reason for Referral:? anxiety, hx drug use narcotic pain meds for back pain in 2016 Sw completed chart review and acknowledges social work consult due to maternal mental health history and history of use of narcotic pain medication. Sw presented to bedside and introduced self to mother of baby (MOB- Sandi). Sw completed most of assessment with just MOB present, until father of baby (FOB- Zack) returned to bedside and also participated. History obtained from: medical records, MOB and FOB. Household composition: Currently residing in the family home is HOMAR, TANYA, MOB's three former children: Amy (18), Renuka (14) and Bois D [place] (7), MOB and FOB's three older children together: Maribel (4), [place] (3) and [place] (1). baby to be added to residence when medically ready for discharge. MOB denies any issues or concerns with current housing. Patient's parent/guardian status:? ?Parents report that they have been together for 8 years after knowing each other for a long time, but did not start talking until later in life. MOB denies any issues or concerns with domestic violence or intimate partner violence. baby is fourth baby for MOB and FOB together. Medical History: ?HOMAR is 34 year old female who is 9, para 7- now 8. HOMAR received routine care during with [facility]. HOMAR presented to hospital for scheduled induction of labor and delivered baby via spontaneous vaginal delivery at 37 weeks. Baby girl, Shauna, was born weighing 6lb 12 oz with apgars of 8 and 9. HOMAR reports that she is breast feeding baby. Baby will be followed by Dr. Nichols for pediatrics. - Nursing staff report that HOMAR has not consistently been feeding baby every 2-3 hours, it has been more ad rafia. Baby is down 10% of her weight. Supplementation with formula and donated breast milk have been offered to HOMAR however she has declined. HOMAR is pumping and feeding on demand. Educational Status:? Both parents graduated from high school. HOMAR states that she has obtained an associates degree in social work. FOJulio Cesar graduated from high school. Parents deny any issues with reading, learning or comprehension. 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 HOMAR is a stay at home mom and does not work. Supplies: Parents report to having all necessary baby supplies, including: car seat, safe sleep space, clothes, diapers and wipes. Childcare/Caregiver(s):? HOMAR is the primary caregiver to baby, along with TANYA when not at work. Transportation:?? Both parents have their drivers license and reliable means of transportation. No barriers. Programs/Agencies Involved: ???HOMAR is connected to insurance through [employer] ([employer]) and [employer] benefits, [employer], [employer] for her older daughter (Lissa) and denies any other agency involvement. Children Services/Legal Issues:??No reported history of children services involvement. HOMAR discloses that Children Services did come to her home one time when her oldest daughter ran away from home, but the agency did not remain involved. ? Behavioral Health Issues: ?? Mental Health History: TANYA denies mental health history. HOMAR has been diagnosed with anxiety and depression in the past, however at this time she denies any diagnoses. When discussing depression/ anxiety and baby blues HOMAR denies ever experiencing them following any of her prior pregnancies. Substance Use History:?HOMAR reports that she had a significant back injury that resulted in prescription of pain medication, ultimately leading to dependency. MOB states that she is is no longer taking the pain medication, and using the help of a professional MOB discontinued use of prescription pain medication and is now prescribed Subutex. HOMAR states that she sees Dr. Funmi Guadalupe out of [facility] and is prescribed 16 mg of Subutex. MOB denies use of other drugs and/ or alcohol. FOJulio Cesar also denies substance use prior to and during . - Broderick obtained release of information giving this 'er permission from [facility] to call Dr. Guadalupe's office to confirm MOB's prescription for subutex. Broderick called on this date, spoke to a worker named Gregory who confirmed that MOB is prescribed Subutex by Dr. Guadalupe - Baby will remain admitted until Friday 09/07 at the earliest in order to be monitored for 5-7 days using [facility] to assess for any withdrawal symptoms she may experience due to MOB using a controlled substance during . Family History:??Parents deny family history Drug Screens: MOB urine screen at time of delivery was negative for all substances, however was not screened for Buprenorphine. Baby's urine was positive for Buprenorphine at time of delivery, meconium still pending. Family/Social Stressors:?MOB states that the only stress she has at this time, is due to hospital staff making her feel as though she has been abusing drugs/ medications. Broderick apologized, stating that staff should not make her feel that way. Sw explained to MOB that it is sw's job to ensure that the medication MOB is prescribed that is a controlled substance is something that she still has a prescription for. MOB expressed understanding. Support Systems: MOB identified that FOB is her biggest support. MOB denies having any other friends or family members that are supportive. Depression/Shaken Baby/Safe Sleeping: Sw educated MOB and FOB briefly on signs and symptoms of baby blues and mood and anxiety disorders to be mindful of during this period. MOB stated that she is familiar with what to be on the lookout for, and is not worried because she has never struggled with her mental health in the past after a delivery. Sw educated parents on shaken baby prevention and ABCs of safe sleep. Parents express understanding. ASSESSMENT:? MOB and baby admitted following labor and delivery. Earliest discharge date for baby is Sunday due to being monitored using [facility] protocols to assess for any signs of withdrawal as a result of MOB using a controlled substance during . Broderick met with MOB in room, introduced self and explained role. MOB initially laying in bed feeding baby, and stated it was okay to complete assessment. MOB states that FOB left, but would be returning soon. MOB expressed knowing that baby would need to be monitored, however she was not prepared to feel like she is a drug addict from other staff. Sw again apologized for how MOB was feeling. MOB states that she has never struggled with her mental health following a labor/ delivery, but is receptive to information and education provided. FOB observed to be supportive to MOB and held baby in loving manner when he returned to room. Safe Plan of Care for related to substance use:? Remain on prescribed regimen and adhere to treatment plan with prescribing physician. PLAN:?? No other services requested or indicated. MOB and baby to be discharged when medically ready. Parents were provided literature regarding: signs and symptoms of baby blues and mood and anxiety disorders, [employer], shaken baby prevention, ABCs of safe sleep and a list of county resources that are available for them should any needs present themselves. Ladi Triana, BUILDING INSULATION INSTALLER, MEDICAL STENOGRAPHER
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
== END 2024-09-04 17:15 | disposition home or self-care (01) | DRG 560 ==
PROVIDERS: Advanced Practice Midwife; Admitting Provider Obstetrics & Gynecology; PCP Physician Assistant; Referring Provider Obstetrics & Gynecology; Visit Provider Obstetrics & Gynecology
DX: O24.424 Gestational diabetes mellitus in childbirth, insulin controlled (principal); Z37.0 Single live birth; O99.344 Other mental disorders complicating childbirth; F11.91 Opioid use, unspecified, in remission; O99.214 Obesity complicating childbirth; O99.324 Drug use complicating childbirth; F41.9 Anxiety disorder, unspecified; O69.81X0 Labor and delivery complicated by cord around neck, without compression, not applicable or unspecified; Z87.891 Personal history of nicotine dependence; Z3A.37 37 weeks gestation of pregnancy; Z88.0 Allergy status to penicillin
CPT/HCPCS: 59025; 59050; 80307; 82962; 85025; 86780; 86850; 86900; 86901; 88307; 99221; J7120; G0378

== ENCOUNTER → 2024-09-17 | Outpatient (CLI) | payer MEDICAID, SELFPAY ==
[2024-09-17 12:41] LABS: Absolute Lymphocyte Count 2.22 X10^3/uL (0.83-4.51); Absolute Neutrophil Count 2.9 X10^3/uL (2.0-7.7); Basophil# 0.05 X10^3/uL; Basophil% 0.9 % (0-1); Eosinophil# 0.18 X10^3/uL; Eosinophils% 3.2 % (0-5); Hematocrit 45.2 % (37-47); Hemoglobin 14.6 g/dL (12.0-15.0); Lymphocyte # 2.22 X10^3/ul (0.83-4.51); Lymphocyte % 39.3 % (19-41); Mean Corp Hgb Conc 32.3 g/dL (32-36); Mean Corpuscular Hgb 30.1 pg (27.0-32.0); Mean Corpuscular Volume 93.2 fL (81-99); Mean Platelet Vol. 10.1 fl (6.2-12.0); Monocyte# 0.29 X10^3/uL; Monocyte% 5.1 % (0-10); NRBC Flagged by Analyzer 0 % (0-5); Neutrophil % 51.3 % (47-70); Platelet Count 210 K/mm3 (150-450); RBC Distribution Width CV 13.9 % (11.6-14.6); RBC Distribution Width SD 47.8 fl (35.1-43.9); Red Blood Count 4.85 M/mm3 (4.2-5.4); White Blood Count 5.7 K/mm3 (4.4-11.0)
[2024-09-17 13:06] LABS: ALB/GLOB Ratio 0.9 RATIO (0.9-2.4); AST(SGOT) 25 U/L (15-37); Alanine Aminotransfer ALT/SGPT 39 U/L (13-56); Albumin, Serum 3.4 g/dL (3.2-5.0); Alkaline Phosphatase 73 U/L (45-117); Anion Gap 4 (5-15); BUN 20 mg/dL (7-18); BUN/Creat Ratio 23.4 RATIO (10-20); Calcium,Total 8.9 mg/dL (8.5-10.1); Chloride 112 mmol/L (98-107); Creatinine, Serum 0.85 mg/dL (0.55-1.02); EST Glomerular Filtration Rate 80 mL/min (>60); Est Glom Filt Rate - Afr Amer 97 mL/min (>60); Globulin 3.6 g/dL (2.2-4.2); Glucose 81 mg/dL (74-106); Potassium 4.1 mmol/L (3.5-5.1); Sodium Level 141 mmol/L (136-145)
[2024-09-17 14:28] LABS: Hemoglobin A1c 5.6 % (3.8-5.6)
== END | disposition home or self-care (01) ==
LOC: BIMLAB 11:30
PROVIDERS: PCP Physician Assistant; Referring Provider Physician Assistant; Visit Provider Physician Assistant
DX: O24.419 Gestational diabetes mellitus in pregnancy, unspecified control (principal); Z3A.00 Weeks of gestation of pregnancy not specified
CPT/HCPCS: 36415; 80053; 83036; 85025

== ENCOUNTER 2025-06-02 14:20 | Emergency (ER) | payer MEDICAID, SELFPAY ==
[2025-06-02 14:22] VITALS: BP 149/99; PULSE 120; RESP 15; TEMP 36.2; O2SAT 99; BMI 34.6
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
[2025-06-02] MEDS: 0.9% Normal Saline (1000mL) 1,000 ML 1000 ML IV (14:47)
[2025-06-02 15:20] VITALS: BP 142/68; PULSE 104; RESP 24; O2SAT 98
[2025-06-02] MEDS: BACITRACIN 15 GM Tube 1 APPLIC TOPICAL (15:41)
[2025-06-02 16:00] VITALS: BP 135/99; PULSE 62; RESP 22; O2SAT 98
[2025-06-02 16:26] VITALS: BP 135/102; PULSE 97; RESP 20; TEMP 36; O2SAT 98
== END 2025-06-02 16:32 | disposition home or self-care (01) ==
PROVIDERS: Emergency Provider Emergency Medicine; PCP Physician Assistant; Visit Provider Emergency Medicine
DX: O9A.211 Injury, poisoning and certain other consequences of external causes complicating pregnancy, first trimester (principal); Z79.4 Long term (current) use of insulin; E11.9 Type 2 diabetes mellitus without complications; T23.231A Burn of second degree of multiple right fingers (nail), not including thumb, initial encounter; O09.511 Supervision of elderly primigravida, first trimester; T23.171A Burn of first degree of right wrist, initial encounter; X04.XXXA Exposure to ignition of highly flammable material, initial encounter; T22.111A Burn of first degree of right forearm, initial encounter; T22.121A Burn of first degree of right elbow, initial encounter; T22.131A Burn of first degree of right upper arm, initial encounter; T20.17XA Burn of first degree of neck, initial encounter; T20.19XA Burn of first degree of multiple sites of head, face, and neck, initial encounter; T24.111A Burn of first degree of right thigh, initial encounter; Z23 Encounter for immunization; Z87.891 Personal history of nicotine dependence; Z3A.01 Less than 8 weeks gestation of pregnancy; O24.911 Unspecified diabetes mellitus in pregnancy, first trimester
CPT/HCPCS: 90715; 96361; 96374; 99284; A4216

== ENCOUNTER 2025-07-01 19:58 | Emergency (ER) | payer MEDICAID, SELFPAY ==
[2025-07-01 19:59] VITALS: BP 123/75; PULSE 92; RESP 18; TEMP 36.8; O2SAT 100; BMI 33.7
--- NOTE | 2025-07-01 20:11 | EDS_ITS ---
HPI History of Present Illness Chief Complaint: Palpitations [facility] Medical History (spontaneous vaginal delivery) Uterine anomaly Pre-eclampsia Gestational diabetes Tooth infection MRSA infection Substance abuse Insulin dependent diabetes mellitus Restless legs Dietary restriction Former smoker History of edema History of echocardiogram Cardiomyopathy Atrial tachycardia Opioid dependence History of pre-term labor History of cardiomyopathy Lumbar radiculopathy PCOS (polycystic ovarian syndrome) UTI (urinary tract infection) Dysuria Vaginal discharge Scabies Gave to child recently Crushing injury of left thumb Arrhythmia neck/back pain Limb weakness Difficulty balancing Severe headache Heart disease Hemorrhoids Home Medications ?Medication ?Instructions ?Recorded ?Last Taken ?Type buprenorphine HCl 8 mg sublingual 16 mg sublingual YANCI LY Check with 04/10/23 09/01/24 17:00 History tablet primary doctor 8 mg [id number] 1 mg 1 tab PO DAILY pregna ncy 04/10/23 09/01/24 09:00 History tablet blood-glucose sensor (Dexcom G7 #3 ea 09/17/24 Unknown Rx Sensor device) cephalexin 500 mg capsule 500 mg PO Q8H 5 days #15 cap s 07/01/25 Unknown Rx clindamycin HCl 300 mg capsule 300 mg PO TID 07/01/25 Unknown History Allergy/AdvReac Type Severity Reaction Status Date / Time ciprofloxacin Allergy Unknown unknown Verified 07/01/25 20:01 cyclobenzaprine (From Allergy Swelling Verified 07/01/25 20:01 Flexeril) Penicillins Allergy Swelling Verified 07/01/25 20:01 Family History Father Cancer Mother Afib Fibromyalgia Surgical History History of D&C History of radiofrequency ablation (RFA) procedure for cardiac arrhythmia Social History household members: spouse housing: house Smoking Status: Former smoker Tobacco: How many years used: 2 second hand exposure: No alcohol intake: never substance use type: does not use what type of physical activity do you participate in: none EXAM Physical Exam Const Vital Signs: 07/01/25 19:59 07/01/25 20:55 07/01/25 20:59 Temperature 98.2 F Temperature Source Oral Pulse Rate 92 70 Respiratory Rate 18 15 Respiratory Effort Normal Non-Labored Blood Pressure 123/75 H 109/68 Blood Pressure Mean 91 81 Pulse Ox 100 99 Oxygen Delivery Method Room Air Room Air 07/01/25 22:06 Temperature Temperature Source Pulse Rate 75 Respiratory Rate 16 Respiratory Effort Blood Pressure 107/70 Blood Pressure Mean 82 Pulse Ox 98 Oxygen Delivery Method [facility] MDM Narrative Medical decision making narrative: HISTORY OF PRESENT ILLNESS: Chief complaint: Palpitations 35-year-old female history of PCOS, cardiomyopathy, opiate use, depression, presents with concern for palpitations. Notes history of ablations due to arrhythmias in the past. States she is 13 weeks . Notes symptoms have been intermittent. Notes afebrile for several days. Notes given history of ablation she was concerned that she started feeling palpitations. She denies associated shortness of breath or syncope denies leg swelling. Denies drug use. Denies vaginal bleeding, passage of tissue or leakage of any fluid. Denies abdominal pain. Denies bleeding diathesis. Denies cough fever or chills. De nies urinary complaints or dysuria, hematuria frequency or urgency. REVIEW OF SYSTEMS: Pertinent positives: Palpitations, weakness Pertinent negatives: Chest pain, shortness of breath PHYSICAL EXAM: Nursing triage notes reviewed, Vital signs reviewed Constitutional: please see mdm HENT: MMM Eyes: Pupils equal round and reactive to light, Extraocular muscles intact Neck: No stridor, no JVD, full neck ROM Lungs: Clear to auscultation, No wheezing or rales. No increased work of breathing, no conversational dyspnea, no accessory muscle use, no nasal flaring. No respiratory distress noted Heart: Regular rate and rhythm, No murmurs, No rubs and No gallops, 2+ distal pulses (radial, femoral, posterior tibial) in all extremities Abdomen: Soft, there is no tenderness, rigidity, rebound or guarding, no obvious peritoneal signs, no palpable pulsatile abdominal masses, no auscultated abdominal bruit : No CVAT Extremities: No edema Neuro: No new focal neurological deficits, cranial nerves II through XII intact, 5/5 strength in all present extremities. Intact sensation to light touch in all present extremities, 2+ reflexes bilateral patella tendons. Skin: No rash or lesions noted MEDICAL DECISION MAKING: Chief Complaint: please see HPI External records reviewed: Reviewed prior cardiovascular testing Factors affecting care: as per [facility] Social determinants of health: 13 weeks OB History obtained from others: none Consults: none [facility] Narrative: The patient was initially hemodynamically stable, afebrile and nontoxic- appearing. Exam without focal cardiopulmonary abnormalities. Abdomen soft nontender. No lower extremity edema. No stigmata of CHF, VTE or early dissection on initial exam. No stigmata of thyroid disease on initial exam. I considered the following differential diagnosis: Arrhythmia, anemia, electrolyte disturbance, dehydration I obtained a broad lab and imaging to further determine if the patient was suffering from a life-threatening etiology. Initially assessed the patient 1 L normal saline ALL IMAGES (IF OBTAINED) HAVE BEEN PERSONALLY REVIEWED AND INTERPRETED BY MYSELF. EKG with normal sinus rhythm rate 85, normal axis, normal intervals, no STEMI CBC with no leukocytosis (which suggest no sign of significant systemic inflammation, sepsis), no anemia or thrombocytopenia noted High-sensitivity troponin is negative, no evidence of myocardial ischemia I have personally reviewed the patient's chest x-ray. Chest x-ray is unremarkable for pulmonary edema, pneumothorax, pneumonia or focal cardiopulmonary abnormality. Urinalysis with leuk esterase and rare bacteria concern for asymptomatic bacteria in . Will prophylactically give Keflex. Will send urine for culture. Vital signs remained stable. Heart rate was 75. No clear life limb-threatening etiology could be ascertained. Patient was given outpatient follow-up instructions and strict return precautions. Holter monitor instructions were given. No indication for admission or further testing at this time. The patient and/or family, caregivers express understanding. The patient and/or family, caregivers agrees with the plan. Shared decision making: I will have a discussion with the patient and or visitors regarding risk/benefits of further testing or admission. They will be made aware of of the risk/benefits inherent in this decision they will be given the opportunity to voice understanding. Total critical care time today provided was at least 0 minutes. This excludes separately billable procedures. Critical care time (if documented) is secondary to the patient having high probability of clinically significant/life threatening deterioration in the patient's condition which required my urgent intervention. Impression: 1. Palpitations 2. History of SVT 3. Asymptomatic bacteria in Dispo: Discharge home This note was generated with Intellikineation software. It may contain incorrect words, spelling, and punctuation that were not noted in review of the chart prior to signing. Lab Data Labs: Laboratory Results - last 24 hr 07/01/25 07/01/25 20:20 22:12 WBC 5.2 RBC 4.14 L Hgb 12.3 Hct 35.9 L MCV 86.7 MCH 29.7 MCHC 34.3 RDW Std Deviation 42.0 RDW Coeff of [place] 13.3 Plt Count 150 MPV 9.8 Immature Gran % (Auto) 0.200 Neut % (Auto) 76.6 H Lymph % (Auto) 15.3 L [place] % (Auto) 5.6 Eos % (Auto) 2.1 Baso % (Auto) 0.2 Absolute Neuts (auto) 4.0 Absolute Lymphs (auto) 0.79 L Nucleated RBC % 0 Sodium 136 Potassium 3.5 Chloride 102 Carbon Dioxide 23.0 Anion Gap 11 BUN 10 Creatinine 0.65 L Estim Creat Clear Calc 137.67 Est GFR (MDRD) Non-Af 116 BUN/Creatinine Ratio 16.1 Glucose 92 Calcium 9.2 Troponin T High Sens 10 Urine Color Yellow Urine Clarity Clear Urine pH 6.0 Ur Specific [place] 1.020 Urine Protein 15 H Urine Glucose (UA) Normal Urine Ketones Negative Urine Occult Blood 10 H Urine Nitrite Negative Urine Bilirubin Negative Urine Urobilinogen Normal Ur Leukocyte Esterase 100 H Urine RBC 0 SEEN Urine WBC 0-5 SEEN Ur Squamous Epith Cells 0 SEEN Urine Bacteria RARE Urine Mucus 0 SEEN Radiography Diagnostic Testing: Clinical Impression(s) from Imaging Studies Chest X-Ray 07/01/25 20:57 IMPRESSION: No focal consolidations. Reading Location: [facility] Discharge Plan Triage Chief Complaint: Palpitations ED Provider: Yazan Patel Dx/Rx/DC Orders Clinical Impression: Asymptomatic bacteriuria during , Heart palpitations Instructions: ED Heart Palpitations Prescriptions: New cephalexin 500 mg capsule 500 mg PO Q8H 5 Days Qty: 15 0RF No Action (DME) Dexcom G7 Sensor Device See Rx Instructions .Route Qty: 3 2RF Rx Instructions: Monitor glucose minimum 4 times daily [id number] 1 mg Tablet 1 tab PO DAILY buprenorphine HCl 8 mg Tablet, Sublingual 16 mg SUBLINGUAL DAILY clindamycin HCl 300 mg capsule 300 mg PO TID Primary Care Provider: Schuyler Becker Referrals: Schuyler Becker, REYNA [Primary Care Provider] - Activity Restrictions/Additional Instructions: Thank you for trusting us with your care today! Your labs images are reassuring. Specifically no sign of abnormal heart rhythms, significant anemia, electrolyte disturbances, heart damage. Your urine showed evidence of some inflammation which in can lead to poor outcomes. Given signs of inflammation in your urine I will start you on an antibiotic called Keflex (cephalexin). This is safe in . Please take Tylenol (2 pills, 650 mg), ibuprofen (2 pills, 400 mg) every 6 hours as needed for pain and fever control. Please return to the emergency department if your symptoms change or worsen. Please follow with your primary care physician and [employer] for further outpatient evaluation and management. Print Language: Hong [place]er Disposition Disposition: Home, Self Care Discharge Date/Time: 07/01/25 23:07
--- NOTE | 2025-07-01 20:22 | EKG12_ITS ---
Test Reason : PALP Blood Pressure : */* mmHG Vent. Rate : 85 BPM Atrial Rate : 85 BPM P-R Int : 166 ms QRS Dur : 80 ms QT Int : 356 ms P-R-T Axes : 44 18 29 degrees QTcB Int : 423 ms Normal sinus rhythm Low voltage QRS Borderline ECG Confirmed by DOLLY MCHUGH, INDERJIT ([id number]), features editor MARCELLA LUCIANO ([id number]) on 07/03/2025 9:39:32 AM Referred By: CARYL Confirmed By: INDEJRIT ALBERTO MD
[2025-07-01 20:32] LABS: Hematocrit 35.9 % (37-47); Hemoglobin 12.3 g/dL (12.0-15.0); Immature Granulocytes Count 0.010 X10^3/uL (0.0-0.0); Mean Corp Hgb Conc 34.3 g/dL (32-36); Mean Corpuscular Volume 86.7 fL (81-99); Mean Platelet Vol. 9.8 fl (6.2-12.0); NRBC Flagged by Analyzer 0 % (0-5); Platelet Count 150 K/mm3 (150-450); RBC Distribution Width CV 13.3 % (11.6-14.6); RBC Distribution Width SD 42.0 fl (35.1-43.9); Red Blood Count 4.14 M/mm3 (4.2-5.4); White Blood Count 5.2 K/mm3 (4.4-11.0)
[2025-07-01] MEDS: 0.9% Normal Saline (1000mL) 1,000 ML 1000 ML IV (20:53)
--- NOTE | 2025-07-01 20:57 | RAD_ITS ---
PROCEDURE: CHEST 1 VIEW (PORTABLE) 07/01/2025 REASON FOR EXAM: PALPITATIONS TECHNIQUE: Frontal view of the chest. COMPARISON: 02/07/24 FINDINGS: No focal consolidation. No pleural effusion or pneumothorax. Cardiac silhouette is within normal limits. No acute fractures. RAD/Chest 1 View (Portable) IMPRESSION: No focal consolidations. Reading Location: [facility]
[2025-07-01 20:59] VITALS: BP 109/68; PULSE 70; RESP 15; O2SAT 99
[2025-07-01 22:06] VITALS: BP 107/70; PULSE 75; RESP 16; O2SAT 98
[2025-07-01 22:10] LABS: Anion Gap 11 (5-15); BUN 10 mg/dL (4-19); BUN/Creat Ratio 16.1 RATIO (10-20); Calcium,Total 9.2 mg/dL (7.6-11.0); Carbon Dioxide 23.0 mmol/L (21.0-32.0); Chloride 102 mmol/L (98-108); Estimated Creatinine Clearance 137.67 ml/min (50-250); Glucose 92 mg/dL (70-99); Potassium 3.5 mmol/L (3.3-5.1)
[2025-07-01 22:22] LABS: Mucous, Urine 0 SEEN /hpf (<or=2+); Red Blood Cells-Urine 0 SEEN /hpf (0-5); Squamous Epithelial Cells - UA 0 SEEN /hpf (5-10)
[2025-07-01 22:26] LABS: Troponin T High Sensitivity 10 ng/L (<=14)
[2025-07-01 22:36] LABS: Color, Urine Yellow (Yellow); Glucose, Dipstick Normal (Normal); Ketone-Dipstick Negative (Negative); Leukocyte Esterase-Dipstick 100 /ul (Negative); Nitrite-Dipstick Negative (Negative); Occult Blood-Urine 10 /ul (Negative); Protein-Dipstick 15 mg/dl (Negative); Specific Gravity, Urine 1.020 (1.002-1.030); Urine Bilirubin Dipstick Negative (Negative)
[2025-07-01 23:06] VITALS: BP 107/70; PULSE 73; RESP 18; O2SAT 96
[2025-07-01 23:07] VITALS: BP 107/70; PULSE 73; RESP 18; TEMP 36.8; O2SAT 96
== END 2025-07-01 23:07 | disposition home or self-care (01) ==
PROVIDERS: Emergency Provider Emergency Medicine; PCP Physician Assistant; Visit Provider Emergency Medicine
DX: O99.411 Diseases of the circulatory system complicating pregnancy, first trimester (principal); I42.9 Cardiomyopathy, unspecified; E11.9 Type 2 diabetes mellitus without complications; O24.311 Unspecified pre-existing diabetes mellitus in pregnancy, first trimester; R00.2 Palpitations; R82.71 Bacteriuria; O09.521 Supervision of elderly multigravida, first trimester; Z87.891 Personal history of nicotine dependence; O26.891 Other specified pregnancy related conditions, first trimester; Z3A.13 13 weeks gestation of pregnancy; O24.111 Pre-existing type 2 diabetes mellitus, in pregnancy, first trimester
CPT/HCPCS: 71045; 80048; 81001; 84484; 85025; 87086; 93005; 96360; 99284; A4216